=== PATIENT | female | born 1960 | race Caucasian/White ===

== ENCOUNTER 2016-11-14 18:58 | Inpatient (IN) | payer MEDICAID ==
[~2016-11-14] VITALS: Ht 172.7 cm; Wt 95.7 kg
[2016-11-14 20:00] VITALS: BP 110/59
[2016-11-14 20:41] VITALS: BP 110/59; BMI 32.1
--- NOTE | 2016-11-14 21:00 | NUR ---
Received patient resting in bed with eyes open, assessment completed per flowsheet. Patient AO x4, calm and cooperative. Eyes PERRLA @ 4mm with brisk response, sclera is white. S1/S2 noted rhytmic and regular. Breathing is slightly shallow with frequent non-productive cough, crackles and expiratory wheeze noted bilateral upper and mid with diminished lower. Patient ambulates self to bathroom w/o assistance. Full ROM all extremities with all pulses palpable, cap refill < sec with skin warm/dry to touch. 20g PIV L hand, salin locked. Patient c/o chronic pain back and ankle, repositioned and will provide PRN medication when available. [place] tray provided, no further needs at this time. All VSS and will continue to monitor.
--- NOTE | 2016-11-14 23:00 | NUR ---
Patient resting in bed with eyes open watching TV, reassessment completed per flowsheet. S1/S2 noted rhythmic and regular. Breathing is slightly shallow on 2L via NC, crackles and expiratory wheeze noted bilateral upper and mid with diminished lower. All pulses palpable with cap refill < 3 sec, skin is warm/dry to touch. No further needs at this time, all VSS and will continue to monitor.
[2016-11-15] VITALS: BP 95/54
--- NOTE | 2016-11-15 01:00 | NUR ---
Patient resting in bed with eyes closed, no further needs at this time. All VSS and will continue to monitor.
[2016-11-15 01:07] LABS: BASOPHILS 0.1 % (0-2); EOSINOPHILS 1.9 % (0-7); HEMATOCRIT 37.6 % (36.0-48.0); HEMOGLOBIN 12.8 g/dL (12-16); IMMATURE GRANULOCYTES 0.2 % (0-5); LYMPHOCYTES 15.1 % (15-50); MCV 96.9 fL (80.0-100.0); MEAN PLATELET VOLUME 9.1 fL (7.4-10.4); MONOCYTES 9.7 % (2-11); PLATELET COUNT 261 10x3/uL (130-400); RBC 3.88 10x6/uL (4.00-5.40); RDW 14.5 % (11.5-14.5); WBC 12.5 10x3/uL (4.8-10.8)
[2016-11-15 01:32] LABS: ALKALINE PHOSPHATASE 60 U/L (46-116); ALT (SGPT) 35 U/L (10-68); CALC OSMOLALITY 277 mosm/kg (275-300); CARBON DIOXIDE 28.4 mmol/L (21.0-32.0); CHLORIDE - SERUM 101 mmol/L (98-107); CREATININE - SERUM 0.8 mg/dL (0.6-1.3); GLUCOSE 104 mg/dL (74-106); POTASSIUM - SERUM 3.2 mmol/L (3.5-5.1); PRO BNP 185 pg/mL (0-125); PROTEIN - SERUM 6.6 g/dL (6.4-8.2); SODIUM 140 mmol/L (136-145); UREA NITROGEN 10 mg/dL (7-18); eGFR NON AFRICAN AMERICAN 78 mL/min (90-120)
--- NOTE | 2016-11-15 03:00 | NUR ---
Reassessment completed per flowsheet, patient resting in bed with eyes closed. S1/S2 noted rhythmic and regular. Breathing is slightly shallow with frequent non-productive cough, crackles and expiratory wheeze noted bilateral upper with diminished lower. Patient c/o "feeling hot", temp checked and 98.4 result. All pulses palpable with cap refill < 3 sec, skin warm/dry to touch. All VSS and will continue to monitor.
[2016-11-15 03:59] VITALS: BP 107/50
--- NOTE | 2016-11-15 05:00 | NUR ---
Patient resting in bed with eyes closed, breathing is slightly shallow on 2L via NC. Patient denies pain or other needs at this time, all VSS and will continue to monitor.
--- NOTE | 2016-11-15 07:30 | NUR ---
PT IS RECEIVED LYING IN BED. SHE IS COUGHING. I ASKED HER IF SHE SMOKES. SHE STATES YES THAT IS ANOTHER REASON IM HAVING PROBLEMS, I HAVEN'T HAD A CIGARETTE SINCE YESTERDAY. I ASKED IF SHE WOULD LIKED TO HAVE A NICOTINE PATCH AND SHE STATES YES. SHE IS ON O2 AT 2L VIA NC. IV NOTED LEFT HAND PATENT WITH NS AT 60 CC/HR INFUSING. SHE IS PRESENTLY RECEIVING BREATHING TREATMENT. SHE STATES THAT HER PAIN IS AN ASKED. WHEN ASKED WHERE HER PAIN IS SHE STATES SEVERAL AREAS OF HER BODY THAT HURT HER. GEN- AWAKE AND ALERT- LUNGS - WITH CRACKLES BILATERALLY. HEART- RRR. ABD- OBESE, SOFT, NT. EXT-NO EDEMA NOTED. BED IA LOW, SIDE RAILS UP X 2 AND CALL LIGHT IN REACH.
[2016-11-15 07:46] LABS: BASOPHILS 0.1 % (0-2); EOSINOPHILS 2.6 % (0-7); HEMATOCRIT 37.6 % (36.0-48.0); HEMOGLOBIN 12.6 g/dL (12-16); IMMATURE GRANULOCYTES 0.2 % (0-5); LYMPHOCYTES 20.3 % (15-50); MCH 32.7 pg (26.0-34.0); MCHC 33.5 g/dL (31.0-37.0); MCV 97.7 fL (80.0-100.0); MEAN PLATELET VOLUME 9.1 fL (7.4-10.4); MONOCYTES 11.1 % (2-11); NEUTROPHILS 65.7 % (40-80); PLATELET COUNT 259 10x3/uL (130-400); RBC 3.85 10x6/uL (4.00-5.40); RDW 14.6 % (11.5-14.5); WBC 11.1 10x3/uL (4.8-10.8)
[2016-11-15 08:11] LABS: ALKALINE PHOSPHATASE 63 U/L (46-116); ALT (SGPT) 34 U/L (10-68); CALC OSMOLALITY 280 mosm/kg (275-300); CALCIUM 9.2 mg/dL (8.5-10.1); CARBON DIOXIDE 29.7 mmol/L (21.0-32.0); CHLORIDE - SERUM 102 mmol/L (98-107); CREATININE - SERUM 0.8 mg/dL (0.6-1.3); GLUCOSE 86 mg/dL (74-106); POTASSIUM - SERUM 3.2 mmol/L (3.5-5.1); PROTEIN - SERUM 6.8 g/dL (6.4-8.2); SODIUM 142 mmol/L (136-145); UREA NITROGEN 9 mg/dL (7-18); eGFR NON AFRICAN AMERICAN 78 mL/min (90-120)
--- NOTE | 2016-11-15 09:00 | NUR ---
PT REQUEST NICOTINE PATCH. SHE SMOKES 2 PKS A DAY DISCUSSED WITH CHRISTIANO CHICAS. SHE WILL ORDER/
[2016-11-15 09:24] VITALS: BP 195/134
--- NOTE | 2016-11-15 10:53 | NUR ---
PT LYING IN BED. SHE REQUEST A FAN BECAUSE SHE IS HOT.
--- NOTE | 2016-11-15 11:48 | NUR ---
IV OUT. 22GA X 1 STICK TO LEFT FOREARM. IV POLE LEFT ON RIGHT SIDE OF BED TO ALLOW FOR EASE TO BATHROOM. ALL MEDS INCL ANTIBIOTICS AND PAIN PILLS REVIEWED WITH PATIENT ALONG WITH DIAGNOSIS. STATES UNDERSTANDING. CALL LIGHT IN REACH
[2016-11-15 13:39] VITALS: Ht 172.7 cm; Wt 95.7 kg
[2016-11-15 14:02] VITALS: BP 113/61
--- NOTE | 2016-11-15 15:40 | NUR ---
PT IS SITTING UP IN MED VISITING WITH HER DAUGHTER. PT OFFERS NO COMPLAINTS. BED IS LOW. SIDE RAILS UP X 2 AND CALL LIGHT IN REACH. DR LOPEZ TO SEE PT.
[2016-11-15 16:20] VITALS: BP 123/71
[2016-11-15 20:00] VITALS: BP 114/72
--- NOTE | 2016-11-15 23:45 | NUR ---
PATIENT IS RESTING QUIETLY WITH EYES CLOSED. LAYING ON HER RIGHT SIDE. RECIEVING OXYGEN VIA NASAL CANNULA. PATIENT AROUSED EASILY, DENIES NEEDS. BED IN LOWEST POSITION, CALL LIGHT IN REACH. BED RIALS UP X'S 2. HOB 40 DEGREES.
[2016-11-16] VITALS: BP 120/73
[2016-11-16 04:00] VITALS: BP 122/80
--- NOTE | 2016-11-16 07:40 | NUR ---
AMBULATED TO RESTROOM AT THIS TIME WITHOUT DIFFICULTY. DENIES NEEDS. IV PATENT. CALL LIGHT IN REACH, WILL CONTINUE WITH PLAN OF CARE.
[2016-11-16 08:21] VITALS: BP 107/66
--- NOTE | 2016-11-16 10:29 | NUR ---
PT COMPLAINS OF FREQUENT DIARRHEA WITH 4 STOOLS TODAY. ORDER OBTAINED FOR C-DIFF CHECK. EXPLAINED THIS TO PT. VERBALIZES UNDERSTANDING. WILL TEST NEXT SAMPLE OF FECES.
--- NOTE | 2016-11-16 10:36 | NUR ---
PT CURRENTLY AWAKE [id number]% BILATERAL CRACKLES AND EXPIRATORY WHEEZING NOTED TO APICAL AREAS OF THE LUNGS. STRONG LOOSE NON PRODUCTIVE COUGH. ALERT AND ORIENTATED X 3. PT APPEARS TO BE VENTILATING ADEQUATE NO SIGNS OF SEVERE RESPIRATORY DISTRESS
[2016-11-16] MEDS ORDERED: VICTOZA0.6 MG/0.1 SQ (11:14)
[2016-11-16] MEDS ORDERED: K-DUR20 MEQ PO (11:15)
[2016-11-16] MEDS ORDERED: VYVANSE40 MG PO (11:15)
[2016-11-16] MEDS ORDERED: CARDIZEM30 MG PO (11:15)
[2016-11-16] MEDS ORDERED: HYDROCODONE-APA1 TAB PO (11:15)
[2016-11-16] MEDS ORDERED: VITAMIN D250000 UNIT PO (11:17)
[2016-11-16] MEDS ORDERED: KLONOPIN0.5 MG PO (11:19)
[2016-11-16] MEDS ORDERED: VITAMIN B-1000 MCG/M IM (11:19)
[2016-11-16] MEDS ORDERED: ALBUTEROL2.5 MG/3 M INH (11:20)
[2016-11-16] MEDS ORDERED: ROBAXIN500 MG PO (11:20)
[2016-11-16] MEDS ORDERED: FLUTICASONE PRO16 GM NASAL (11:21)
[2016-11-16] MEDS ORDERED: HCTZ25 MG PO (11:21)
[2016-11-16] MEDS ORDERED: LOVASTATIN40 MG PO (11:21)
[2016-11-16] MEDS ORDERED: GABAPENTIN100 MG PO (11:22)
[2016-11-16] MEDS ORDERED: PROAIR HFA8.5 GM INH (11:22)
[2016-11-16] MEDS ORDERED: ARTHROTEC EC 71 EACH PO (11:23)
[2016-11-16] MEDS ORDERED: SPIRIVA18 MCG INH (11:24)
[2016-11-16] MEDS ORDERED: METFORMIN HCL500 M1 PO (11:24)
[2016-11-16] MEDS ORDERED: CYMBALTA60 MG PO (11:25)
[2016-11-16] MEDS ORDERED: ROTIGOTINE TRANSDERM (11:28)
[2016-11-16] MEDS ORDERED: PROMETRIUM100 MG PO (11:30)
[2016-11-16] MEDS ORDERED: BUTALB-APAP-CA1 EACH PO (11:31)
[2016-11-16] MEDS ORDERED: ABILIFY10 MG PO (11:31)
[2016-11-16] MEDS ORDERED: AMBIEN10 MG PO (11:32)
[2016-11-16] MEDS ORDERED: DOXEPIN HCL10 MG PO (11:32)
[2016-11-16] MEDS ORDERED: TEMAZEPAM30 MG PO (11:33)
[2016-11-16] MEDS ORDERED: OMEGA 3 FISH OI1 CAP PO (11:33)
--- NOTE | 2016-11-16 11:50 | NUR ---
PRN FIORCET ADMINISTERED FOR HEADACHE AT THIS TIME.
[2016-11-16 12:00] VITALS: BP 123/74
--- NOTE | 2016-11-16 13:05 | NUR ---
PLACED IN DROPLET ISOLATION DUE TO NEW ORDER FOR FLU SWAB. SWAB OBTAINED AND SENT TO LAB.
[2016-11-16 16:31] VITALS: BP 127/71
--- NOTE | 2016-11-16 19:15 | NUR ---
RECIEVED SHIFT REPORT. PT IS LYING IN BED. ALERT AND ORIENTED AND ABLE TO VERBALIZE NEEDS. IV IS PATENT AND FLUIDS ARE RUNNING PER ORDER. O2 @ 2 PER NASAL CANNULA. PT IS AMBULATORY BUT WAS INSTRUCTED TO CALL FOR ANY ASSISTANCE NEEDED. PT STATES PAIN IS 4/10. NO NEEDS ARE VERBALIZED AT THIS TIME. WILL CONTINUE TO MONITOR. SIDE RAILS ARE UP X 2. BED IS IN LOWEST POSITION. CALL LIGHT IS WITHIN REACH.
[2016-11-16 20:00] VITALS: BP 131/59
--- NOTE | 2016-11-16 21:22 | NUR ---
SHIFT ASSESSMENT COMPLETED. NIGHT MEDS GIVEN WITH NO PROBLEMS. PT RECIEVED 2 UNITS INSULIN PER SLIDING SCALE FOR QNCK=549. PT REQUESTING PRN AMBIEN FOR SLEEP. DENIES FURTHER NEEDS. WILL MONITOR. SIDE RAILS X 2. BED LOW. CALL LIGHT IN REACH.
[2016-11-17] VITALS: BP 117/68
[2016-11-17 04:00] VITALS: BP 126/70
[2016-11-17 04:55] LABS: BASOPHILS 0 % (0-2); EOSINOPHILS 0 % (0-7); HEMATOCRIT 33.3 % (36.0-48.0); HEMOGLOBIN 11.3 g/dL (12-16); IMMATURE GRANULOCYTES 0.2 % (0-5); LYMPHOCYTES 10.4 % (15-50); MCH 32.9 pg (26.0-34.0); MCHC 33.9 g/dL (31.0-37.0); MCV 97.1 fL (80.0-100.0); MONOCYTES 4.4 % (2-11); PLATELET COUNT 274 10x3/uL (130-400); RBC 3.43 10x6/uL (4.00-5.40); RDW 14.4 % (11.5-14.5); WBC 10.6 10x3/uL (4.8-10.8)
[2016-11-17 05:20] LABS: CALCIUM 8.6 mg/dL (8.5-10.1)
[2016-11-17 05:21] LABS: ANION GAP 18.6 mmol/L (8-16); CARBON DIOXIDE 22.2 mmol/L (21.0-32.0); POTASSIUM - SERUM 3.8 mmol/L (3.5-5.1)
--- NOTE | 2016-11-17 07:40 | NUR ---
SLEEPING AT THIS TIME WITH RESPIRATIONS EVEN AND NON LABORED. OXYGEN ON 2L VIA NC. CALL LIGHT IN REACH. WILL CONTINUE WITH PLAN OF CARE.
[2016-11-17 08:05] VITALS: BP 118/69
--- NOTE | 2016-11-17 09:51 | NUR ---
SCHEDULED MEDICATIONS ADMINISTERED AT THIS TIME. DENIES NEEDS. CALL LIGHT IN REACH. WILL CONTINUE WITH PLAN OF CARE.
--- NOTE | 2016-11-17 11:00 | NUR ---
AMBULATED PT TO [facility] WHERE SHE WITHDREW $260.00. ASKED PT IF SHE WOULD LIKE HER MONEY AND CARDS LOCKED UP IN THE SAFE AND SHE STATED YES. WILL NOTIFY PROPER DEPARTMENT FOR LOCK UP.
[2016-11-17 11:57] VITALS: BP 116/75
[2016-11-17 12:15] LABS: IMMUNOGLOBULIN E 143 IU/mL (0-100)
[2016-11-17 15:02] VITALS: BP 124/70
--- NOTE | 2016-11-17 19:00 | NUR ---
REPORT RECEIVED AND CARE OF PT ASSUMED. PT LYING IN HIGH SMALLS'S POSITION WATCHING TV. IV IN LEFT AC PATENT WITH NS INFUSING AT 60 ML / HR. O2 IN USE AT 2L VIA NC. WILL MONITOR CLOSELY FOR NEEDS. CALL LIGHT WITHIN REACH.
[2016-11-17 20:00] VITALS: BP 108/67
--- NOTE | 2016-11-17 21:15 | NUR ---
PT AMBULATED TO VENDING MACHINES WITH DAUGHTER.
--- NOTE | 2016-11-17 21:33 | NUR ---
HS MEDICATIONS GIVEN TO INCLUDE AMBIEN 10 MG PER PT REQUEST. FSBS 146 THIS CHECK REQUIRING NO COVERAGE PER SLIDING SCALE.
[2016-11-18] VITALS: BP 127/63
--- NOTE | 2016-11-18 01:02 | NUR ---
PT RESTING QUIETLY IN SEMI SMALLS'S POSITION WATCHING TV. O2 IN USE AT 2L VIA NC. IV IN LEFT AC PATENT WITH NS INFUSING AT 60 ML / HR. WILL MONITOR CLOS[place] FOR NEEDS. CALL LIGHT WITHIN REACH.
[2016-11-18 04:00] VITALS: BP 122/77
[2016-11-18 05:40] LABS: BASOPHILS 0.1 % (0-2); EOSINOPHILS 0 % (0-7); HEMATOCRIT 32.8 % (36.0-48.0); HEMOGLOBIN 11.1 g/dL (12-16); IMMATURE GRANULOCYTES 0.4 % (0-5); LYMPHOCYTES 9.5 % (15-50); MCH 32.9 pg (26.0-34.0); MCHC 33.8 g/dL (31.0-37.0); MCV 97.3 fL (80.0-100.0); MEAN PLATELET VOLUME 9.5 fL (7.4-10.4); PLATELET COUNT 316 10x3/uL (130-400); RBC 3.37 10x6/uL (4.00-5.40); RDW 14.8 % (11.5-14.5)
[2016-11-18 05:43] LABS: WBC 16.8 10x3/uL (4.8-10.8)
[2016-11-18 06:06] LABS: % SATURATION 15 % (15-55); IRON 47 ug/dl (35-150); TOTAL IRON BIND CAPACITY 295 ug/dl (260-445); UNSAT IRON BIND CAPACITY 248 ug/dl (150-375)
[2016-11-18 06:18] LABS: ANION GAP 15.5 mmol/L (8-16); CALCIUM 8.7 mg/dL (8.5-10.1); CARBON DIOXIDE 24.6 mmol/L (21.0-32.0); CREATININE - SERUM 0.9 mg/dL (0.6-1.3); POTASSIUM - SERUM 4.1 mmol/L (3.5-5.1)
--- NOTE | 2016-11-18 06:39 | NUR ---
BLOOD SUGAR 148 THIS AM REQUIRING NO COVERAGE PER SLIDING SCALE.
--- NOTE | 2016-11-18 07:15 | NUR ---
PATIENT RECEIVED ALERT IN MID SMALLS POSITION. NO SIGNS OF DISTRESS NOTED. DENIES NEEDS. SIDE RAILS UP X2. BED IN LOW POSITION. CALL LIGHT IN REACH.
[2016-11-18 08:05] VITALS: BP 118/82
--- NOTE | 2016-11-18 09:10 | NUR ---
PATIENT ALERT IN HIGH SMALLS POSITION. NO SIGNS OF DISTRESS NOTED. SCHEDULED MEDICATION ADMINISTERED. REFUSES SCDS. DENIES NEEDS. BED IN LOW POSITION. SIDE RAILS UP X2. CALL LIGHT IN REACH.
--- NOTE | 2016-11-18 12:02 | NUR ---
ACCU CHECK 178. INSULIN PER SLIDING SCALE. SCHEDULED MEDICATION ADMINISTERED. DENIES NEEDS. BED IN LOW POSITION. CALL LIGHT IN REACH.
[2016-11-18 12:28] VITALS: BP 112/52
--- NOTE | 2016-11-18 14:45 | NUR ---
JENNA FROM ADMISSIONS HERE TO RETURN PATIENT BELONGINGS FROM LOCK UP IN SAFE PER PATIENT REQUEST. INFORMED PATIENT SHE WOULD BE RESPONSIBLE FOR BELONGINGS AND HOSPITAL COULD NOT BE LIABLE IF ANYTHING BECAME MISSING. STATES UNDERSTANDING.
--- NOTE | 2016-11-18 14:58 | NUR ---
NUTRITION F/U CHART REVIEWED. PT TOLERATING REG LOW FAT/NCS DIET. ~50% INTAKE RECENT MEALS. WILL CONTINUE TO PROVIDE DIET, MONITOR PO INTAKE. RD FOLLOWING
[2016-11-18 16:00] VITALS: BP 117/69
--- NOTE | 2016-11-18 16:00 | NUR ---
ALERT IN BED. NO SIGNS OF DISTRESS NOTED. ACCU CHECK 134. DENIES NEEDS. SIDE RAILS UP X2. BED IN LOW POSITION. CALL LIGHT IN REACH.
--- NOTE | 2016-11-18 17:10 | NUR ---
PATIENT ALERT IN BED EATING DINNER AND WATCHING TV. NO SIGNS OF DISTRESS NOTED. DENIES NEEDS. SIDE RAILS UP X2. BED IN LOW POSITION. CALL LIGHT IN REACH.
[2016-11-18 20:00] VITALS: BP 123/70
--- NOTE | 2016-11-18 21:33 | NUR ---
HS MEDICATIONS GIVEN TO INCLUDE AMBIEN 10 MG PO PER PRN ORDER. WILL CONTINUE TO MONITOR FOR NEEDS.
--- NOTE | 2016-11-18 21:33 | NUR ---
REPORT RECEIVED AND CARE OF PT ASSUMED. PT LYING IN HIGH SMALLS'S POSITION WATCHING TV. IV IN LEFT FA PATENT WITH NS INFUSING AT 60 ML / HR. O2 IN USE AT 3L VIA NC. WILL MONITOR CLOSELY FOR NEEDS. CALL LIGHT WITHIN REACH.
--- NOTE | 2016-11-18 21:50 | NUR ---
CALLED TO PT ROOM...SHE ASKED IF SHE COULD "GO WALKING AROUND DOWNSTAIRS". EXPLAINED THAT SHE HAD JUST TAKEN AN ENTIRE CUP OF NIGHTTIME MEDS THAT WERE SEDATING, AND THAT SHE NEEDED TO STAY IN HER ROOM FOR SAFETY. PT STATES UNDERSTANDING.
[2016-11-19] VITALS: BP 126/71
--- NOTE | 2016-11-19 00:15 | NUR ---
IV LEAKING. ATTEMPTED TO RE-SITE SEVERAL TIMES BY 2 NURSES WITHOUT SUCCESS. REMOVED ALL TAPE AND OCCLUSIVE DRESSING ON IV IN LEFT FA AND RE-TAPED...NOT LEAKING AT THIS TIME. WILL CONTINUE TO MONITOR CLOSELY.
[2016-11-19 04:09] VITALS: BP 135/85
--- NOTE | 2016-11-19 06:30 | NUR ---
PT UP AND DOWN ALL NIGHT...IN BED RESTING NOW. FSBS 145 THIS AM REQUIRING NO COVERAGE PER SLIDING SCALE. CONTINUE PLAN OF CARE.
[2016-11-19 06:33] LABS: BASOPHILS 0.1 % (0-2); EOSINOPHILS 0 % (0-7); HEMATOCRIT 32.8 % (36.0-48.0); IMMATURE GRANULOCYTES 1.4 % (0-5); LYMPHOCYTES 10.6 % (15-50); MCH 32.5 pg (26.0-34.0); MCHC 33.5 g/dL (31.0-37.0); MEAN PLATELET VOLUME 9.7 fL (7.4-10.4); MONOCYTES 6.8 % (2-11); NEUTROPHILS 81.1 % (40-80); PLATELET COUNT 332 10x3/uL (130-400); RBC 3.38 10x6/uL (4.00-5.40); RDW 14.5 % (11.5-14.5); WBC 17.6 10x3/uL (4.8-10.8)
[2016-11-19 06:46] LABS: ANION GAP 12.6 mmol/L (8-16); CALCIUM 8.8 mg/dL (8.5-10.1); CARBON DIOXIDE 27.6 mmol/L (21.0-32.0); MAGNESIUM - SERUM 1.5 mg/dL (1.8-2.4); PHOSPHOROUS 3.1 mg/dL (2.5-4.9); POTASSIUM - SERUM 4.2 mmol/L (3.5-5.1)
--- NOTE | 2016-11-19 07:40 | NUR ---
PATIENT RECEIVED ALERT IN MID SMALLS POSITION. RESPIRATIONS EVEN AND UNLABORED. DENIES NEEDS. SIDE RAILS UP X2. BED IN LOW POSITION. CALL LIGHT IN REACH
[2016-11-19 08:10] VITALS: BP 154/88
--- NOTE | 2016-11-19 09:00 | NUR ---
PATIENT ALERT IN HIGH SMALLS POSITION. RESPIRATIONS EVEN AND UNLABORED. SCHEDULED MEDICATION ADMINISTERED. DENIES NEEDS. SIDE RAILS UP X2. BED IN LOW POSITION. CALL LIGHT IN REACH.
--- NOTE | 2016-11-19 10:05 | NUR ---
IV TO LEFT FOREARM INFILTRATED. IV D/C BY [facility] TRONCOSO
--- NOTE | 2016-11-19 11:15 | NUR ---
ACCU CHECK 192. INSULIN PER SLIDING SCALE. DENIES NEEDS. SIDE RAILS UP X2. BED IN LOW POSITION. CALL LIGHT IN REACH.
[2016-11-19 12:40] VITALS: BP 142/89
--- NOTE | 2016-11-19 14:02 | NUR ---
ALERT IN BED. NO SIGNS OF DISTRESS NOTED. SCHEDULED MEDICATION ADMINISTERED. DENIES NEEDS. SIDE RAILS UP X2. BED IN LOW POSITION. CALL LIGHT IN REACH.
[2016-11-19 15:57] VITALS: BP 142/70
--- NOTE | 2016-11-19 16:16 | NUR ---
ALERT IN BED VISITING WITH GUEST. NO SIGNS OF DISTRESS NOTED. ACCU CHECK 137. DENIES NEEDS. BED IN LOW POSITION. SIDE RAILS UP X2. CALL LIGHT IN REACH.
--- NOTE | 2016-11-19 19:05 | NUR ---
BEDSIDE REPORT RECEIVED AND CARE OF PT ASSUMED. PT LYING IN HIGH SMALLS'S POSITON WATCHING TV. IV IN RIGHT WRIST PATENT WITH NS INFUSING AT 60 ML / HR. LUNGS SOUNDS WITH RONCHI IN ALL LUNG ARREDONDO. O2 IN USE AT 2L VIA NC. WILL MONITOR CLOSELY FOR NEEDS.
--- NOTE | 2016-11-19 19:26 | NUR ---
GAVE ROBAXIN PO PER PT REQUEST, PER PRN ORDER. WILL MONITOR FOR EFFECTIVENESS.
[2016-11-19 20:00] VITALS: BP 147/98
--- NOTE | 2016-11-19 20:54 | NUR ---
HS MEDICATIONS GIVEN. WILL CONTINUE TO MONITOR FOR NEEDS.
[2016-11-20] VITALS: BP 141/80
[2016-11-20 04:00] VITALS: BP 121/76
[2016-11-20 06:44] LABS: BASOPHILS 0.1 % (0-2); EOSINOPHILS 0 % (0-7); HEMATOCRIT 32.5 % (36.0-48.0); HEMOGLOBIN 10.9 g/dL (12-16); IMMATURE GRANULOCYTES 2.5 % (0-5); MCH 32.4 pg (26.0-34.0); MCHC 33.5 g/dL (31.0-37.0); MCV 96.7 fL (80.0-100.0); MEAN PLATELET VOLUME 10.1 fL (7.4-10.4); MONOCYTES 8.5 % (2-11); NEUTROPHILS 74.9 % (40-80); PLATELET COUNT 356 10x3/uL (130-400); RBC 3.36 10x6/uL (4.00-5.40); RDW 14.4 % (11.5-14.5); WBC 13.6 10x3/uL (4.8-10.8)
[2016-11-20 07:00] LABS: ANION GAP 12.7 mmol/L (8-16); CALCIUM 8.4 mg/dL (8.5-10.1); CARBON DIOXIDE 29.3 mmol/L (21.0-32.0); CREATININE - SERUM 0.9 mg/dL (0.6-1.3)
--- NOTE | 2016-11-20 07:10 | NUR ---
PATEINT RECEIVED SITTING UP IN CHAIR ALERT. NO SIGNS OF DISTRESS NOTED. DENIES NEEDS. CALL LIGHT IN REACH.
[2016-11-20 08:20] VITALS: BP 144/81
--- NOTE | 2016-11-20 08:45 | NUR ---
PATIENT SITTING UP IN CHAIR AT BEDSIDE. NO SIGNS OF DISTRESS NOTED. SCHEDULED MEDICATION ADMINISTERED. CALL LIGHT IN REACH.
--- NOTE | 2016-11-20 09:15 | NUR ---
PATIENT UP AMBULATING IN HALLWAY WITHOUT ASSIST. NO SIGNS OF DITRESS NOTED.
--- NOTE | 2016-11-20 12:13 | NUR ---
PATIENT ALERT IN BED WATCHING TV. ACCU CHECK 107. DENIES NEEDS. SIDE RAILS UP X2. BED IN LOW POSITION. CALL LIGHT IN REACH.
[2016-11-20 12:43] VITALS: BP 162/95
[2016-11-20 15:44] VITALS: BP 149/95
--- NOTE | 2016-11-20 16:05 | NUR ---
ALERT IN BED WATCHING TV. ACCU CHECK 226. INSULIN PER SLIDING SCALE. NO FURTHER NEEDS VOICED. SIDE RAILS UP X2. BED IN LOW POSITION. CALL LIGHT IN REACH.
--- NOTE | 2016-11-20 19:00 | NUR ---
BEDSIDE REPORT RECEIVED AND CARE OF PT ASSUMED. PT INFORMED THAT DR DOBBINS CALLED AND HAS ORDERED THAT SHE NOT LEAVE THE FLOOR, TAMMIE NOT TO GO OUTSIDE AND SMOKE. PT VOICES UNDERSTANDING. WILL MONITOR CLOSELY FOR NEEDS.
--- NOTE | 2016-11-20 19:00 | NUR ---
NOTIFIED BY DR DOBBINS THAT HE HAS SEEN THE PATIENT OUTSIDE SMOKING BY THE ER AND THAT HE HAD SPOKE WITH HER. PATIENT WAS ENCOURAGED TO NOT LEAVE THE UNIT AND IF WANTING TO WALK TO REMAIN ON THE MED/SURG UNIT.
[2016-11-20 20:00] VITALS: BP 139/80
--- NOTE | 2016-11-20 21:22 | NUR ---
HS MEDICATIONS GIVEN. FSBS 176 THIS CHECK...COVERAGE WITH INSULIN DECLINED, PT TAKING 1500 MG OF METFORMIN AT THIS MED PASS. WILL CONTINUE TO MONITOR FOR NEEDS.
[2016-11-21] VITALS: BP 116/74
--- NOTE | 2016-11-21 03:24 | NUR ---
PT RESTING QUIESTLY IN SEMI SMALLS'S POSITION WITH UNLABORED BREATHING. WILL CONTINUE TO MONITOR FOR NEEDS.
[2016-11-21 04:00] VITALS: BP 149/98
[2016-11-21 05:37] LABS: BASOPHILS 0.1 % (0-2); EOSINOPHILS 0 % (0-7); HEMATOCRIT 34.3 % (36.0-48.0); HEMOGLOBIN 11.7 g/dL (12-16); IMMATURE GRANULOCYTES 7.5 % (0-5); LYMPHOCYTES 16.1 % (15-50); MCH 32.8 pg (26.0-34.0); MCHC 34.1 g/dL (31.0-37.0); MCV 96.1 fL (80.0-100.0); MEAN PLATELET VOLUME 9.9 fL (7.4-10.4); MONOCYTES 8.1 % (2-11); NEUTROPHILS 68.2 % (40-80); PLATELET COUNT 417 10x3/uL (130-400); RBC 3.57 10x6/uL (4.00-5.40); RDW 14.4 % (11.5-14.5); WBC 14.3 10x3/uL (4.8-10.8)
[2016-11-21 06:07] LABS: ANION GAP 15.2 mmol/L (8-16); CALCIUM 8.7 mg/dL (8.5-10.1); CARBON DIOXIDE 28.9 mmol/L (21.0-32.0); CREATININE - SERUM 0.9 mg/dL (0.6-1.3); POTASSIUM - SERUM 4.1 mmol/L (3.5-5.1)
--- NOTE | 2016-11-21 07:30 | NUR ---
IN BED AT THIS TIME WITH RESPIRATIONS EVEN AND NON LABORED. OXYGEN ON 2L VIA NC. CALL LIGHT IN REACH. DENIES NEEDS AT THIS TIME. WILL CONTINUE WITH PLAN OF CARE.
--- NOTE | 2016-11-21 08:28 | NUR ---
SCHEDULED MEDICATIONS ADMINISTERED AT THIS TIME. UP IN CHAIR INDEPENDENTLY. OXYGEN ON 2L VIA NC. CALL LIGHT IN REACH. WILL CONTINUE WITH PLAN OF CARE.
[2016-11-21 08:54] VITALS: BP 150/88
[2016-11-21] MEDS ORDERED: ZITHROMAX250 MG PO (10:04)
[2016-11-21] MEDS ORDERED: OMNICEF300 MG PO (10:04)
--- NOTE | 2016-11-21 11:23 | NUR ---
IV TO RIGHT HAND D/C WITH CATH TIP INTACT. D/C PAPERWORK REVIEWED WITH PT DENIES QUESTIONS OR CONCERNS.
== END 2016-11-21 11:24 | disposition home or self-care (01) | DRG 178 ==
LOC: D.MS 18:58
PROVIDERS: Internal Medicine Pulmonary Disease; ADMIT Family Medicine
DX: J69.0 Pneumonitis due to inhalation of food and vomit (principal); J44.0 Chronic obstructive pulmonary disease with (acute) lower respiratory infection; J45.901 Unspecified asthma with (acute) exacerbation; J44.1 Chronic obstructive pulmonary disease with (acute) exacerbation; J18.9 Pneumonia, unspecified organism; I10 Essential (primary) hypertension; E78.5 Hyperlipidemia, unspecified; E87.6 Hypokalemia; R19.7 Diarrhea, unspecified; J20.9 Acute bronchitis, unspecified; K21.9 Gastro-esophageal reflux disease without esophagitis; M79.7 Fibromyalgia; E74.39 Other disorders of intestinal carbohydrate absorption

== ENCOUNTER → 2017-03-22 11:07 | Outpatient (CLI) | payer MEDICAID ==
[2016-11-15 13:39] VITALS: BMI 32.0
[~2017-03-22 11:07] MED LIST: ABILIFY10 MG PO; ALBUTEROL2.5 MG/3 M INH; AMBIEN10 MG PO; ARTHROTEC EC 71 EACH PO; BUTALB-APAP-CA1 EACH PO; CARDIZEM30 MG PO; CYMBALTA60 MG PO; DOXEPIN HCL10 MG PO; FLUTICASONE PRO16 GM NASAL; GABAPENTIN100 MG PO; HCTZ25 MG PO; HYDROCODONE-APA1 TAB PO; K-DUR20 MEQ PO; KLONOPIN0.5 MG PO; LOVASTATIN40 MG PO; METFORMIN HCL500 M1 PO; OMEGA 3 FISH OI1 CAP PO; OMNICEF300 MG PO; PROAIR HFA8.5 GM INH; PROMETRIUM100 MG PO; ROBAXIN500 MG PO; ROTIGOTINE TRANSDERM; SPIRIVA18 MCG INH; TEMAZEPAM30 MG PO; VICTOZA0.6 MG/0.1 SQ; VITAMIN B-1000 MCG/M IM; VITAMIN D250000 UNIT PO; VYVANSE40 MG PO; ZITHROMAX250 MG PO
== END | disposition home or self-care (01) ==
LOC: D.RT 11:00
DX: J44.9 Chronic obstructive pulmonary disease, unspecified (principal); Z87.01 Personal history of pneumonia (recurrent)

== ENCOUNTER 2017-12-09 09:50 | Inpatient (IN) | payer MEDICAID ==
[~2017-12-09] VITALS: Ht 172.7 cm; Wt 100.7 kg
[2017-12-09] VITALS (8 sets, daily range): BP systolic 85–136; BP diastolic 46–98; BMI 33.8
[2017-12-09 10:41] LABS: BASOPHILS 0.1 % (0-2); EOSINOPHILS 2.7 % (0-7); HEMATOCRIT 37.7 % (36.0-48.0); HEMOGLOBIN 13.4 g/dL (12-16); IMMATURE GRANULOCYTES 0.3 % (0-5); MCH 32.9 pg (26.0-34.0); MCHC 35.5 g/dL (31.0-37.0); MCV 92.6 fL (80.0-100.0); MEAN PLATELET VOLUME 9.4 fL (7.4-10.4); MONOCYTES 11.4 % (2-11); NEUTROPHILS 54.5 % (40-80); RBC 4.07 10x6/uL (4.00-5.40); RDW 13.3 % (11.5-14.5); WBC 10.6 10x3/uL (4.8-10.8)
[2017-12-09 10:50] LABS: PLATELET COUNT 296 10x3/uL (130-400)
[2017-12-09 10:54] LABS: INR 0.96 (0.85-1.17); PROTIME 12.4 SECONDS (11.6-15.0)
[2017-12-09 10:55] LABS: D-DIMER-QUANTITATIVE 0.46 ug/mLFEU (0.20-0.54)
[2017-12-09 10:57] LABS: ALBUMIN 3.3 g/dL (3.4-5.0); ALKALINE PHOSPHATASE 83 U/L (46-116); ALT (SGPT) 28 U/L (10-68); BILIRUBIN - TOTAL 0.39 mg/dL (0.2-1.3); CALC OSMOLALITY 259 mosm/kg (275-300); CALCIUM 8.9 mg/dL (8.5-10.1); CARBON DIOXIDE 28.6 mmol/L (21.0-32.0); CHLORIDE - SERUM 91 mmol/L (98-107); CREATININE - SERUM 0.8 mg/dL (0.6-1.3); GLUCOSE 80 mg/dL (74-106); PROTEIN - SERUM 7.2 g/dL (6.4-8.2); SODIUM 131 mmol/L (136-145); UREA NITROGEN 8 mg/dL (7-18); eGFR NON AFRICAN AMERICAN 78 mL/min (90-120)
[2017-12-09 11:08] LABS: CKMB 6.3 U/L (0.0-3.6); CREATINE KINASE 344 UL (21-215); PRO BNP 108 pg/mL (0-125)
[2017-12-09 11:10] LABS: TROPONIN-I < 0.017 ng/mL (0.000-0.060)
[2017-12-10 05:26] VITALS: BP 145/91
[2017-12-10 07:11] LABS: HEMATOCRIT 38.7 % (36.0-48.0); HEMOGLOBIN 13.5 g/dL (12-16); MCH 32.6 pg (26.0-34.0); MCHC 34.9 g/dL (31.0-37.0); MCV 93.5 fL (80.0-100.0); MEAN PLATELET VOLUME 9.8 fL (7.4-10.4); PLATELET COUNT 298 10x3/uL (130-400); RBC 4.14 10x6/uL (4.00-5.40); RDW 13.4 % (11.5-14.5); WBC 22.5 10x3/uL (4.8-10.8)
[2017-12-10 07:27] LABS: ALBUMIN 3.3 g/dL (3.4-5.0); ANION GAP 17.2 mmol/L (8-16); BILIRUBIN - TOTAL 0.21 mg/dL (0.2-1.3); CALCIUM 9.1 mg/dL (8.5-10.1); CARBON DIOXIDE 25.8 mmol/L (21.0-32.0); CREATININE - SERUM 0.9 mg/dL (0.6-1.3); MAGNESIUM - SERUM 1.5 mg/dL (1.8-2.4); PROTEIN - SERUM 7.2 g/dL (6.4-8.2)
[2017-12-10 07:57] VITALS: BP 131/86
[2017-12-10 08:23] LABS: LYMPHOCYTES 4 % (15-50); NEUTROPHILS 96 % (40-80); PLATELET ESTIMATE NORMAL; ROULEAUX 1+
[2017-12-10 11:30] VITALS: BP 132/58
[2017-12-10 15:55] VITALS: BP 140/68
[2017-12-10 21:06] VITALS: BP 118/81
[2017-12-11 05:34] LABS: BASOPHILS 0.1 % (0-2); EOSINOPHILS 0 % (0-7); HEMATOCRIT 33.6 % (36.0-48.0); HEMOGLOBIN 11.9 g/dL (12-16); IMMATURE GRANULOCYTES 0.7 % (0-5); LYMPHOCYTES 10.1 % (15-50); MCH 32.8 pg (26.0-34.0); MCHC 35.4 g/dL (31.0-37.0); MCV 92.6 fL (80.0-100.0); MEAN PLATELET VOLUME 9.4 fL (7.4-10.4); MONOCYTES 8.5 % (2-11); NEUTROPHILS 80.6 % (40-80); PLATELET COUNT 350 10x3/uL (130-400); RBC 3.63 10x6/uL (4.00-5.40); RDW 13.6 % (11.5-14.5); WBC 31.4 10x3/uL (4.8-10.8)
[2017-12-11 05:39] VITALS: BP 127/73
[2017-12-11 05:47] LABS: ALBUMIN 2.9 g/dL (3.4-5.0); ANION GAP 13.3 mmol/L (8-16); BILIRUBIN - TOTAL 0.22 mg/dL (0.2-1.3); CALCIUM 8.7 mg/dL (8.5-10.1); CARBON DIOXIDE 27.7 mmol/L (21.0-32.0); CREATININE - SERUM 0.9 mg/dL (0.6-1.3); MAGNESIUM - SERUM 1.6 mg/dL (1.8-2.4); PROTEIN - SERUM 6.7 g/dL (6.4-8.2)
[2017-12-11 07:22] VITALS: BP 123/80
[2017-12-11 11:10] VITALS: BP 121/60
[2017-12-11 15:04] VITALS: Ht 172.7 cm; Wt 100.7 kg
[2017-12-11 15:25] VITALS: BP 115/68
[2017-12-11 20:40] VITALS: BP 137/80
[2017-12-12 05:58] LABS: BASOPHILS 0.4 % (0-2); HEMATOCRIT 37.3 % (36.0-48.0); HEMOGLOBIN 12.7 g/dL (12-16); IMMATURE GRANULOCYTES 0.4 % (0-5); LYMPHOCYTES 24.4 % (15-50); MCH 31.3 pg (26.0-34.0); MCV 91.9 fL (80.0-100.0); MEAN PLATELET VOLUME 9.6 fL (7.4-10.4); MONOCYTES 7.9 % (2-11); NEUTROPHILS 61.9 % (40-80); RBC 4.06 10x6/uL (4.00-5.40); RDW 13.7 % (11.5-14.5)
[2017-12-12 06:21] LABS: PLATELET COUNT 245 10x3/uL (130-400); WBC 8.6 10x3/uL (4.8-10.8)
[2017-12-12 06:37] LABS: ALBUMIN 2.9 g/dL (3.4-5.0); ALKALINE PHOSPHATASE 67 U/L (46-116); ALT (SGPT) 42 U/L (10-68); BILIRUBIN - TOTAL 0.28 mg/dL (0.2-1.3); CALCIUM 8.9 mg/dL (8.5-10.1); CHLORIDE - SERUM 105 mmol/L (98-107); CREATININE - SERUM 0.8 mg/dL (0.6-1.3); GLUCOSE 103 mg/dL (74-106); MAGNESIUM - SERUM 1.7 mg/dL (1.8-2.4); POTASSIUM - SERUM 3.5 mmol/L (3.5-5.1); PROTEIN - SERUM 6.4 g/dL (6.4-8.2); SODIUM 140 mmol/L (136-145); eGFR NON AFRICAN AMERICAN 78 mL/min (90-120)
[2017-12-12 06:39] LABS: CALC OSMOLALITY 276 mosm/kg (275-300); UREA NITROGEN 8 mg/dL (7-18)
[2017-12-12 07:25] VITALS: BP 143/86
[2017-12-12 11:24] VITALS: BP 130/59
[2017-12-12] MEDS ORDERED: ZITHROMAX500 MG PO (14:00)
[2017-12-12 14:56] VITALS: BP 151/81
== END 2017-12-12 19:00 | disposition home or self-care (01) | DRG 193 ==
LOC: D.ER 09:50 → D.EDHOLD 16:04 → D.M3 16:04
PROVIDERS: Family Medicine
DX: J18.9 Pneumonia, unspecified organism (principal); J96.21 Acute and chronic respiratory failure with hypoxia; J44.0 Chronic obstructive pulmonary disease with (acute) lower respiratory infection; J44.1 Chronic obstructive pulmonary disease with (acute) exacerbation; E87.1 Hypo-osmolality and hyponatremia; F17.213 Nicotine dependence, cigarettes, with withdrawal; K21.9 Gastro-esophageal reflux disease without esophagitis; Z86.11 Personal history of tuberculosis; I10 Essential (primary) hypertension; E78.5 Hyperlipidemia, unspecified; E11.65 Type 2 diabetes mellitus with hyperglycemia; M19.90 Unspecified osteoarthritis, unspecified site; M79.7 Fibromyalgia; E83.42 Hypomagnesemia

== ENCOUNTER → 2018-06-29 12:42 | Outpatient (CLI) | payer MEDICAID ==
[2017-12-11 15:04] VITALS: BMI 33.7
[~2018-06-29 12:42] MED LIST changes: +ZITHROMAX500 MG PO
== END | disposition home or self-care (01) ==
LOC: D.HCCARDIO 12:42
PROVIDERS: ATTEND Internal Medicine Cardiovascular Disease
DX: I10 Essential (primary) hypertension (principal)

== ENCOUNTER 2018-07-24 17:51 | Observation (INO) | payer MEDICAID ==
[~2018-07-24] VITALS: Ht 172.7 cm; Wt 104.5 kg
--- NOTE | 2018-07-24 18:27 | NUR ---
PATIENT SENT FROM WALK IN CLINIC WITH LOW POTASSIUM, A/O X 3, PERRL, SKIN W/D, LUNG SOUNDS CLEAR AND EQUAL BI LAT, ABD SOFT NON TENDER OR DISTENDED, BOWEL SOUNDS POSITIVE X 4, SMCs INTACT X 4.
[2018-07-24 18:53] LABS: BASOPHILS 0.2 % (0-2); EOSINOPHILS 2.5 % (0-7); HEMATOCRIT 43.4 % (36.0-48.0); HEMOGLOBIN 15.1 g/dL (12-16); IMMATURE GRANULOCYTES 0.2 % (0-5); LYMPHOCYTES 31.5 % (15-50); MCHC 34.8 g/dL (31.0-37.0); MCV 94.8 fL (80.0-100.0); MEAN PLATELET VOLUME 10.1 fL (7.4-10.4); MONOCYTES 8.9 % (2-11); NEUTROPHILS 56.7 % (40-80); RBC 4.58 10x6/uL (4.00-5.40); RDW 13.4 % (11.5-14.5); WBC 13.2 10x3/uL (4.8-10.8)
[2018-07-24 19:04] LABS: PLATELET COUNT 298 10x3/uL (130-400)
[2018-07-24 19:08] LABS: ALBUMIN 3.9 g/dL (3.4-5.0); ANION GAP 11.2 mmol/L (8-16); BILIRUBIN - TOTAL 0.56 mg/dL (0.2-1.3); CARBON DIOXIDE 31.5 mmol/L (21.0-32.0); PROTEIN - SERUM 7.5 g/dL (6.4-8.2)
[2018-07-24 19:14] LABS: POTASSIUM - SERUM 2.7 mmol/L (3.5-5.1)
[2018-07-24 19:52] LABS: MAGNESIUM - SERUM 1.5 mg/dL (1.8-2.4)
[2018-07-24 20:44] LABS: CKMB 1.9 U/L (0.0-3.6); PRO BNP 30 pg/mL (0-125)
[2018-07-24 20:45] LABS: TROPONIN-I < 0.017 ng/mL (0.000-0.060)
[2018-07-25 01:04] VITALS: BP 140/78; BMI 33.9
[2018-07-25 01:20] LABS: APPEARANCE CLEAR (CLEAR); BILIRUBIN NEGATIVE (NEGATIVE); COLOR YELLOW (YELLOW); GLUCOSE NEGATIVE (NEGATIVE); KETONE NEGATIVE (NEGATIVE); NITRITE NEGATIVE (NEGATIVE); PH 5.5 (5.0-6.0); PROTEIN NEGATIVE (NEGATIVE); UROBILINOGEN NORMAL (NORMAL)
[2018-07-25 05:40] LABS: ANION GAP 6.8 mmol/L (8-16); CALCIUM 8.9 mg/dL (8.5-10.1); CREATININE - SERUM 0.9 mg/dL (0.6-1.3)
[2018-07-25 05:54] LABS: MAGNESIUM - SERUM 2.6 mg/dL (1.8-2.4)
[2018-07-25 05:55] LABS: POTASSIUM - SERUM 2.8 mmol/L (3.5-5.1)
--- NOTE | 2018-07-25 07:20 | NUR ---
INITIAL ROUNDING ON THE PATIENT, SHE IS AWAKE AND RESTING IN BED, DRESSED IN HER CLOTHES. PATIENT SHOWS NO S/S OF SOB/DISTRESS. CALL LIGHT IN REACH.
[2018-07-25 08:00] VITALS: BP 125/79
[2018-07-25 08:23] LABS: BASOPHILS 0.1 % (0-2); EOSINOPHILS 3.8 % (0-7); HEMATOCRIT 43.3 % (36.0-48.0); HEMOGLOBIN 14.5 g/dL (12-16); IMMATURE GRANULOCYTES 0.1 % (0-5); LYMPHOCYTES 33.7 % (15-50); MCH 32.2 pg (26.0-34.0); MCHC 33.5 g/dL (31.0-37.0); MCV 96.2 fL (80.0-100.0); NEUTROPHILS 52.3 % (40-80); PLATELET COUNT 299 10x3/uL (130-400); RDW 13.8 % (11.5-14.5)
[2018-07-25 08:24] LABS: WBC 8.1 10x3/uL (4.8-10.8)
--- NOTE | 2018-07-25 08:35 | NUR ---
PATIENT CALLED FROM THE BATHROOM TO ASK FOR HELP. IT WAS DISCOVERED THE PATIENT HAD BEEN INCONT OF VERY LOOSE, WATER LIKE, STOOL. LARGE AMOUNT OF STOOL NOTED ON THE FLOOR, IN THE BED, ON THE COMMODE AND PASTOR OF THE BATHROOM. PATIENT WAS ASSISTED TO CLEAN UP, AND CHANGE CLOTHES, LINENS CHANGED AND HOUSE KEEPING CALLED TO FRESHEN UP THE BATHROOM. PATIENT NOW RESTING IN BED WITH THE LIGHTS OFF.
[2018-07-25 10:54] VITALS: Ht 172.7 cm; Wt 104.5 kg
[2018-07-25 12:00] VITALS: BP 120/72
[2018-07-25 13:08] LABS: ALBUMIN 3.8 g/dL (3.4-5.0); ALKALINE PHOSPHATASE 96 U/L (46-116); ALT (SGPT) 22 U/L (10-68); CALC OSMOLALITY 277 mosm/kg (275-300); CALCIUM 8.6 mg/dL (8.5-10.1); CARBON DIOXIDE 31.9 mmol/L (21.0-32.0); CHLORIDE - SERUM 102 mmol/L (98-107); CREATININE - SERUM 0.8 mg/dL (0.6-1.3); GLUCOSE 120 mg/dL (74-106); POTASSIUM - SERUM 3.4 mmol/L (3.5-5.1); PROTEIN - SERUM 7.1 g/dL (6.4-8.2); SODIUM 140 mmol/L (136-145); UREA NITROGEN 7 mg/dL (7-18); eGFR NON AFRICAN AMERICAN 78 mL/min (90-120)
[2018-07-25 13:26] LABS: UDS - AMPHET NEGATIVE QUAL (NEGATIVE); UDS - BARB POSITIVE QUAL (NEGATIVE); UDS - BENZO NEGATIVE QUAL (NEGATIVE); UDS - COCAINE NEGATIVE QUAL (NEGATIVE); UDS - OPIATE POSITIVE QUAL (NEGATIVE); UDS - PCP NEGATIVE QUAL (NEGATIVE); UDS - THC NEGATIVE QUAL (NEGATIVE)
--- NOTE | 2018-07-26 07:00 | NUR ---
INITIAL ROUNDING, PATIENT IS AWAKE AND RESTING IN BED WITH THE LIGHTS ON. SHE REPORTS PAIN OF 5/10 GENERALIZED, NO SOB NOTED. CALL LIGHT IN REACH
[2018-07-26 08:49] VITALS: BP 134/75
[2018-07-26 09:40] LABS: BASOPHILS 0.1 % (0-2); EOSINOPHILS 0.7 % (0-7); HEMATOCRIT 40.1 % (36.0-48.0); HEMOGLOBIN 13.4 g/dL (12-16); IMMATURE GRANULOCYTES 0.2 % (0-5); LYMPHOCYTES 23.5 % (15-50); MCH 32.6 pg (26.0-34.0); MCHC 33.4 g/dL (31.0-37.0); MCV 97.6 fL (80.0-100.0); MEAN PLATELET VOLUME 10.2 fL (7.4-10.4); MONOCYTES 5.4 % (2-11); NEUTROPHILS 70.1 % (40-80); PLATELET COUNT 272 10x3/uL (130-400); RBC 4.11 10x6/uL (4.00-5.40); RDW 13.9 % (11.5-14.5); WBC 13.6 10x3/uL (4.8-10.8)
[2018-07-26 09:52] LABS: ANION GAP 8.4 mmol/L (8-16); CARBON DIOXIDE 31.9 mmol/L (21.0-32.0); CREATININE - SERUM 0.9 mg/dL (0.6-1.3); MAGNESIUM - SERUM 2.1 mg/dL (1.8-2.4); POTASSIUM - SERUM 3.3 mmol/L (3.5-5.1)
--- NOTE | 2018-07-26 12:09 | MORECARE ---
CASE MANAGEMENT DISCHARGE SUMMARY PATIENT: MELANIE RAI UNIT: [id number] ADM DATE: 07/24/18 AGE: 57 : 56 SEX: F ROOM/BED: D.1209 AUTHOR: IVETH COBB PHYSICIAN: REFERRING PHYSICIAN: JASON KINNEY MD DATE OF SERVICE: 07/26/18 Discharge Plan Patient Name: MELANIE RAI Facility: [facility]:[place] : 1960 Planned Disposition: Home Anticipated Discharge Date: Discharge Date: Expected LOS: Initial Reviewer: [email or web address] Initial Review Date: 07/24/2018 Generated: 07/26/18 1:09 pm DCPIA - Discharge Planning Initial Assessment Updated by [email or web address]: Macie Omer on 07/26/18 12:07 pm * Is the patient Alert and Oriented? Yes * How many steps to enter\exit or inside your home? none * PCP DR Ortiz * Preadmission Environment Home Alone * ADLs Independent * Equipment Nebulizer Oxygen * Other Equipment denies any other DME * List name and contact numbers for known caregivers / representatives who currently or will assist patient after discharge: June [facility]- [phone] * Verbal permission to speak to the caregivers and representatives has been obtained from the patient. No * Community resources currently utilized None * Please name any agencies selected above. N/A * Additional services required to return to the preadmission environment? No * Can the patient safely return to the preadmission environment? Yes * Has this patient been hospitalized within the prior 30 days at any hospital? No Patient Name: MELANIE RAI Page [phone] at 1209 All edits/amendments must be made on the electronic document DICTATION DATE: 07/26/181208 HOGSHEAD HAND: KIRSTEN 07/26/18 1209 RPT#: [id number] DC DATE: STATUS: ADM IN [facility] [address] [place] [address] END OF REPORT
--- NOTE | 2018-07-26 12:24 | MORECARE ---
CASE MANAGEMENT DISCHARGE SUMMARY PATIENT: MELANIE RAI UNIT: [id number] ADM DATE: 07/24/18 AGE: 57 : 56 SEX: F ROOM/BED: D.1209 AUTHOR: REZA,DOC PHYSICIAN: REFERRING PHYSICIAN: JASON KINNEY MD DATE OF SERVICE: 07/26/18 Discharge Plan Patient Name: MELANIE RAI Facility: [facility]:[place] : 1960 Planned Disposition: Home Anticipated Discharge Date: Discharge Date: Expected LOS: Initial Reviewer: [email or web address] Initial Review Date: 07/24/2018 Generated: 07/26/18 1:24 pm Comments DCP- Discharge Planning Updated by [email or web address]: Macie Omer on 07/26/18 11:[address] CM MET WITH THE PATIENT. EXPLAINED MY ROLE AND RECEIVED PERMISSION TO CONTINURE W/ ASSESSMENT. PATIENT FEELS SHE WILL BE DISCHARGED TO HOME TODAY. WILL D/C TO HOME. HAS NO STAIRS OR STEPS TO ENTER. PLANS TO DRIVE HERSELF HOME. STATES SHE HAS A CAR IN THE PARKING LOT. SHE CHANGED HER PERSON TO NOTIFY TO [facility]- [phone]. PATIENT HAS A CANE, STATIONARY OXYGEN AND NEBULIZER AT HOME. SHE WOULD LIKE PORTABILITY OXYGEN. HER PULMONALOGIST IS DR DOBBINS. SHE HAS A BROKEN PIECE ON HER NEBULZIER. I ADVISED I WOULD CALL HER DME PROVIDER, JULIO CESAR. SHE STATES DR DOBBINS IS TAKING CARE OF IT. PCP- DR [facility]- THE ONE NEXT TO DR LOPEZ'S OFFICE. CM EXPLAINED CM WILL FOLLOW TO ASSIST NEEDED. SHE DENIES ANY NEEDS AT THIS TIME. DCPIA - Discharge Planning Initial Assessment Updated by [email or web address]: Macie Omer on 07/26/18 12:07 pm * Is the patient Alert and Oriented? Yes * How many steps to enter\exit or inside your home? none * PCP DR Ortiz * Preadmission Environment Home Alone * ADLs Independent * Equipment Nebulizer Oxygen * Other Equipment denies any other DME * List name and contact numbers for known caregivers / representatives who currently or will assist patient after discharge: June [facility] [phone] * Verbal permission to speak to the caregivers and representatives has been obtained from the patient. No * Community resources currently utilized None * Please name any agencies selected above. N/A * Additional services required to return to the preadmission environment? No * Can the patient safely return to the preadmission environment? Yes * Has this patient been hospitalized within the prior 30 days at any hospital? No Last DP export: 07/26/18 11:09 am Patient Name: MELANIE RAI Page [phone] at 1224 All edits/amendments must be made on the electronic document DICTATION DATE: 07/26/18 1224 GEODETIC SURVEYOR TECHNOLOGIST: KIRSTEN 07/26/18 1224 RPT#: [id number] DC DATE: STATUS: ADM IN [facility] [address] [place] [address] END OF REPORT
[2018-07-26 16:15] VITALS: BP 129/83
--- NOTE | 2018-07-26 20:38 | NUR ---
IV REMOVED IN LEFT HAND CATHETER INTACT. NO BLEEDING. BANDAID APPLIED. WALKING PT TO FRONT ENTRANCE. BELONGINGS TAKEN WITH PT. EDUCATION PAPERS WITH PT. DENIES QUESTIONS.
--- NOTE | 2018-07-27 08:27 | MORECARE ---
CASE MANAGEMENT DISCHARGE SUMMARY PATIENT: MELANIE RAI UNIT: [id number] ADM DATE: 07/24/18 AGE: 57 : 56 SEX: F ROOM/BED: D.1209 AUTHOR: REZA,DOC PHYSICIAN: REFERRING PHYSICIAN: JASON KINNEY MD DATE OF SERVICE: 07/27/18 Discharge Plan Patient Name: MELANIE RAI Facility: [facility]:[place] : 1960 Planned Disposition: Home Anticipated Discharge Date: Discharge Date: 07/26/2018 Expected LOS: Initial Reviewer: [email or web address] Initial Review Date: 07/24/2018 Generated: 07/27/18 9:27 am Comments DCP- Discharge Planning Updated by [email or web address]: Macie Omer on 07/26/18 11:[address] CM MET WITH THE PATIENT. EXPLAINED MY ROLE AND RECEIVED PERMISSION TO CONTINURE W/ ASSESSMENT. PATIENT FEELS SHE WILL BE DISCHARGED TO HOME TODAY. WILL D/C TO HOME. HAS NO STAIRS OR STEPS TO ENTER. PLANS TO DRIVE HERSELF HOME. STATES SHE HAS A CAR IN THE PARKING LOT. SHE CHANGED HER PERSON TO NOTIFY TO [facility]- [phone]. PATIENT HAS A CANE, STATIONARY OXYGEN AND NEBULIZER AT HOME. SHE WOULD LIKE PORTABILITY OXYGEN. HER PULMONALOGIST IS DR DOBBINS. SHE HAS A BROKEN PIECE ON HER NEBULZIER. I ADVISED I WOULD CALL HER DME PROVIDER, JULIO CESAR. SHE STATES DR DOBBINS IS TAKING CARE OF IT. PCP- DR [facility]- THE ONE NEXT TO DR LOPEZ'S OFFICE. CM EXPLAINED CM WILL FOLLOW TO ASSIST NEEDED. SHE DENIES ANY NEEDS AT THIS TIME. DCPIA - Discharge Planning Initial Assessment Updated by [id number]: Macie Omer on 07/26/18 12:07 pm * Is the patient Alert and Oriented? Yes * How many steps to enter\exit or inside your home? none * PCP DR Ortiz * Preadmission Environment Home Alone * ADLs Independent * Equipment Nebulizer Oxygen * Other Equipment denies any other DME * List name and contact numbers for known caregivers / representatives who currently or will assist patient after discharge: June [facility] [phone] * Verbal permission to speak to the caregivers and representatives has been obtained from the patient. No * Community resources currently utilized None * Please name any agencies selected above. N/A * Additional services required to return to the preadmission environment? No * Can the patient safely return to the preadmission environment? Yes * Has this patient been hospitalized within the prior 30 days at any hospital? No Last DP export: 07/26/18 11:24 am Patient Name: MELANIE RAI Page [phone] at 0827 All edits/amendments must be made on the electronic document DICTATION DATE: 07/27/18826 SHELL MACHINE OPERATOR: KIRSTEN 07/27/18826 RPT#: [id number] DC DATE:07/26/18 STATUS: DIS IN [facility] [address] [place] [address] END OF REPORT
== END 2018-07-26 20:38 | disposition home or self-care (01) ==
LOC: D.ER 17:51 → D.M3 20:31 → OBSVTIME 20:31 → D.M3 07-26 20:38
PROVIDERS: Family Medicine; ADMIT Internal Medicine Nephrology; ATTEND Internal Medicine Nephrology
DX: E87.6 Hypokalemia (principal); E83.42 Hypomagnesemia; I10 Essential (primary) hypertension; E78.5 Hyperlipidemia, unspecified; K21.9 Gastro-esophageal reflux disease without esophagitis; J44.9 Chronic obstructive pulmonary disease, unspecified; J96.21 Acute and chronic respiratory failure with hypoxia; E11.9 Type 2 diabetes mellitus without complications; M19.90 Unspecified osteoarthritis, unspecified site; M79.7 Fibromyalgia; F17.213 Nicotine dependence, cigarettes, with withdrawal; Z86.11 Personal history of tuberculosis; Z86.73 Personal history of transient ischemic attack (TIA), and cerebral infarction without residual deficits

== ENCOUNTER → 2018-09-11 18:06 | Outpatient (CLI) | payer MEDICAID ==
[2018-07-25 10:54] VITALS: BMI 33.9
== END | disposition home or self-care (01) ==
LOC: D.LABREF 18:06
PROVIDERS: ATTEND Orthopaedic Surgery
DX: M17.11 Unilateral primary osteoarthritis, right knee (principal)

== ENCOUNTER → 2018-10-25 13:05 | Outpatient (CLI) | payer MEDICAID ==
[2018-07-25 10:54] VITALS: BMI 33.9
== END | disposition home or self-care (01) ==
LOC: D.RT 06-21 11:00 → D.CT 06-21 11:00 → D.RT 06-21 11:45 → D.CT 06-21 12:00 → D.RT 13:00
PROVIDERS: ATTEND Internal Medicine Pulmonary Disease
DX: J84.9 Interstitial pulmonary disease, unspecified (principal)

== ENCOUNTER → 2018-12-17 17:24 | Outpatient (CLI) | payer MEDICAID ==
[2018-07-25 10:54] VITALS: BMI 33.9
[~2018-12-17 17:24] MED LIST changes: +ASPIRIN325 MG PO; +LEVAQUIN750 MG PO
== END | disposition home or self-care (01) ==
LOC: D.LABREF 17:24
PROVIDERS: ATTEND Orthopaedic Surgery
DX: M16.11 Unilateral primary osteoarthritis, right hip (principal)

== ENCOUNTER 2018-12-20 12:35 | Inpatient (IN) | payer MEDICAID ==
[~2018-12-20] VITALS: Ht 170.2 cm; Wt 107.0 kg
[~2018-12-20 12:35] MED LIST changes: -ASPIRIN325 MG PO; -LEVAQUIN750 MG PO
[2018-12-26 12:02] LABS: BASOPHILS 0.1 % (0-2); EOSINOPHILS 1.9 % (0-7); HEMATOCRIT 42.1 % (36.0-48.0); HEMOGLOBIN 14.1 g/dL (12-16); IMMATURE GRANULOCYTES 0.2 % (0-5); LYMPHOCYTES 43.9 % (15-50); MCH 32.7 pg (26.0-34.0); MCHC 33.5 g/dL (31.0-37.0); MCV 97.7 fL (80.0-100.0); MEAN PLATELET VOLUME 9.7 fL (7.4-10.4); MONOCYTES 10.4 % (2-11); NEUTROPHILS 43.5 % (40-80); RBC 4.31 10x6/uL (4.00-5.40); RDW 14.1 % (11.5-14.5); WBC 8.8 10x3/uL (4.8-10.8)
[2018-12-26 12:10] LABS: PLATELET COUNT 341 10x3/uL (130-400)
[2018-12-26 12:15] LABS: ANION GAP 7.9 mmol/L (8-16); CALCIUM 8.8 mg/dL (8.5-10.1); CARBON DIOXIDE 35.1 mmol/L (21.0-32.0)
[2018-12-26 12:39] LABS: APTT 33.6 SECONDS (22.8-39.4)
[2018-12-26 12:40] LABS: INR 0.94 (0.85-1.17); PROTIME 12.1 SECONDS (11.6-15.0)
[2019-01-02] VITALS (12 sets, daily range): BP systolic 107–148; BP diastolic 49–97; BMI 36.9; BMI 37.0
[2019-01-02 07:10] LABS: APPEARANCE CLEAR (CLEAR); BILIRUBIN NEGATIVE (NEGATIVE); COLOR YELLOW (YELLOW); GLUCOSE NEGATIVE (NEGATIVE); KETONE NEGATIVE (NEGATIVE); NITRITE NEGATIVE (NEGATIVE); PROTEIN NEGATIVE (NEGATIVE); UROBILINOGEN NORMAL (NORMAL)
--- NOTE | 2019-01-02 08:17 | NUR ---
PREPPED FROM TOURNIQUET TO TOES CIRCUMFERENTIALLY WITH HIBICLENS AND ALCOHOL. DRIED WITH TOWEL THEN PREPPED WITH CHLORAPREP. LAMINAR FLOW NOT IN USE TRAFFIC MONITORED IN AND OUT OF ROOM AND KEPT TO A MINIMUM
--- NOTE | 2019-01-02 10:34 | NUR ---
MEETS ANESTHESIA DISCHARGE CRITERIA
--- NOTE | 2019-01-02 11:29 | NUR ---
DAUGHTER JUNE IN ROOM. ISS SPIROMETER GIVEN AND PATIENT DEMONSTRATED IT. SCD AND PLEXI ON PATIENT. CL IN REACH. WATER PROVIDED. WCTM
--- NOTE | 2019-01-02 13:43 | NUR ---
JUNE (DAUGHTER) LEFT TO GO TO WORK. PATIENT STATES, "PAIN IS TOLERABLE RIGHT NOW." CL IN REACH. ANSWERED ROOM PHONE I WAS EXITING. WCTM
--- NOTE | 2019-01-02 15:12 | NUR ---
PATIENT RESTING. CL IN REACH. NO FURTHER NEEDS AT THIS TIME.
--- NOTE | 2019-01-02 19:30 | NUR ---
A&O X 4. CPM TO RIGHT LEFT IN USE, DRESSING C/D/I. REPORTS PAIN OF 6/10. WET COUGH HEARD, DENIES PRODUCTIVITY. 3L O2 IN USE. DENIES NEEDS AT THIS TIME, WILL CONTINUE TO MONITOR.
[2019-01-03 04:00] VITALS: BP 140/85
--- NOTE | 2019-01-03 04:23 | NUR ---
I have reviewed this patient and I concur with the Shift Assessment completed by the Licensed Practical Nurse today this shift.
[2019-01-03 05:12] LABS: BASOPHILS 0 % (0-2); EOSINOPHILS 0 % (0-7); HEMATOCRIT 38.5 % (36.0-48.0); HEMOGLOBIN 12.3 g/dL (12-16); IMMATURE GRANULOCYTES 0.2 % (0-5); LYMPHOCYTES 18.7 % (15-50); MCH 31.7 pg (26.0-34.0); MCHC 31.9 g/dL (31.0-37.0); MCV 99.2 fL (80.0-100.0); MEAN PLATELET VOLUME 10.7 fL (7.4-10.4); MONOCYTES 12.6 % (2-11); NEUTROPHILS 68.5 % (40-80); RBC 3.88 10x6/uL (4.00-5.40); RDW 14.6 % (11.5-14.5); WBC 16.1 10x3/uL (4.8-10.8)
[2019-01-03 05:45] LABS: PLATELET COUNT 243 10x3/uL (130-400)
[2019-01-03 05:51] LABS: CALC OSMOLALITY 281 mosm/kg (275-300); CALCIUM 8.3 mg/dL (8.5-10.1); CARBON DIOXIDE 30.2 mmol/L (21.0-32.0); CHLORIDE - SERUM 102 mmol/L (98-107); CREATININE - SERUM 1.1 mg/dL (0.6-1.3); GLUCOSE 107 mg/dL (74-106); SODIUM 142 mmol/L (136-145); UREA NITROGEN 10 mg/dL (7-18); eGFR NON AFRICAN AMERICAN 54 mL/min (90-120)
[2019-01-03 09:48] VITALS: BP 160/87
--- NOTE | 2019-01-03 09:54 | NUR ---
PATIENT RESTING ON LEFT SIDE. NO NEEDS AT THIS TIME. CL IN REACH. WCTM
--- NOTE | 2019-01-03 10:32 | NUR ---
SHANE REMOVED. 1100 ML REMOVED FROM SHANE. 9 ML OF FLUID REMOVED FROM THE BALLOON. TOLERATED WELL. CL IN REACH. PT TO WORK WITH HER.
[2019-01-03 12:29] VITALS: BP 134/89
[2019-01-03 12:52] VITALS: Ht 170.2 cm; Wt 107.0 kg
--- NOTE | 2019-01-03 14:32 | NUR ---
PATIENT HAS BEDSIDE COMMODE IN ROOM. TOLD HER NOT TO GET UP WITHOUT ASSISTANCE. SHE VOICED UNDERSTANDING. PAIN PILL REQUESTED AND PROVIDED. NEW TIME SHE WILL HAVE A PAIN PILL AVAILABLE ON COMMUNICATION BOARD. CL IN REACH. PHONE IN REACH. PURSE IN REACH. WCTM LAYING ON LEFT SIDE.
[2019-01-03 16:23] VITALS: BP 143/83
[2019-01-03 20:00] VITALS: BP 138/81
--- NOTE | 2019-01-03 22:11 | NUR ---
PT OBSERVED TRYING TO GET OUT OF BED TO, "GO TO THE KITCHEN." REORIENTATION TO PLACE TIME AND SITUATION. PT ASKED, "SO ISN'T HERE?" INFORMED PT THAT HE WASN'T, BUT SHE COULD CALL HIM. PT STATED IS . PT IS REORIENTED AT THIS MOMENT. WILL MONITOR CLOSELY.
--- NOTE | 2019-01-04 02:43 | NUR ---
I have reviewed this patient and I concur with the Shift Assessment completed by the Licensed Practical Nurse today this shift.
[2019-01-04 05:55] LABS: BASOPHILS 0.1 % (0-2); EOSINOPHILS 0.1 % (0-7); HEMATOCRIT 37.6 % (36.0-48.0); HEMOGLOBIN 12.4 g/dL (12-16); IMMATURE GRANULOCYTES 0.2 % (0-5); LYMPHOCYTES 18.2 % (15-50); MCH 32.2 pg (26.0-34.0); MCV 97.7 fL (80.0-100.0); MEAN PLATELET VOLUME 11.3 fL (7.4-10.4); MONOCYTES 15.9 % (2-11); NEUTROPHILS 65.5 % (40-80); PLATELET COUNT 223 10x3/uL (130-400); RBC 3.85 10x6/uL (4.00-5.40); RDW 14.5 % (11.5-14.5); WBC 15.2 10x3/uL (4.8-10.8)
[2019-01-04 08:35] VITALS: BP 157/99
[2019-01-04 10:18] LABS: ALBUMIN 3.3 g/dL (3.4-5.0); ANION GAP 7.5 mmol/L (8-16); BILIRUBIN - TOTAL 0.72 mg/dL (0.2-1.3); CALCIUM 8.8 mg/dL (8.5-10.1); CARBON DIOXIDE 32.6 mmol/L (21.0-32.0); CREATININE - SERUM 1.1 mg/dL (0.6-1.3); POTASSIUM - SERUM 3.1 mmol/L (3.5-5.1); PROTEIN - SERUM 6.9 g/dL (6.4-8.2)
[2019-01-04 13:14] VITALS: BP 153/83
--- NOTE | 2019-01-04 14:22 | NUR ---
TARIQ ZOILA FOUND PATIENT IN ROOM WITH A BOTTLE OF QUETIAPINE FUMARATE THAT IS NOT EVEN IN THE PATIENTS NAME. NOTIFIED KRISTIN THE DAUGHTER. PINO PUENTE RN AND I WENT TO SEE WHAT OTHER MEDICATIONS COULD BE IN THAT ROOM. WE FOUND PHENAZOPYRIDINE HCL 97.5 MG WITH 6 PILLS IN IT. MONTELUKASTS 10 MG WITH NOTHING IN THE BOTTLE. LORAZEPAM 1 MG WITH 12 IN THE BOTTLE. CLONAZEPAM 1MG WITH 3 IN THE BOTTLE. HYDROCO/APAP 10/325 MG WITH 39 IN THE BOTTLE. QUETIAPINE FUMARATE 25 MG WITH 57 IN THE BOTTLE. BUT/APA (UNREADABLE) WITH 6 IN THE BOTTLE. NEOMYCIN AND POLYMYXIN B EYE DROPS 1 BOTTLE. ALL MEDS COUNTED WITH PINO PUENTE RN AND MYSELF. SEALED AND DELIVERED TO PHARMACY VIA SELF.
[2019-01-04 16:31] VITALS: BP 106/85
[2019-01-04 19:44] VITALS: BP 140/77
--- NOTE | 2019-01-04 21:00 | NUR ---
PT AWAKENS UPON VERBAL STIMULATION. ORIENTED TO SLEF, REORIENTED TO PLACE, TIME, AND SITUATION. REPORTS PAIN IN RLE. INCONTINENT OF BLADDER, TRANSFERRED TO CHAIR, PT DISPLAYS MODERATE WEAKNESS AND DIFFICULTY AMBULATING. LINENS CHANGED, PT CLEANED UP, MINIMAL ASSIST.TRANSFERRED TO BED, ARMANDO ALARM IN USE, DENIES FURTHER NEEDS, WILL CONTINUE TO MONITORE.
--- NOTE | 2019-01-05 01:15 | NUR ---
I have reviewed this patient and I concur with the Shift Assessment completed by the Licensed Practical Nurse today this shift.
[2019-01-05 05:25] VITALS: BP 123/59
[2019-01-05 06:53] LABS: BASOPHILS 0.1 % (0-2); EOSINOPHILS 0.5 % (0-7); HEMATOCRIT 37.3 % (36.0-48.0); HEMOGLOBIN 12.4 g/dL (12-16); IMMATURE GRANULOCYTES 0.3 % (0-5); MCH 32.5 pg (26.0-34.0); MCHC 33.2 g/dL (31.0-37.0); MCV 97.6 fL (80.0-100.0); MEAN PLATELET VOLUME 11.7 fL (7.4-10.4); NEUTROPHILS 60.1 % (40-80); PLATELET COUNT 214 10x3/uL (130-400); RBC 3.82 10x6/uL (4.00-5.40); RDW 14.4 % (11.5-14.5); WBC 12.3 10x3/uL (4.8-10.8)
[2019-01-05 07:12] LABS: ALBUMIN 2.9 g/dL (3.4-5.0); ANION GAP 10.7 mmol/L (8-16); BILIRUBIN - TOTAL 1.18 mg/dL (0.2-1.3); CALCIUM 8.8 mg/dL (8.5-10.1); CARBON DIOXIDE 28.6 mmol/L (21.0-32.0); CREATININE - SERUM 0.9 mg/dL (0.6-1.3); POTASSIUM - SERUM 3.3 mmol/L (3.5-5.1); PROTEIN - SERUM 6.3 g/dL (6.4-8.2)
--- NOTE | 2019-01-05 07:33 | NUR ---
PT IS RESTING IN BED WITH EYES OPEN. RESPIRATIONS ARE EVEN AND UNLABORED. PT IS AAO X 4. PT REPORTS PAIN TO RIGHT KNEE 08/27. WILL ADDRESS. DRESSING TO RIGHT KNEE IS CDI. WOUND VAC NOTED TO RIGHT KNEE. PT REPORTS FEELING TO RLE DESCRIBED PAIN WITH TOUCH PT REPORTS THAT SHE HAS NEUROPATHY. PEDAL PULSE PALP. O2 VIA NC @ 2L HUMIDIFIED. ARMANDO ALARM IS ON AND WORKING. CPM MACHINE NOT ON. PT IS REFUSING CPM AT THIS TIME. WILL ATTEMPT TO PLACE CPM AT LATER TIME. BED IS IN THE LOWEST POSITION. CALL LIGHT AND BEDSIDE TABLE ARE WITHIN REACH. SIDE RAILS X 2. PT DENIES FURTHER NEEDS. WILL CONT TO MONITOR.
[2019-01-05 08:40] VITALS: BP 121/78
[2019-01-05 10:43] LABS: APPEARANCE CLEAR (CLEAR); BILIRUBIN NEGATIVE (NEGATIVE); COLOR YELLOW (YELLOW); GLUCOSE NEGATIVE (NEGATIVE); KETONE NEGATIVE (NEGATIVE); NITRITE NEGATIVE (NEGATIVE); PROTEIN NEGATIVE (NEGATIVE); UROBILINOGEN NORMAL (NORMAL)
[2019-01-05 15:04] VITALS: BP 122/69
[2019-01-05 19:00] VITALS: BP 101/70
--- NOTE | 2019-01-05 19:35 | NUR ---
LYING IN BED. ALERT AND ORIENTED X4. CPM ON RLE. DRSG TO RLE IS C/D/I WITH PUJA WRAP AND PROVENA WOUND VAC NOTED WITH NO DRAINAGE. O3 @ 3L/NC. RESP NONLABORED. NONPROD COUGH. ENCOURAGED USE OF I.S AND OBSERVED PT USING THIS. RATES PAIN IN RT KNEE 9. MEDICATED WITH NORCO ORDERED. TELEMETRY SHOWS SR WITH RATE OF 90. SALINE LOCK NOTED TO LT HAND. PEDAL PULSES WEAK BILAT. ARMANDO ALARM ON. SR ELEVATED X2. CL IN REACH.
--- NOTE | 2019-01-05 20:25 | NUR ---
IV IN LT HAND FLUSHED AND LEAKED. IV CATH REMOVED AT THIS TIME.
--- NOTE | 2019-01-05 21:07 | NUR ---
IV RESTARTED WITH 22G IN LT FOREARM. PT CEDRICK WELL.
[2019-01-06] VITALS (7 sets, daily range): BP systolic 117–141; BP diastolic 69–88
--- NOTE | 2019-01-06 01:55 | NUR ---
MEDICATED FOR C/O PAIN IN RT KNEE WITH NORCO. CL IN REACH.
[2019-01-06 05:38] LABS: BASOPHILS 0.1 % (0-2); EOSINOPHILS 2.2 % (0-7); HEMATOCRIT 34.2 % (36.0-48.0); HEMOGLOBIN 11.2 g/dL (12-16); IMMATURE GRANULOCYTES 0.4 % (0-5); LYMPHOCYTES 24.8 % (15-50); MCH 31.8 pg (26.0-34.0); MCHC 32.7 g/dL (31.0-37.0); MCV 97.2 fL (80.0-100.0); MEAN PLATELET VOLUME 10.8 fL (7.4-10.4); MONOCYTES 14.7 % (2-11); NEUTROPHILS 57.8 % (40-80); PLATELET COUNT 248 10x3/uL (130-400); RBC 3.52 10x6/uL (4.00-5.40); WBC 11.1 10x3/uL (4.8-10.8)
[2019-01-06 05:59] LABS: ALBUMIN 2.5 g/dL (3.4-5.0); ANION GAP 11.9 mmol/L (8-16); BILIRUBIN - TOTAL 0.93 mg/dL (0.2-1.3); CALCIUM 8.8 mg/dL (8.5-10.1); CARBON DIOXIDE 25.8 mmol/L (21.0-32.0); CREATININE - SERUM 0.9 mg/dL (0.6-1.3); POTASSIUM - SERUM 3.7 mmol/L (3.5-5.1); PROTEIN - SERUM 6.8 g/dL (6.4-8.2)
--- NOTE | 2019-01-06 07:35 | NUR ---
PT RESTING IN BED WITH WITH EYES OPEN, CURRENTLY ON CPM MACHINE, ALERT AND ORIENTED. IV LOCATED TO LEFT FOREARM CURRENTLY SL. CURRENTLY RCVING 3L VIA NC. NO S/S OF DISTRESS AT THIS TIME, DENIES NEEDS, WILL CONT TO MONITOR.
--- NOTE | 2019-01-06 11:49 | NUR ---
AFTER COMING OFF OF THE CPM MACHINE THIS MORNING PT HAD PT UP ON SIDE OF BED AND REPORTED REDNESS AND SWELLING TO RIGHT FOOT. USED DOPPLER TO CHECK FOR PULSE, IT WAS PRESENT. UPON PROPPING FOOT UP ON PILLOW REDNESS WENT AWAY. REPORTED MY FINDINGS TO [facility] WHO INSTRUCTED ME TO LET SURGERY KNOW WHEN THEY MADE THERE ROUNDS. [facility] IS CURRENTLY ON THE FLOOR AND HAS BEEN NOTIFIED. WILL CONT TO MONITOR.
--- NOTE | 2019-01-06 21:27 | NUR ---
patient daughter augusta called and ask if we could call the hospitalist to give her something to help her sleep that she called her and she has not been able to sleep for several days, a week. Educated that she was just given her klonopin 0.5mg and a tylenol 325 for pain untill she could have her norco at just after 1999. Augusta then stated well i work at the other hospital and we just call the hospitalist and get a order. Educated her that patient was found few days ago on the with multable botles of narcotics and was over stated and very confused. Augusta stated I remember very well, the educated her that alisha had a norco at about 2200 for her pain if needed. and if that did not help we would see what could be done.
--- NOTE | 2019-01-06 21:58 | NUR ---
patient in bed resting O2 at 3l via N/C. IV to left FA. she is post op day 4 of right total knee. leg is swolen with redness noted , has bed noted by MD. see notes. alessandro in place and on. c/o leg pain gave tylenol and educated her when next dose of norco was due, she stated good i can slep then. call light and water in reach, bed low.stated no other needs.
--- NOTE | 2019-01-06 23:11 | NUR ---
SLEEPING EYES CLOSED RESPRATIONS EVEN AND UNLABORED, CALL LIGHT IN REACH.
[2019-01-07] VITALS: BP 120/61
[2019-01-07 04:00] VITALS: BP 136/90
[2019-01-07 05:28] LABS: ALBUMIN 2.7 g/dL (3.4-5.0); ANION GAP 11.3 mmol/L (8-16); BILIRUBIN - TOTAL 0.9 mg/dL (0.2-1.3); CALCIUM 9.2 mg/dL (8.5-10.1); CARBON DIOXIDE 28.6 mmol/L (21.0-32.0); CREATININE - SERUM 0.9 mg/dL (0.6-1.3); POTASSIUM - SERUM 3.9 mmol/L (3.5-5.1)
[2019-01-07 06:07] LABS: BASOPHILS 0.1 % (0-2); EOSINOPHILS 4.4 % (0-7); HEMATOCRIT 34.9 % (36.0-48.0); HEMOGLOBIN 11.9 g/dL (12-16); IMMATURE GRANULOCYTES 0.2 % (0-5); LYMPHOCYTES 26.9 % (15-50); MCHC 34.1 g/dL (31.0-37.0); MCV 96.7 fL (80.0-100.0); MEAN PLATELET VOLUME 11.1 fL (7.4-10.4); MONOCYTES 16.6 % (2-11); NEUTROPHILS 51.8 % (40-80); PLATELET COUNT 286 10x3/uL (130-400); RBC 3.61 10x6/uL (4.00-5.40); RDW 13.8 % (11.5-14.5); WBC 9.8 10x3/uL (4.8-10.8)
--- NOTE | 2019-01-07 08:16 | NUR ---
AWAKE AND ALERT. ORIENTED X3. C/O PAIN TO RIGHT KNEE THIS AM. WILL MONITOR. LUNGS ARE CLEAR BILATERALLY. NO COUGH NOTED.SKIN IS INTACT WTIHOUT REDNESS EXCEPT INCISION TO RIGHT KNEE WHICH IS CLEAN AND DRY IWTH PROVENA IN PLACE WITH NO DRAINAGE. SL TO LEFT FOREARM IS PATENT WITHOUT REDNESS AT INSERTION SITE. DENIES NEEDS.
--- NOTE | 2019-01-07 08:33 | NUR ---
REQUESTED AND GIVEN ONE HYDROCODONE PO FOR C/O RIGHT KNEE PAIN LEVEL 8. WILL MONITOR.
[2019-01-07 08:36] VITALS: BP 140/77
--- NOTE | 2019-01-07 11:00 | NUR ---
AMBULATED 250 FEET WITH PT USING RW. NO C/O AT THIS TIME.
--- NOTE | 2019-01-07 12:12 | NUR ---
REHAB PRESCREENING Rehab referral received and chart reviewed. On 01/05 patient ambulated 200 feet with PT. 01/06 PT put patient on hold. OT evaluation is pending. This patient has a managed care insurance provider which will require a prior authorization. It is unlikely she will be approved. Spoke with Helen in case management. Thank you for this referral! Kisha Salazar, SR RISK MANAGEMENT CONSULTANT Rehab [facility]
[2019-01-07 12:48] VITALS: BP 120/78
[2019-01-07 16:30] VITALS: BP 111/78
--- NOTE | 2019-01-07 18:41 | NUR ---
ATE MOST OF SUPPER TRAY. DENIES NEEDS. NO CHANGES NOTED.
--- NOTE | 2019-01-07 19:20 | NUR ---
PATIENT LYING IN BED ON CPM. PATIENT STATES HER PAIN IS A 7 OUT OF 10 AND SAYS SHE WOULD LIKE PAIN MEDICINE SOON POSSIBLE. LET PATIENT KNOW THAT I WOULD CHECK ON HER PAIN MEDICINE. ENCOURAGED PATIENT TO CALL WITH ANY OTHER NEEDS. BED IN LOW POSITION. CALL LIGHT AND BEDSIDE TABLE WITHIN REACH.
[2019-01-07 20:00] VITALS: BP 129/76
[2019-01-08] VITALS: BP 120/77
[2019-01-08 04:00] VITALS: BP 123/72
[2019-01-08 06:05] LABS: BASOPHILS 0.2 % (0-2); EOSINOPHILS 5.5 % (0-7); HEMATOCRIT 35.8 % (36.0-48.0); HEMOGLOBIN 11.6 g/dL (12-16); IMMATURE GRANULOCYTES 0.2 % (0-5); LYMPHOCYTES 24.4 % (15-50); MCH 31.8 pg (26.0-34.0); MCHC 32.4 g/dL (31.0-37.0); MCV 98.1 fL (80.0-100.0); MEAN PLATELET VOLUME 10.4 fL (7.4-10.4); MONOCYTES 16.3 % (2-11); NEUTROPHILS 53.4 % (40-80); PLATELET COUNT 301 10x3/uL (130-400); RBC 3.65 10x6/uL (4.00-5.40); WBC 9.5 10x3/uL (4.8-10.8)
[2019-01-08 06:34] LABS: ALBUMIN 2.6 g/dL (3.4-5.0); ANION GAP 9.7 mmol/L (8-16); BILIRUBIN - TOTAL 0.64 mg/dL (0.2-1.3); CALCIUM 9.3 mg/dL (8.5-10.1); CARBON DIOXIDE 29.9 mmol/L (21.0-32.0); CREATININE - SERUM 0.9 mg/dL (0.6-1.3); POTASSIUM - SERUM 3.6 mmol/L (3.5-5.1); PROTEIN - SERUM 6.9 g/dL (6.4-8.2)
[2019-01-08 09:04] VITALS: BP 124/76
--- NOTE | 2019-01-08 10:21 | NUR ---
PT ALERT X 4. BREATH SOUNDS DIMINISHED TO LOWER LOBES, 3L O2 PER NC. IV TO LEFT FOREARM, SALINE LOCKED. PT REPORTING PAIN OF 9/10, WILL MONITOR. PT SITTING UP IN CHAIR. BED LOW, CALL LIGHT IN REACH. NO OTHER NEEDS AT THIS TIME.
--- NOTE | 2019-01-08 11:19 | MORECARE ---
CASE MANAGEMENT DISCHARGE SUMMARY PATIENT: MELANIE RAI UNIT: [id number] ADM DATE: 01/02/19 AGE: 58 : 56 SEX: F ROOM/BED: D.2206 AUTHOR: IVETH COBB PHYSICIAN: REFERRING PHYSICIAN: GREGORY DICKSON MD DATE OF SERVICE: 01/08/19 Discharge Plan Patient Name: MELANIE RAI Facility: [facility]:[place] : 1960 Planned Disposition: Home with Home Health Anticipated Discharge Date: Discharge Date: Expected LOS: Initial Reviewer: [email or web address] Initial Review Date: 01/02/2019 Generated: 01/08/19 12:19 pm Comments DCP- Discharge Planning Updated by [id number]: Kelsey Capellan on 01/08/19 10:[address] MET WITH PATIENT THIS AM TO ASSESS DC PLANNING. SHE IS WALKING 250 FT AND FEELS SAFE TO DC HOME. SHE WOULD LIKE [facility], [facility]. SHE STATED THAT SHE HAS HOME O2 THAT SHE WEARS AT NIGHT AND A NEBULIZER FROM [facility] [place]. SHE HAS HAS A 3 IN 1 BEDSIDE COMMODE AND WALKER AT BEDSIDE. [facility] WILL DELIVER HER CPM TO HER HOME [place]. SHE STATED THAT HER DAUGHTER WILL BE HER ASSOCIATE TEACHER HOME AND WILL BE ABLE TO STAY WITH HER A LITTLE BIT FOR THE FIRST WEEK OR SO WHILE SHE RECOVERS. SHE ALSO STATES THAT SHE HAS A NEIGHBOR WHO CHECKS ON HER OFTEN. I WILL TRY TO GET HER THE SHOWER CHAIR THAT SHE IS REQUESTING. CM TILL CONTINUE TO FOLLOW AND ASSIST NEEDED DCP- Discharge Planning Updated by [id number]: Mulu Maia on 01/06/19 6:[address] CM met with patient and daughter, June regarding dc plans. CM explained the purpose of interview and patient gives permission to continue with her daughter present. The patient lives alone with her poodle. Per the patient's report, her mother 2 weeks ago. PCP: Dr. Ortiz. Pharmacy: [facility] on [address]. DME: Walker, cane. States she has a w/c for use if needed. Denies stairs into or in the home. Patient does not have an emergency call button. Patient denies having falls in the home. Emergency contact: June Saran #[phone]. CM discussed benefits of HHS, Inpatient Rehab, Out-patient rehab. Patient states she would not go into a Nursing/Rehab, but [facility]. Patient reports that she is still having a high level of pain s/p TKA. Patient's daughter voices that her mother may use too much pain medication at home. Patient request a SHOWER BENCH with an extended seat be ordered for home use. Patient is in agreement to inpatient Rehab prior to going home. CM will follow for DC needs PRN. DCP- Discharge Planning Updated by [email or web address]: Kelsey Capellan on 01/04/19 4:[address] Wilfred with [facility] (ortho DME) stated that he is only delivering a CPM and asked if I could get a BSC and walker from another DME. I sent an order to [facility] and spoke with Germania. She was going to have a walker and BSC be delivered to the hospital today if the patient discharged over the weekend. [facility] [phone] [facility] [phone] DCPIA - Discharge Planning Initial Assessment Updated by [id number]: Kelsey Capellan on 01/08/19 11:14 am * Is the patient Alert and Oriented? Yes * How many steps to enter\exit or inside your home? * PCP ORTIZ * Pharmacy [facility] * Preadmission Environment Home Alone * ADLs Independent * Equipment Bedside Commode Nebulizer Oxygen Rolling Walker * List name and contact numbers for known caregivers / representatives who currently or will assist patient after discharge: JUNE (DAUGHTER) [phone] * Verbal permission to speak to the caregivers and representatives has been obtained from the patient. N/A * Community resources currently utilized None * Additional services required to return to the preadmission environment? Yes * Can the patient safely return to the preadmission environment? Yes * Has this patient been hospitalized within the prior 30 days at any hospital? No External Providers External Provider: [facility] Next Contact Date: Service Request Date: Service Type: Resolution: Reviewer: Comments: Coverage Notice Reviewer: [id number] - Kelsey Capellan Notice Issued Date-Time: 01/08/2019 9:30 Notice Type: Patient Choice Letter Notice Delivered To: Patient Relationship to Patient: Warp Clamper Name: Delivery Method: HAND - Hand Delivered Noreen Days: Prior Verbal Notification: Recipient Understood Notice: Yes Recipient Signature: Yes Med Rec Note Co-signed by Attending: Coverage Notice Comment: [facility] Patient Name: MELANIE RAI Page [phone] at 1119 All edits/amendments must be made on the electronic document DICTATION DATE: 01/08/191118 FRONT OFFICE COORDINATOR: KIRSTEN 01/08/19 111 RPT#: [id number] DC DATE: STATUS: ADM IN [facility] [address] [place] [address] END OF REPORT
--- NOTE | 2019-01-08 12:22 | NUR ---
Nutrition follow-UP: Diet: REgular PO intake ~60% average of meals Labs reviewed Wt: 236# Possible d/c soon RDN following.
[2019-01-08 12:24] VITALS: BP 132/75
[2019-01-08] MEDS ORDERED: LEVAQUIN750 MG PO (13:30)
--- NOTE | 2019-01-08 14:28 | MORECARE ---
CASE MANAGEMENT DISCHARGE SUMMARY PATIENT: MELANIE RAI UNIT: [id number] ADM DATE: 01/02/19 AGE: 58 : 56 SEX: F ROOM/BED: D.2201 AUTHOR: IVETH COBB PHYSICIAN: REFERRING PHYSICIAN: GREGORY DICKSON MD DATE OF SERVICE: 01/08/19 Discharge Plan Patient Name: MELANIE RAI Facility: [facility]:[place] : 1960 Planned Disposition: Home with Home Health Anticipated Discharge Date: Discharge Date: Expected LOS: Initial Reviewer: [email or web address] Initial Review Date: 01/02/2019 Generated: 01/08/19 3:28 pm Comments DCP- Discharge Planning Updated by [id number]: Kelsey Capellan on 01/08/19 1:[address] [facility]FERRAL SENT TO [facility] DCP- Discharge Planning Updated by [id number]: Kelsey Capellan on 01/08/19 10:[address] MET WITH PATIENT THIS AM TO ASSESS DC PLANNING. SHE IS WALKING 250 FT AND FEELS SAFE TO DC HOME. SHE WOULD LIKE [facility], [facility] WITH ALICE. SHE STATED THAT SHE HAS HOME O2 THAT SHE WEARS AT NIGHT AND A NEBULIZER FROM [facility]. SHE HAS HAS A 3 IN 1 BEDSIDE COMMODE AND WALKER AT BEDSIDE. [facility] WILL DELIVER HER CPM TO HER HOME [place]. SHE STATED THAT HER DAUGHTER WILL BE HER RADIATION SAFETY OFFICER HOME AND WILL BE ABLE TO STAY WITH HER A LITTLE BIT FOR THE FIRST WEEK OR SO WHILE SHE RECOVERS. SHE ALSO STATES THAT SHE HAS A NEIGHBOR WHO CHECKS ON HER OFTEN. I WILL TRY TO GET HER THE SHOWER CHAIR THAT SHE IS REQUESTING. CM TILL CONTINUE TO FOLLOW AND ASSIST NEEDED DCP- Discharge Planning Updated by [id number]: Mulu Tysonlroy on 01/06/19 6:[address] CM met with patient and daughter, June regarding dc plans. CM explained the purpose of interview and patient gives permission to continue with her daughter present. The patient lives alone with her poodle. Per the patient's report, her mother 2 weeks ago. PCP: Dr. Ortiz. Pharmacy: [facility] on [address] [address]. DME: Walker, cane. States she has a w/c for use if needed. Denies stairs into or in the home. Patient does not have an emergency call button. Patient denies having falls in the home. Emergency contact: June Saran #[phone]. CM discussed benefits of HHS, Inpatient Rehab, Out-patient rehab. Patient states she would not go into a Nursing/Rehab, but In-patient rehab here at or [facility] would be ok. Patient reports that she is still having a high level of pain s/p TKA. Patient's daughter voices that her mother may use too much pain medication at home. Patient request a SHOWER BENCH with an extended seat be ordered for home use. Patient is in agreement to inpatient Rehab prior to going home. CM will follow for DC needs PRN. DCP- Discharge Planning Updated by [email or web address]: Kelsey Capellan on 01/04/19 4:[address] Wilfred with [facility] ([facility]) stated that he is only delivering a CPM and asked if I could get a BSC and walker from another DME. I sent an order to [facility] and spoke with Germania. She was going to have a walker and BSC be delivered to the hospital today if the patient discharged over the weekend. [facility] [phone] [facility] [phone] DCPIA - Discharge Planning Initial Assessment Updated by [email or web address]: Kelsey Capellan on 01/08/19 11:14 am * Is the patient Alert and Oriented? Yes * How many steps to enter\exit or inside your home? * PCP ORTIZ * Pharmacy [facility] * Preadmission Environment Home Alone * ADLs Independent * Equipment Bedside Commode Nebulizer Oxygen Rolling Walker * List name and contact numbers for known caregivers / representatives who currently or will assist patient after discharge: JUNE (DAUGHTER) [phone] * Verbal permission to speak to the caregivers and representatives has been obtained from the patient. N/A * Community resources currently utilized None * Additional services required to return to the preadmission environment? Yes * Can the patient safely return to the preadmission environment? Yes * Has this patient been hospitalized within the prior 30 days at any hospital? No External Providers External Provider: [facility] Next Contact Date: Service Request Date: Service Type: Resolution: Reviewer: Comments: Coverage Notice Reviewer: [id number] - Kelsey Capellan Notice Issued Date-Time: 01/08/2019 9:30 Notice Type: Patient Choice Letter Notice Delivered To: Patient Relationship to Patient: Division Chief Name: Delivery Method: HAND - Hand Delivered Noreen Days: Prior Verbal Notification: Recipient Understood Notice: Yes Recipient Signature: Yes Med Rec Note Co-signed by Attending: Coverage Notice Comment: [facility] Last DP export: 01/08/19 10:19 Patient Name: MELANIE RAI Page [id number] at 1428 All edits/amendments must be made on the electronic document DICTATION DATE: 01/08/191427 CELL STRIPPER FINAL: KIRSTEN 01/08/191427 RPT#: [id number] DC DATE: STATUS: ADM IN [facility] [address] [place] [address] END OF REPORT
[2019-01-08] MEDS ORDERED: ASPIRIN325 MG PO (15:57)
--- NOTE | 2019-01-08 16:04 | MORECARE ---
CASE MANAGEMENT DISCHARGE SUMMARY PATIENT: MELANIE RAI UNIT: [id number] ADM DATE: 01/02/19 AGE: 58 : 56 SEX: F ROOM/BED: D.2201 AUTHOR: IVETH COBB PHYSICIAN: REFERRING PHYSICIAN: GREGORY DICKSON MD DATE OF SERVICE: 01/08/19 Discharge Plan Patient Name: MELANIE RAI Facility: [facility]:[place] : 1960 Planned Disposition: Home with Home Health Anticipated Discharge Date: Discharge Date: Expected LOS: Initial Reviewer: [email or web address] Initial Review Date: 01/02/2019 Generated: 01/08/19 5:03 pm Comments DCP- Discharge Planning Updated by [email or web address]: Kelsey Capellan on 01/08/19 3:[address] PATIENT DISCHARGING HOME TODAY WITH [facility]. PATIENT'S DAUGHTER STATED THAT SHE WILL STAY WITH HER AT NIGHT AND THE PATIENT HAS A FRIEND/FAMILY WHO CAN STAY WITH HER DURING THE DAY. [facility] FOR HOME [facility] WITH PTMigel RUTHERFORD WITH [facility] WILL DELIVER HER CPM MACHINE I ATEMPTED TO GET HER A SHOWER CHAIR, BUT HER INSURANCE WILL NOT PAY FOR THE CHAIR SHE IS WANTING. I DID GET HER A 3 IN 1 BSC THAT CAN BE A SHOWER CHAIR, BUT SHE WANTED SOMETHING DIFFERENT. SHE WILL HAVE TO PURCHASE THE SPECIAL SHOWER CHAIR THAT SHE WANTS ON HER KNOW. SHE IS AWARE OF THIS AND UNDERSTANDS CM TO FOLLOW AND ASSIST NEEDED DCP- Discharge Planning Updated by [id number]: Kelsey Capellan on 01/08/19 1:[address] REFERRAL SENT TO [facility] DCP- Discharge Planning Updated by [id number]: Kelsey Capellan on 01/08/19 10:[address] MET WITH PATIENT THIS AM TO ASSESS DC PLANNING. SHE IS WALKING 250 FT AND FEELS SAFE TO DC HOME. SHE WOULD LIKE [facility], [facility] [place]. SHE STATED THAT SHE HAS HOME O2 THAT SHE WEARS AT NIGHT AND A NEBULIZER FROM [facility]. SHE HAS HAS A 3 IN 1 BEDSIDE COMMODE AND WALKER AT BEDSIDE. [facility] WILL DELIVER HER CPM TO HER [place] AT [place]. SHE STATED THAT HER DAUGHTER WILL BE HER PROJECT BUYER HOME AND WILL BE ABLE TO STAY WITH HER A LITTLE BIT FOR THE FIRST WEEK OR SO WHILE SHE RECOVERS. SHE ALSO STATES THAT SHE HAS A NEIGHBOR WHO CHECKS ON HER OFTEN. I WILL TRY TO GET HER THE SHOWER CHAIR THAT SHE IS REQUESTING. CM TILL CONTINUE TO FOLLOW AND ASSIST NEEDED DCP- Discharge Planning Updated by [id number]: Mulu Carvalho on 01/06/19 6:[address] CM met with patient and daughter, June regarding dc plans. CM explained the purpose of interview and patient gives permission to continue with her daughter present. The patient lives alone with her poodle. Per the patient's report, her mother 2 weeks ago. PCP: Dr. Ortiz. Pharmacy: [facility] on [address]. DME: elizabeth Mancini. States she has a w/c for use if needed. Denies stairs into or in the home. Patient does not have an emergency call button. Patient denies having falls in the home. Emergency contact: June Replaced By [facility] #[phone]. CM discussed benefits of HHS, Inpatient Rehab, Out-patient rehab. Patient states she would not go into a Nursing/Rehab, but In-patient rehab here at or [facility] would be ok. Patient reports that she is still having a high level of pain s/p TKA. Patient's daughter voices that her mother may use too much pain medication at home. Patient request a SHOWER BENCH with an extended seat be ordered for home use. Patient is in agreement to inpatient Rehab prior to going home. CM will follow for DC needs PRN. DCP- Discharge Planning Updated by [id number]: Kelsey Capellan on 01/04/19 4:[address] Wilfred with [facility] ([facility]) stated that he is only delivering a CPM and asked if I could get a BSC and walker from another DME. I sent an order to [facility] and spoke with Germania. She was going to have a walker and BSC be delivered to the hospital today if the patient discharged over the weekend. [facility] [phone] [facility] [phone] DCPIA - Discharge Planning Initial Assessment Updated by [email or web address]: Kelsey Capellan on 01/08/19 11:14 am * Is the patient Alert and Oriented? Yes * How many steps to enter\exit or inside your home? * PCP ORTIZ * Pharmacy [facility] * Preadmission Environment Home Alone * ADLs Independent * Equipment Bedside Commode Nebulizer Oxygen Rolling Walker * List name and contact numbers for known caregivers / representatives who currently or will assist patient after discharge: JUNE (DAUGHTER) [phone] * Verbal permission to speak to the caregivers and representatives has been obtained from the patient. N/A * Community resources currently utilized None * Additional services required to return to the preadmission environment? Yes * Can the patient safely return to the preadmission environment? Yes * Has this patient been hospitalized within the prior 30 days at any hospital? No Coverage Notice Reviewer: [id number] Karey Capellan Notice Issued Date-Time: 01/08/2019 9:30 Notice Type: Patient Choice Letter Notice Delivered To: Patient Relationship to Patient: Anodic Treater Name: Delivery Method: HAND - Hand Delivered Noreen Days: Prior Verbal Notification: Recipient Understood Notice: Yes Recipient Signature: Yes Med Rec Note Co-signed by Attending: Coverage Notice Comment: [facility] Lopez DP export: 01/08/19 1:29 Patient Name: MELANIE RAI Page 12801 at 1604 All edits/amendments must be made on the electronic document DICTATION DATE: 01/08/191602 OPERATIONS LABEL CLERK: KIRSTEN 01/08/191602 RPT#: [id number] DC DATE: STATUS: ADM IN [facility] [address] [place] [address] END OF REPORT
--- NOTE | 2019-01-08 16:52 | NUR ---
DISCHARGE PAPERWORK SIGNED, ALL QUESTIONS ANSWERED. IV TO LEFT FOREARM DC'D, TIP INTACT. ENVELOPE OF HOME MEDICATIONS RETURNED, PT SIGNED RECEIPT. ESCORTED OUT BY WHEELCHAIR.
--- NOTE | 2019-01-09 09:45 | MORECARE ---
CASE MANAGEMENT DISCHARGE SUMMARY PATIENT: MELANIE RAI UNIT: [id number] ADM DATE: 01/02/19 AGE: 58 : 56 SEX: F ROOM/BED: D.220 AUTHOR: IVETH COBB PHYSICIAN: REFERRING PHYSICIAN: GREGORY DICKSON MD DATE OF SERVICE: 01/09/19 Discharge Plan Patient Name: MELANIE RAI Facility: [facility]:[place] : 1960 Planned Disposition: Home with Home Health Anticipated Discharge Date: Discharge Date: 01/08/2019 Expected LOS: Initial Reviewer: [email or web address] Initial Review Date: 01/02/2019 Generated: 01/09/19 10:45 am Comments DCP- Discharge Planning Updated by [email or web address]: Kelsey Capellan on 01/08/19 3:[address] PATIENT DISCHARGING HOME TODAY WITH [facility]. PATIENT'S DAUGHTER STATED THAT SHE WILL STAY WITH HER AT NIGHT AND THE PATIENT HAS A FRIEND/FAMILY WHO CAN STAY WITH HER DURING THE DAY. [facility] FOR HOME HEALTH WITH PTMigel RUTHERFORD WITH [employer] WILL DELIVER HER CPM MACHINE I ATEMPTED TO GET HER A SHOWER CHAIR, BUT HER INSURANCE WILL NOT PAY FOR THE CHAIR SHE IS WANTING. I DID GET HER A 3 IN 1 BSC THAT CAN BE A SHOWER CHAIR, BUT SHE WANTED SOMETHING DIFFERENT. SHE WILL HAVE TO PURCHASE THE SPECIAL SHOWER CHAIR THAT SHE WANTS ON HER KNOW. SHE IS AWARE OF THIS AND UNDERSTANDS CM TO FOLLOW AND ASSIST NEEDED DCP- Discharge Planning Updated by [email or web address]: Kelsey Capellan on 01/08/19 1:[address] REFERRAL SENT TO [facility] DCP- Discharge Planning Updated by [email or web address]: Kelsey Capellan on 01/08/19 10:[address] MET WITH PATIENT THIS AM TO ASSESS DC PLANNING. SHE IS WALKING 250 FT AND FEELS SAFE TO DC HOME. SHE WOULD LIKE [facility], [facility]. SHE STATED THAT SHE HAS HOME O2 THAT SHE WEARS AT NIGHT AND A NEBULIZER FROM [facility] [place]. SHE HAS HAS A 3 IN 1 BEDSIDE COMMODE AND WALKER AT BEDSIDE. [facility] WILL DELIVER HER CPM TO [place] HOME [place]. SHE STATED THAT HER DAUGHTER WILL BE HER IP NETWORK ARCHITECT HOME AND WILL BE ABLE TO STAY WITH HER A LITTLE BIT FOR THE FIRST WEEK OR SO WHILE SHE RECOVERS. SHE ALSO STATES THAT SHE HAS A NEIGHBOR WHO CHECKS ON HER OFTEN. I WILL TRY TO GET HER THE SHOWER CHAIR THAT SHE IS REQUESTING. CM TILL CONTINUE TO FOLLOW AND ASSIST NEEDED DCP- Discharge Planning Updated by [email or web address]: Mulu Carvalho on 01/06/19 6:[address] CM met with patient and daughter, June regarding dc plans. CM explained the purpose of interview and patient gives permission to continue with her daughter present. The patient lives alone with her poodle. Per the patient's report, her mother 2 weeks ago. PCP: Dr. Ortiz. Pharmacy: [facility]. DME: elizabeth Mancini. States she has a w/c for use if needed. Denies stairs into or in the home. Patient does not have an emergency call button. Patient denies having falls in the home. Emergency contact: June [facility] #[phone]. CM discussed benefits of HHS, Inpatient Rehab, Out-patient rehab. Patient states she would not go into a Nursing/Rehab, but In-patient rehab here at or [facility] would be ok. Patient reports that she is still having a high level of pain s/p TKA. Patient's daughter voices that her mother may use too much pain medication at home. Patient request a SHOWER BENCH with an extended seat be ordered for home use. Patient is in agreement to inpatient Rehab prior to going home. CM will follow for DC needs PRN. DCP- Discharge Planning Updated by [email or web address]: Kelsey Capellan on 01/04/19 4:[address] Wilfred with [employer] (ortho [facility]) stated that he is only delivering a CPM and asked if I could get a BSC and walker from another DME. I sent an order to [facility] and spoke with Germania. She was going to have a walker and BSC be delivered to the hospital today if the patient discharged over the weekend. [phone] [phone] DCPIA - Discharge Planning Initial Assessment Updated by [email or web address]: Kelsey Capellan on 01/08/19 11:14 am * Is the patient Alert and Oriented? Yes * How many steps to enter\exit or inside your home? * PCP ORTIZ * Pharmacy [facility] * Preadmission Environment Home Alone * ADLs Independent * Equipment Bedside Commode Nebulizer Oxygen Rolling Walker * List name and contact numbers for known caregivers / representatives who currently or will assist patient after discharge: JUNE (DAUGHTER) [phone] * Verbal permission to speak to the caregivers and representatives has been obtained from the patient. N/A * Community resources currently utilized None * Additional services required to return to the preadmission environment? Yes * Can the patient safely return to the preadmission environment? Yes * Has this patient been hospitalized within the prior 30 days at any hospital? No Coverage Notice Reviewer: [id number] Karey Capellan Notice Issued Date-Time: 01/08/2019 9:30 Notice Type: Patient Choice Letter Notice Delivered To: Patient Relationship to Patient: School Occupational Therapist Name: Delivery Method: HAND - Hand Delivered Noreen Days: Prior Verbal Notification: Recipient Understood Notice: Yes Recipient Signature: Yes Med Rec Note Co-signed by Attending: Coverage Notice Comment: [facility] VINCENT Lopez DP export: 01/08/19 3:04 Patient Name: MELANIE RAI Page [id number] at 0945 All edits/amendments must be made on the electronic document DICTATION DATE: 01/09/19944 [employer] CONSULTANT: KIRSTEN 01/09/19944 RPT#: [id number] DC DATE:01/08/19 STATUS: DIS IN [facility] [address] [place] [address] END OF REPORT
== END 2019-01-08 16:54 | disposition home health service (06) | DRG 469 ==
LOC: D.M2 12-26 10:00 → D.MS 01-02 05:00 → D.SDCHOLD 01-02 05:00 → D.M2 01-02 07:30 → D.SDCHOLD 01-02 07:30 → D.M2 01-02 10:00 → D.SDCHOLD 01-02 10:00 → D.MS 01-02 10:25
PROVIDERS: Family Medicine; ADMIT Orthopaedic Surgery; ATTEND Orthopaedic Surgery
PROC: 0SRC0J9 Replacement of Right Knee Joint with Synthetic Substitute, Cemented, Open Approach (ICD-10-PCS; principal; 2019-01-02 07:30)
DX: M17.11 Unilateral primary osteoarthritis, right knee (principal); G93.41 Metabolic encephalopathy; J96.21 Acute and chronic respiratory failure with hypoxia; J18.9 Pneumonia, unspecified organism; B19.10 Unspecified viral hepatitis B without hepatic coma; J98.11 Atelectasis; J44.0 Chronic obstructive pulmonary disease with (acute) lower respiratory infection; F17.213 Nicotine dependence, cigarettes, with withdrawal; I10 Essential (primary) hypertension; J44.9 Chronic obstructive pulmonary disease, unspecified; Z86.73 Personal history of transient ischemic attack (TIA), and cerebral infarction without residual deficits; Y95 Nosocomial condition; E87.6 Hypokalemia; E11.9 Type 2 diabetes mellitus without complications; K21.9 Gastro-esophageal reflux disease without esophagitis; E78.5 Hyperlipidemia, unspecified

== ENCOUNTER → 2019-05-21 09:11 | Outpatient (CLI) | payer BC ==
[2019-04-17 11:13] VITALS: BMI 36.0
[~2019-05-21 09:11] MED LIST changes: +ASPIRIN325 MG PO; +AZITHROMYCIN500 MG PO; +LEVAQUIN750 MG PO; +PREDNISONE10 MG PO; +REXULTI1 MG PO; +VITAMIN D10000 UNI1 PO
== END | disposition home or self-care (01) ==
LOC: D.NM 09:11
PROVIDERS: ATTEND Clinical Nurse Specialist Family Health
DX: Z96.651 Presence of right artificial knee joint (principal)

== ENCOUNTER → 2019-05-28 18:07 | Outpatient (CLI) | payer BC ==
[2019-04-17 11:13] VITALS: BMI 36.0
== END | disposition home or self-care (01) ==
LOC: D.LABREF 18:07
PROVIDERS: ATTEND Orthopaedic Surgery
DX: M25.561 Pain in right knee (principal)

== ENCOUNTER → 2019-07-31 18:48 | Outpatient (CLI) | payer MEDICAID ==
[2019-04-17 11:13] VITALS: BMI 36.0
== END | disposition home or self-care (01) ==
LOC: D.LABREF 18:48
PROVIDERS: ATTEND Orthopaedic Surgery
DX: M25.561 Pain in right knee (principal)

== ENCOUNTER 2019-08-01 12:15 | Inpatient (IN) | payer MEDICAID ==
[~2019-08-01] VITALS: Ht 170.2 cm; Wt 122.7 kg
[2019-08-27] MEDS ORDERED: LASIX40 MG PO (15:08)
[2019-08-27] MEDS ORDERED: K-TAB10 MEQ PO (15:08)
[2019-08-27] MEDS ORDERED: SINGULAIR10 MG PO (15:08)
[2019-08-28] MEDS ORDERED: BAYER CHEWABLE81 MG PO (09:07)
[2019-08-28 09:52] LABS: BASOPHILS 0.2 % (0-2); EOSINOPHILS 1.9 % (0-7); HEMATOCRIT 46.7 % (36.0-48.0); HEMOGLOBIN 15.6 g/dL (12-16); IMMATURE GRANULOCYTES 0.2 % (0-5); LYMPHOCYTES 32.6 % (15-50); MCH 32.2 pg (26.0-34.0); MCHC 33.4 g/dL (31.0-37.0); MCV 96.3 fL (80.0-100.0); MEAN PLATELET VOLUME 10.3 fL (7.4-10.4); MONOCYTES 10.9 % (2-11); NEUTROPHILS 54.2 % (40-80); PLATELET COUNT 301 10x3/uL (130-400); RBC 4.85 10x6/uL (4.00-5.40); RDW 14.6 % (11.5-14.5); WBC 10.7 10x3/uL (4.8-10.8)
[2019-08-28 09:53] LABS: ANION GAP 10.9 mmol/L (8-16); CALCIUM 8.9 mg/dL (8.5-10.1); CARBON DIOXIDE 33.7 mmol/L (21.0-32.0); CREATININE - SERUM 1.3 mg/dL (0.6-1.3)
[2019-08-28 09:56] LABS: APTT 32.6 SECONDS (22.8-39.4); INR 0.95 (0.85-1.17); PROTIME 12.7 SECONDS (11.6-15.0)
[2019-08-28 10:05] LABS: POTASSIUM - SERUM 2.6 mmol/L (3.5-5.1)
[2019-08-28 13:31] LABS: BILIRUBIN NEGATIVE (NEGATIVE); GLUCOSE NEGATIVE (NEGATIVE); KETONE NEGATIVE (NEGATIVE); NITRITE NEGATIVE (NEGATIVE)
[2019-08-28 13:54] LABS: BACTERIA MODERATE /hpf (NEGATIVE); EPITHELIAL CELLS 0-5 /hpf (0-5); HYALINE CAST RARE /lpf (NONE SEEN); RED CELLS - URINE NONE SEEN /hpf (0-5); WHITE CELLS - URINE OCC /hpf (NEGATIVE)
[2019-09-02] MEDS ORDERED: MACRODANTIN100 MG (09:39)
[2019-09-02 10:33] VITALS: BP 118/83; BMI 36.9
[2019-09-02 10:38] LABS: BILIRUBIN NEGATIVE (NEGATIVE); GLUCOSE NEGATIVE (NEGATIVE); KETONE NEGATIVE (NEGATIVE); NITRITE NEGATIVE (NEGATIVE); SPECIFIC GRAVITY 1.005 (1.005-1.020); UROBILINOGEN NORMAL (NORMAL)
--- NOTE | 2019-09-02 11:20 | NUR ---
1025 RECEIVED CRITICAL SERUM POTASSIUM RESULTS (2.8) FROM LAB. OBTAINING URINE BY IN AND OUT CATH FOR A FOLLOW UP URINALYSIS. 1030 K+ RESULTS CALLED TO DR IGLESIAS. PHONE ORDERS RECEIVED FOR [facility] 10MEQ TO INFUSE OVER AN HOUR. URINE SENT TO LAB FOR ANALYSIS.
--- NOTE | 2019-09-02 11:39 | NUR ---
DR RAHMAN NOTIFIED AND REVIEWED PT'S BEHAVIOR AND ASSESSMENT. PT IS A LOW RISK. RESOURCES GIVEN AND SHE VERBALIZES UNDERSTANDING.
[2019-09-02 14:54] VITALS: BP 125/72
[2019-09-02 15:13] VITALS: Ht 170.2 cm; Wt 122.7 kg
--- NOTE | 2019-09-02 19:29 | NUR ---
PATIENT RESTING IN BED WITH EYES CLOSED AND DAUGHTER AT BEDSIDE. NO S/S OF DISTRESS. BED IN LOWEST POSITION AND CALL LIGHT WITHIN REACH. ENCOURAGED THE PATIENT TO CALL IF SHE HAS NEEDS. WILL CONTINUE TO MONITOR.
[2019-09-02 21:22] VITALS: BP 89/50
[2019-09-03 00:08] VITALS: BP 112/70
[2019-09-03 03:50] VITALS: BP 102/64
[2019-09-03 06:43] LABS: BASOPHILS 0.1 % (0-2); EOSINOPHILS 0 % (0-7); HEMATOCRIT 38.1 % (36.0-48.0); HEMOGLOBIN 12.4 g/dL (12-16); IMMATURE GRANULOCYTES 0.3 % (0-5); LYMPHOCYTES 15.1 % (15-50); MCH 31.8 pg (26.0-34.0); MCHC 32.5 g/dL (31.0-37.0); MCV 97.7 fL (80.0-100.0); MEAN PLATELET VOLUME 10.7 fL (7.4-10.4); MONOCYTES 10.1 % (2-11); NEUTROPHILS 74.4 % (40-80); PLATELET COUNT 267 10x3/uL (130-400); WBC 17.7 10x3/uL (4.8-10.8)
[2019-09-03 06:55] LABS: ANION GAP 8.3 mmol/L (8-16); CREATININE - SERUM 1.2 mg/dL (0.6-1.3); MAGNESIUM - SERUM 1.5 mg/dL (1.8-2.4); PHOSPHOROUS 3.9 mg/dL (2.5-4.9); POTASSIUM - SERUM 3.3 mmol/L (3.5-5.1)
--- NOTE | 2019-09-03 12:56 | OP ---
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 POSTOPERATIVE DIAGNOSIS: Painful total knee arthroplasty of the right knee. PROCEDURE: Revision total knee arthroplasty of the right knee. SURGEON: Farhat Spears MD MEDIA RELATIONS COORDINATOR: ERIC Claire SECOND PSYCH COORDINATOR: LUIGI Gil INTRAOPERATIVE COMPLICATIONS: None. SUMMARY OF PATHOLOGIC FINDINGS: The patient did appear to have a loose tibial baseplate as it came out very easily. The femur; however, was very well fixed. The patient had a previous DePuy rotating platform knee. IMPLANTS USED: A Triathlon total stabilized revision system. OPERATIVE SUMMARY IN DETAIL: After obtaining the appropriate preoperative orthopedic surgery consent as well as anesthetic consultation, evaluation and clearance, the patient was brought to the operating room and placed on the operating table in supine position. After general laryngeal mask airway was administered, tourniquet was placed on the proximal aspect of the right lower extremity. The right lower extremity was then prepped and draped in routine sterile fashion. The leg was elevated and exsanguinated, tourniquet inflated to 350 mmHg. At this point, the appropriate timeout was taken and agreed upon by all given the patient's unique identifiers. Midline incision was taken over the previously utilized midline incision down for paramedian arthrotomy. Paramedian arthrotomy was performed. The patella was subluxed laterally and the distal femoral components were exposed. Polyethylene was taken out relatively easy as the patient did have a moderate degree of laxity. The polyethylene having been removed, serial and sequential flexible osteotomes were utilized to remove the distal femur without a substantial amount of bone loss. Having completed this, attention was turned to removal of the proximal tibia. A very little effort was required to remove the top of the proximal tibia as it did not appear to have good marcus to the tibial baseplate. At this point, all excess cement was removed. Attention was first turned to the femur. Serial and sequential reaming and broaching were done for a size 16 x 150 Press-fit stem. Distal femoral cuts were made along with a preparation for the notch. Having completed this, attention was turned to some of the trial corresponding to the final component, it was put into place on the distal femur. Then, attention was turned to the tibia. Again, the residual of all cement was removed. Serial sequential reaming was done for a size 16 stem on the tibia as well. The proximal tibia required a cleanup cut. After the cleanup cut was done, the appropriate measurements were taken. No offsets were needed on the femur or the tibia and the final preparations for the tibia were completed. The trials corresponding to the ultimate implants were put into OPERATIVE REPORT [id number] MELANIE RAI and several trials were undertaken with different polyethylene inserts. It was thought that a size 16 was the most appropriate and stable. Having completed the trials, all the trial components were taken out and the knee cavity was irrigated in pulsatile lavage fashion while the components were being assembled on the back table. Having completed this, final components were cemented into place. All excess cement was removed. After the knee cement was allowed to harden, the knee was taken through range of motion and found to be stable in all planes without any overt laxity and the patella tracked nicely. At this point, a gram of vancomycin and a gram of tobramycin were placed in to the knee cavity and the wound was closed by Ronnell Mancini and Ha Casanova, instructional support assistant and mri assistant student, a #2 Ethibond followed by #1 Vicryl, 2-0 Vicryl and skin wilma. Sterile dressings were applied. The patient was awakened and taken to recovery in stable condition. All final needle and sponge counts were correct. TRANSINT:[id number] Voice Confirmation ID: [id number] DOCUMENT ID: [id number] TORY LUX, FARHAT CORRALES at 1256 CC: [id number] DICTATION DATE: 09/02/19 1404 CLINICAL TRAINER: 09/02/19 2307 [facility] [address] [place] [address]
--- NOTE | 2019-09-03 14:50 | NUR ---
PATIENT DRESSING TO RIGHT KNEE CHANGED DUE LEAKING AND SOAKING THROUGH DRESSING. INCISION INTACT WITH NAM. CLEANED WITH NS AND REPLACED AQUACEL AG DRESSING. ABD PADS OVER BOTTOM PART OF INCISION WHERE STILL BLEEDING. WRAPPED IN PUJA WRAP. PATIENT TOLERATED WITH NO PAIN. IV INTACT. CALL LIGHT WITHIN REACH.
[2019-09-03 15:12] VITALS: BP 110/64
[2019-09-03 17:05] VITALS: BP 128/59
--- NOTE | 2019-09-03 17:23 | MORECARE ---
CASE MANAGEMENT DISCHARGE SUMMARY PATIENT: MELANIE RAI UNIT: [id number] ADM DATE: 09/02/19 AGE: 58 : 56 SEX: F ROOM/BED: D.1213 AUTHOR: IVETH COBB PHYSICIAN: REFERRING PHYSICIAN: FARHAT SPEARS MD DATE OF SERVICE: 09/03/19 Discharge Plan Patient Name: MELANIE RAI Facility: [facility]:[place] : 1960 Planned Disposition: Home with Home Health Anticipated Discharge Date: Discharge Date: Expected LOS: Initial Reviewer: [email or web address] Initial Review Date: 09/02/2019 Generated: 09/03/19 6:22 pm Patient Name: MELANIE RAI Page [phone] at 1723 All edits/amendments must be made on the electronic document DICTATION DATE: 09/03/191721 TANK PUMPER PANELBOARD: KIRSTEN 09/03/191721 RPT#: [id number] DC DATE: STATUS: ADM IN [facility] [address] [place] [address] END OF REPORT
--- NOTE | 2019-09-03 17:33 | MORECARE ---
CASE MANAGEMENT DISCHARGE SUMMARY PATIENT: MELANIE RAI UNIT: [id number] ADM DATE: 09/02/19 AGE: 58 : 56 SEX: F ROOM/BED: D.1213 AUTHOR: REZA,DOC PHYSICIAN: REFERRING PHYSICIAN: FARHAT SPEARS MD DATE OF SERVICE: 09/03/19 Discharge Plan Patient Name: MELANIE RAI Facility: [facility]:[place] : 1960 Planned Disposition: Home with Home Health Anticipated Discharge Date: Discharge Date: Expected LOS: Initial Reviewer: [email or web address] Initial Review Date: 09/02/2019 Generated: 09/03/19 6:33 pm Comments DCP- Discharge Planning Updated by [email or web address]: Sena Romero on 09/03/19 4:[address] Patient Name: MELANIE RAI Admission Status: Elective Accout number: [id number] Admission Date: 09-02-2019 : 1960 Admission Diagnosis:PAIN DUE TO INTERNAL ORTHOPEDIC PROSTH DEV/GRFT, INIT Attending: FARHAT SPEARS Current LOS: 1 Anticipated DC Date: Planned Disposition: Home with Home Health Primary Insurance: [facility] Discharge Planning Comments: CM met with patient to complete initial dc planning assessment. CM educated patient on the CM role and verbal consent given by patient to complete assessment. Patient lives at home with friends Patient is independent. At discharge patient plans to return home and feels this is a safe discharge. CM discussed availability of home health, rehab services, and medical equipment. Patient would like [facility] for therapy upon discharge INDIRA signed. CM will fax referral to [facility]. Patient will have family to transport home. Patient denied known discharge needs at this time. CM will continue to follow and will assist as needed with dc plans/needs. Supervisor Farm Equipment Maintenance: Sena Romero DCPIA - Discharge Planning Initial Assessment Updated by [email or web address]: Sena Romero on 09/03/19 5:25 pm * Is the patient Alert and Oriented? Yes * How many steps to enter\exit or inside your home? RAMP * PCP [facility] * Pharmacy [facility] * Preadmission Environment Home with Family * ADLs Independent * Other Equipment HOME 02/ PORTABLE, NEBULIZER, BSC, WALKER, CPM * List name and contact numbers for known caregivers / representatives who currently or will assist patient after discharge: JUNE NEDRA - N[place]- [phone] * Verbal permission to speak to the caregivers and representatives has been obtained from the patient. Yes * Community resources currently utilized None * Additional services required to return to the preadmission environment? No * Can the patient safely return to the preadmission environment? Yes * Has this patient been hospitalized within the prior 30 days at any hospital? No External Providers External Provider: [facility] Next Contact Date: Service Request Date: Service Type: Resolution: Reviewer: Comments: Last DP export: 09/03/19 4:23 p Patient Name: MELANIE RAI Page [phone] at 1733 All edits/amendments must be made on the electronic document DICTATION DATE: 09/03/191732 FREELANCE MAKEUP ARTIST: KIRSTEN 09/03/191732 RPT#: [id number] DC DATE: STATUS: ADM IN [facility] [address] [place] [address] END OF REPORT
[2019-09-03 20:00] VITALS: BP 118/60
--- NOTE | 2019-09-03 20:00 | NUR ---
ALERT RESTING IN BED, PUJA WRAP DRESSING C/D/I TO RIGHT KNEE, C/O PAIN UNRELIEVED BY PEROCET GIVEN EARLIER, STATES HYDROCODONE WORKS BETTER FOR ME, INSTRUCTED WOULD GIVE SOON CAN UNABLE TO GIVE BOTH, SEE SHIFT ASSESSMENT, CALL LIGHT IN REACH
--- NOTE | 2019-09-03 21:45 | NUR ---
HYDROCODONE GIVEN FOR C/O PAIN 11 OUT OF 10
[2019-09-04] VITALS: BP 123/69
--- NOTE | 2019-09-04 00:30 | NUR ---
TORDOL GIVEN FOR CONTINUED C/O PAIN TO LEGS AND HEAD
--- NOTE | 2019-09-04 02:10 | NUR ---
REMAING AWAKE AND C/O PAIN TO LEGS, HYDROCODONE GIVEN
[2019-09-04 05:00] VITALS: BP 136/79
[2019-09-04 07:03] LABS: BASOPHILS 0.1 % (0-2); EOSINOPHILS 0.1 % (0-7); HEMATOCRIT 35.2 % (36.0-48.0); HEMOGLOBIN 11.4 g/dL (12-16); IMMATURE GRANULOCYTES 0.4 % (0-5); LYMPHOCYTES 28.5 % (15-50); MCH 31.6 pg (26.0-34.0); MCHC 32.4 g/dL (31.0-37.0); MCV 97.5 fL (80.0-100.0); MEAN PLATELET VOLUME 10.6 fL (7.4-10.4); MONOCYTES 9.4 % (2-11); NEUTROPHILS 61.5 % (40-80); PLATELET COUNT 242 10x3/uL (130-400); RBC 3.61 10x6/uL (4.00-5.40); RDW 15.3 % (11.5-14.5); WBC 13.5 10x3/uL (4.8-10.8)
[2019-09-04 07:07] LABS: CALC OSMOLALITY 281 mosm/kg (275-300); CALCIUM 8.5 mg/dL (8.5-10.1); CARBON DIOXIDE 32.4 mmol/L (21.0-32.0); CHLORIDE - SERUM 104 mmol/L (98-107); CREATININE - SERUM 0.8 mg/dL (0.6-1.3); GLUCOSE 128 mg/dL (74-106); MAGNESIUM - SERUM 1.8 mg/dL (1.8-2.4); PHOSPHOROUS 2.9 mg/dL (2.5-4.9); POTASSIUM - SERUM 3.1 mmol/L (3.5-5.1); SODIUM 141 mmol/L (136-145); UREA NITROGEN 9 mg/dL (7-18); eGFR NON AFRICAN AMERICAN 77 mL/min (90-120)
--- NOTE | 2019-09-04 08:00 | NUR ---
PATIENT USING BP FREQUENTLY. TOOK LASIX THIS AM. POTASSIUM 3.1. WILL GIVE 40 MEQ ON ELECTROLYTE PROTOCAL. PATIENT IV INTACT. NO COMPLAINTS. CALL LIGHT WITHIN REACH.
[2019-09-04 08:45] VITALS: BP 142/73
[2019-09-04 13:35] VITALS: BP 138/72
[2019-09-04 17:17] VITALS: BP 137/72
--- NOTE | 2019-09-04 18:45 | NUR ---
PATIENT IN BED WITH IV INTACT. HAS BEEN USING BSC VERY FREQUENTLY DUE TO [facility]. HAS BEEN UP IN CHAIR AND AMBULATING TODAY WITH NO PROBLEM. O2 WEANED DOWN TO 2LNC. PATIENT STATES SHE WEARS THAT AT HOME. NO COMPLAINTS OR SIGNS OF DISTRESS AT THIS TIME. CALL LIGHT WITHIN REACH.
--- NOTE | 2019-09-04 20:00 | NUR ---
ALERT SITTING UP IN BED, DAUGHTER AT BEDSIDE, REPORTS PT WANTING PAIN MEDS SOON SHE CAN HAVE IT, AGREED WILL BRING IT SOON POSSIABLE, SEE SHIFT ASSESSMENT, CALL LIGHT IN REACH
[2019-09-04 21:11] VITALS: BP 119/61
[2019-09-05 05:30] VITALS: BP 141/71
[2019-09-05 06:41] LABS: ANION GAP 9.8 mmol/L (8-16); CALCIUM 8.7 mg/dL (8.5-10.1); CARBON DIOXIDE 33.4 mmol/L (21.0-32.0); CREATININE - SERUM 0.9 mg/dL (0.6-1.3); MAGNESIUM - SERUM 1.6 mg/dL (1.8-2.4); POTASSIUM - SERUM 3.2 mmol/L (3.5-5.1)
[2019-09-05 06:44] LABS: PHOSPHOROUS 3.8 mg/dL (2.5-4.9)
[2019-09-05 07:29] LABS: BASOPHILS 0.1 % (0-2); HEMATOCRIT 37.8 % (36.0-48.0); HEMOGLOBIN 12.5 g/dL (12-16); IMMATURE GRANULOCYTES 0.2 % (0-5); LYMPHOCYTES 27.9 % (15-50); MCH 31.8 pg (26.0-34.0); MCHC 33.1 g/dL (31.0-37.0); MCV 96.2 fL (80.0-100.0); MEAN PLATELET VOLUME 10.5 fL (7.4-10.4); MONOCYTES 10.5 % (2-11); NEUTROPHILS 60.3 % (40-80); PLATELET COUNT 302 10x3/uL (130-400); RBC 3.93 10x6/uL (4.00-5.40); WBC 12.6 10x3/uL (4.8-10.8)
--- NOTE | 2019-09-05 07:30 | NUR ---
AWAKE AND ALERT. ORIENTED X3. NO C/O AT THIS TIME. LUNGS ARE CLEAR BILATERALLY, NO COUGH NOTED. REPORTED USING IS INSTRUCTED. SKIN IS INTACT WITHOUT REDNESS EXCEPT INCISION TO RIGHT KNEE, WHICH HAS A DRY INTACT DRESSING IN PLACE.IV TO LEFT HAND IS PATENT WITHOUT REDNESS AT INSERTION SITE. DENIES NEEDS.
[2019-09-05 08:20] VITALS: BP 102/68
--- NOTE | 2019-09-05 09:30 | NUR ---
ATE MOST OF BREAKFAST. TOOK AM MEDS WITHOUT DIFFICULTY. DENIES NEEDS.
--- NOTE | 2019-09-05 11:00 | NUR ---
UP TO BR WITH ONE PERSON MIN ASSIST. VOIDED WITHOUT DIFFICULTY. DENIES NEEDS.
[2019-09-05 11:50] VITALS: BP 127/70
[2019-09-05] MEDS ORDERED: PERCOCET 10-321 EAC1 PO (12:48)
[2019-09-05] MEDS ORDERED: ELIQUIS2.5 MG PO (12:48)
--- NOTE | 2019-09-05 12:50 | NUR ---
WANTS TO GET BACK IN BED. REQUESTED AND GIVEN ONE HYDROCODONE PO FOR C/O RIGHT KNEE PAIN LEVEL 9. WILL MONITOR. PT HERE TO WORK WITH PATIENT. POSITIONED IN BED FOR COMFORT AFTER THERAPY.
--- NOTE | 2019-09-05 14:25 | MORECARE ---
CASE MANAGEMENT DISCHARGE SUMMARY PATIENT: MELANIE RAI UNIT: [id number] ADM DATE: 09/02/19 AGE: 58 : 56 SEX: F ROOM/BED: D.1213 AUTHOR: IVETH COBB PHYSICIAN: REFERRING PHYSICIAN: FARHAT SPEARS MD DATE OF SERVICE: 09/05/19 Discharge Plan Patient Name: MELANIE RAI Facility: [facility]:[place] : 1960 Planned Disposition: Home with Home Health Anticipated Discharge Date: Discharge Date: Expected LOS: Initial Reviewer: [email or web address] Initial Review Date: 09/02/2019 Generated: 09/05/19 3:25 pm Comments DCP- Discharge Planning Updated by [email or web address]: Olimpia Monsivais on 09/05/19 1:[address] Patient Name: MELANIE RAI Encounter No: [id number] : 1960 Primary Insurance: [employer] Anticipated DC Date: Planned Disposition: Home with Home Health External Planned Provider: : DCP follow-up note: Patient plans to return home and feels this is a safe discharge. CM spoke with Apryl zhou [facility] at [phone] and faxed discharge orders. Patient will have family to transport home. Patient denies other discharge needs at this time. CM will continue to follow and will assist as needed with dc plans/needs. Patient and family in agreement with discharge plan. No changes to plan. Case management will follow and assist as needed. Olimpia Monsivais MSN,RN,CM DCP- Discharge Planning Updated by [email or web address]: Sena Romero on 09/03/19 4:[address] Patient Name: MELANIE RAI Admission Status: Elective Accout number: [id number] Admission Date: 09-02-2019 : 1960 Admission Diagnosis:PAIN DUE TO INTERNAL ORTHOPEDIC PROSTH DEV/GRFT, INIT Attending: FARHAT SPEARS Current LOS: 1 Anticipated DC Date: Planned Disposition: Home with Home Health Primary Insurance: [employer] Discharge Planning Comments: CM met with patient to complete initial dc planning assessment. CM educated patient on the CM role and verbal consent given by patient to complete assessment. Patient lives at home with friends Patient is independent. At discharge patient plans to return home and feels this is a safe discharge. CM discussed availability of home health, rehab services, and medical equipment. Patient would like [facility] for therapy upon discharge INDIRA signed. CM will fax referral to [facility]. Patient will have family to transport home. Patient denied known discharge needs at this time. CM will continue to follow and will assist as needed with dc plans/needs. Emissions Inspector: Sena Romero DCPIA - Discharge Planning Initial Assessment Updated by [email or web address]: Sena Romero on 09/03/19 5:25 pm * Is the patient Alert and Oriented? Yes * How many steps to enter\exit or inside your home? RAMP * PCP [facility] * Pharmacy [facility] * Preadmission Environment Home with Family * ADLs Independent * Other Equipment HOME 02/ PORTABLE, NEBULIZER, BSC, WALKER, CPM * List name and contact numbers for known caregivers / representatives who currently or will assist patient after discharge: JUNE NEDRA [facility]- [phone] * Verbal permission to speak to the caregivers and representatives has been obtained from the patient. Yes * Community resources currently utilized None * Additional services required to return to the preadmission environment? No * Can the patient safely return to the preadmission environment? Yes * Has this patient been hospitalized within the prior 30 days at any hospital? No Last DP export: 09/03/19 4:33 p Patient Name: MELANIE RAI Page [phone] at 1425 All edits/amendments must be made on the electronic document DICTATION DATE: 09/05/19 1425 HEEL STAINER: KIRSTEN 09/05/19 1425 RPT#: [id number] DC DATE: STATUS: ADM IN [facility] [address] [place] [address] END OF REPORT
--- NOTE | 2019-09-05 15:25 | NUR ---
DISCHARGED TO HOME AMBULATORY WITH FRIEND. DISCHARGE INSTRUCTIONS GIVEN BOTH VERBALLY AND WRITTEN. ALL QUESTIONS ANSWERED. PATIENT VERBALZIED UNDERSTANDING OF SAME. SL TO LEFT HAND D/C WITH CATHETER INTACT. WAITING ON RIDE TO D/C.
--- NOTE | 2019-09-05 16:06 | NUR ---
DISCHARGED TO HOME WITH FRIEND. ALL BELONGINGS WITH PATIENT.
--- NOTE | 2019-09-06 09:14 | MORECARE ---
CASE MANAGEMENT DISCHARGE SUMMARY PATIENT: MELANIE RAI UNIT: [id number] ADM DATE: 09/02/19 AGE: 58 : 56 SEX: F ROOM/BED: D.1213 AUTHOR: REZA,DOC PHYSICIAN: REFERRING PHYSICIAN: FARHAT SPEARS MD DATE OF SERVICE: 09/06/19 Discharge Plan Patient Name: MELANIE RAI Facility: [facility]:[place] : 1960 Planned Disposition: Home with Home Health Anticipated Discharge Date: Discharge Date: 09/05/2019 Expected LOS: Initial Reviewer: [email or web address] Initial Review Date: 09/02/2019 Generated: 09/06/19 10:13 am Comments DCP- Discharge Planning Updated by [email or web address]: Olimpia Monsivais on 09/05/19 1:[address] Patient Name: MELANIE RAI Encounter No: [id number] : 1960 Primary Insurance: [employer] JOSEPH Anticipated DC Date: Planned Disposition: Home with Home Health External Planned Provider: : DCP follow-up note: Patient plans to return home and feels this is a safe discharge. CM spoke with Apryl zhou [facility] at [phone] and faxed discharge orders. Patient will have family to transport home. Patient denies other discharge needs at this time. CM will continue to follow and will assist as needed with dc plans/needs. Patient and family in agreement with discharge plan. No changes to plan. Case management will follow and assist as needed. Olimpia Monsivais MSN,RN,CM DCP- Discharge Planning Updated by [email or web address]: Sena Romero on 09/03/19 4:[address] Patient Name: MELANIE RAI Admission Status: Elective Accout number: [id number] Admission Date: 09-02-2019 : 1960 Admission Diagnosis:PAIN DUE TO INTERNAL ORTHOPEDIC PROSTH DEV/GRFT, INIT Attending: FARHAT SPEARS Current LOS: 1 Anticipated DC Date: Planned Disposition: Home with Home Health Primary Insurance: [employer] JO[employer]PH Discharge Planning Comments: CM met with patient to complete initial dc planning assessment. CM educated patient on the CM role and verbal consent given by patient to complete assessment. Patient lives at home with friends Patient is independent. At discharge patient plans to return home and feels this is a safe discharge. CM discussed availability of home health, rehab services, and medical equipment. Patient would like [facility] for therapy upon discharge INDIRA signed. CM will fax referral to [facility]. Patient will have family to transport home. Patient denied known discharge needs at this time. CM will continue to follow and will assist as needed with dc plans/needs. Outsole Leveler: Sena Romero DCPIA - Discharge Planning Initial Assessment Updated by [email or web address]: Sena Romero on 09/03/19 5:25 pm * Is the patient Alert and Oriented? Yes * How many steps to enter\exit or inside your home? RAMP * PCP [facility] * Pharmacy [facility] * Preadmission Environment Home with Family * ADLs Independent * Other Equipment HOME 02/ PORTABLE, NEBULIZER, BSC, WALKER, CPM * List name and contact numbers for known caregivers / representatives who currently or will assist patient after discharge: [facility]- [phone] * Verbal permission to speak to the caregivers and representatives has been obtained from the patient. Yes * Community resources currently utilized None * Additional services required to return to the preadmission environment? No * Can the patient safely return to the preadmission environment? Yes * Has this patient been hospitalized within the prior 30 days at any hospital? No Last DP export: 09/05/19 1:25 p Patient Name: MELANIE RAI Page [phone] at 0914 All edits/amendments must be made on the electronic document DICTATION DATE: 09/06/19912 CAMP COORDINATOR: KIRSTEN 09/06/19912 RPT#: [id number] DC DATE:09/05/19 STATUS: DIS IN [facility] [address] [place] [address] END OF REPORT
== END 2019-09-05 16:06 | disposition home health service (06) | DRG 467 ==
LOC: D.M3 09-02 08:35 → D.SDCHOLD 09-02 08:35 → D.M3 09-02 14:28
PROVIDERS: Family Medicine; ADMIT Orthopaedic Surgery; ATTEND Orthopaedic Surgery
PROC: 0SRC0J9 Replacement of Right Knee Joint with Synthetic Substitute, Cemented, Open Approach (ICD-10-PCS; 2019-09-02)
PROC: 0SPC0JZ Removal of Synthetic Substitute from Right Knee Joint, Open Approach (ICD-10-PCS; principal; 2019-09-02 10:45)
DX: T84.84XA Pain due to internal orthopedic prosthetic devices, implants and grafts, initial encounter (principal); Z68.41 Body mass index [BMI] 40.0-44.9, adult; F17.203 Nicotine dependence unspecified, with withdrawal; Y83.9 Surgical procedure, unspecified as the cause of abnormal reaction of the patient, or of later complication, without mention of misadventure at the time of the procedure; I10 Essential (primary) hypertension; E78.5 Hyperlipidemia, unspecified; J44.9 Chronic obstructive pulmonary disease, unspecified; E66.01 Morbid (severe) obesity due to excess calories; E87.6 Hypokalemia; F41.8 Other specified anxiety disorders; G25.81 Restless legs syndrome; K21.9 Gastro-esophageal reflux disease without esophagitis

== ENCOUNTER 2019-09-12 01:59 | Inpatient (IN) | payer MEDICAID ==
[~2019-09-12] VITALS: Ht 170.2 cm; Wt 106.4 kg
[2019-09-12] VITALS (11 sets, daily range): BP systolic 110–145; BP diastolic 52–785; Ht 170.2 cm; Wt 106.4 kg
[~2019-09-12 01:59] MED LIST changes: +BAYER CHEWABLE81 MG PO; +ELIQUIS2.5 MG PO; +K-TAB10 MEQ PO; +LASIX40 MG PO; +MACRODANTIN100 MG; +PERCOCET 10-321 EAC1 PO; +SINGULAIR10 MG PO
[2019-09-12 02:41] LABS: BASOPHILS 0.1 % (0-2); EOSINOPHILS 3.2 % (0-7); HEMATOCRIT 36.2 % (36.0-48.0); HEMOGLOBIN 12.2 g/dL (12-16); IMMATURE GRANULOCYTES 0.5 % (0-5); MCH 32.4 pg (26.0-34.0); MCHC 33.7 g/dL (31.0-37.0); MCV 96.3 fL (80.0-100.0); MEAN PLATELET VOLUME 9.6 fL (7.4-10.4); MONOCYTES 9.3 % (2-11); NEUTROPHILS 59.9 % (40-80); RBC 3.76 10x6/uL (4.00-5.40); RDW 14.1 % (11.5-14.5); WBC 16.7 10x3/uL (4.8-10.8)
[2019-09-12 02:46] LABS: PLATELET COUNT 454 10x3/uL (130-400)
[2019-09-12 02:49] LABS: APTT 34.9 SECONDS (22.8-39.4); INR 1.07 (0.85-1.17); PROTIME 13.9 SECONDS (11.6-15.0)
[2019-09-12 03:00] LABS: ALBUMIN 3.3 g/dL (3.4-5.0); ANION GAP 7.2 mmol/L (8-16); BILIRUBIN - TOTAL 0.58 mg/dL (0.2-1.3); CALCIUM 8.4 mg/dL (8.5-10.1); CARBON DIOXIDE 33.4 mmol/L (21.0-32.0); CREATININE - SERUM 1.2 mg/dL (0.6-1.3)
[2019-09-12 03:03] LABS: POTASSIUM - SERUM 2.6 mmol/L (3.5-5.1)
--- NOTE | 2019-09-12 03:40 | NUR ---
TXA INFUSION FINISHED AT THIS TIME.
--- NOTE | 2019-09-12 04:15 | NUR ---
RECIEVED FROM ER ALERT AND ORIENTIATED STATES WAS WALKING DOWN HALWAY AT HOME WHEN RIGHT KNEE JUST GAVE OUT AND FELL, ADMITS NOT USING WALKER, AND THEN WHEN GOT TO ER FELL AGAIN OUTSIDE ER, HAS PUJA WRAP PRESSURE DRESSING IN PLACE TO RIGHT KNEE, VSS, O2 IN USE AT 3L, SEE ASSESMENT, DAUGHTER AT BEDSIDE, MORPHINE FLOOR SCRAPER STARTED ORDERED FOR PAIN CONTROL
--- NOTE | 2019-09-12 07:15 | NUR ---
PT RESTING IN BED WITH EYES CLOSED. RESPIRATIONS ARE EVEN AND UNLABORED. PT IS EASILY AROUSED WITH VERBAL STIMULATION. PT IS AAO X 4 UPON AROUSAL. FALL PRECAUTIONS IN PLACE. DRESSING TO RIGHT KNEE NOTED AND IS CDI. PT DENIES PRESENCE OF NUBNESS/TINGLING TO BLE. CAP REFILL TO BLE IS < 3 SECONDS. PT DENIES PRESENCE OF N/V. ASSET PROTECTION AGENT MORPHINE AVAILABLE PER ORDER. PIV TO RIGHT AC INFUSING PER ORDER WITHOUT DIFFICULTY. INCENTIVE SPIROMETER AT BEDSIDE AND ENCOURAGED. PT VERBALIZES UNDERSTANDING. BED IS IN THE LOWEST POSITION. CALL LIGHT AND BEDSIDE TABLE ARE WITHIN REACH. SIDE RAILS X 2. PT DENIES FURTHER NEEDS. WILL CONT TO MONITOR.
--- NOTE | 2019-09-12 07:17 | NUR ---
CONSENTS SIGNED BY PT. PT DENIES FURTHER QUESTIONS/CONCERNS/NEEDS AT THIS TIME. ALL SIGNED CONSENTS PLACED IN PT CHART. PRE OP MEDS GIVEN PER ORDER REQUESTED BY SURGERY STAFF.
--- NOTE | 2019-09-12 07:23 | NUR ---
HIBICLENS COMPLETED. ALL FALL PRECAUTIONS IN PLACE. BED IS IN THE LOWEST POSITION. CALL LIGHT AND BEDSIDE TABLE ARE WITHIN REACH. SIDE RAILS X 2. PT DENIES FURTHER NEEDS. WILL CONT TO MONITOR.
--- NOTE | 2019-09-12 07:39 | NUR ---
PT TRANSPORTED OFF FLOOR VIA BED FOR PROCEDURE.
--- NOTE | 2019-09-12 09:30 | NUR ---
PT ARRIVES TO ROOM VIA BED ESCORTED BY RECOVERY ROOM STAFF. PT IS DROWSEY BUT EASILY AROUSED WITH VERBAL STIMULATION. PT ANSWERS ALL QUESTIONS APPROPRIATELY AND IS AAO X 4 UPON AROUSAL. O2 VIA NC @ 4L. FREQUENT VITALS ESTABLISHED. SEE FLOWSHEET. NO APPRENT S/S OF DISTRESS NOTED. DRESSING TO RLE IS IN PLACE AND CDI. PEDAL PULSE IS PALP AND CAP REFILL IS < 3 SECONDS. ALL FALL PRECAUTIONS ARE IN PLACE. INCENTIVE SPIROMETER AT BEDSIDE. CALL LIGHT AND BEDSIDE TABLE ARE WITHIN REACH. SIDE RAILS X 2. PT DENIES FURTHER NEEDS. WILL CONT TO MONITOR.
--- NOTE | 2019-09-12 11:26 | NUR ---
PT RESTING COMFORTABLY AND WITH EYES CLOSED. RESPIRATIONS ARE EVEN AND UNLABORED. PIV INFUSING TO RIGHT AC PER ORDER WITHOUT DIFFICULTY. PUNCH MACHINE OPERATOR AVAILABLE AT PUNCH MACHINE OPERATOR [employer]TON IS WITHIN PT REACH. O2 VIA NC @4L. DRESSING TO RLE IS CDI. FALL PRECAUTIONS IN PLACE. INCENTIVE SPIROMETER AT BEDSIDE AND ENCOURAGED. PT VERBALIZES UNDERSTANDING AND DENIES FURTHER NEEDS. BED IS IN THE LOWEST POSITION. CALL LIGHT AND BEDSIDE TABLE ARE WITHIN REACH. SIDE RAILS X 2. WILL CONT TO MONITOR.
--- NOTE | 2019-09-12 13:23 | NUR ---
PT WITH EPISODE OF INCONTINENCE OF BLADDER. FULL LINEN AND GOWN CHANGE. ALL FALL PRECAUTIONS IN PLACE. BED IS IN THE LOWEST POSITION. CALL LIGHT AND BEDSIDE TABLE ARE WITHIN REACH. SIDE RAILS X 2. PT DENIES FURTHER NEEDS. WILL CONT TO MONITOR.
--- NOTE | 2019-09-12 14:28 | OP ---
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 PROCEDURE: Irrigation and debridement of open knee wound with closure. SURGEON: Farhat Spears MD PRINTED CIRCUIT BOARDS LAMINATOR: ERIC Claire INTRAOPERATIVE COMPLICATIONS: None. SUMMARY OF PATHOLOGIC FINDINGS: Unfortunately, the patient's capsule was watertight without any perforation. When the patient fell, she quite simply caused dehiscence of the central one-third of her superficial closure. OPERATIVE SUMMARY IN DETAIL: After obtaining the appropriate preoperative orthopedic surgery consent as well as anesthetic consultation, evaluation and clearance, the patient was brought to the operating room and placed on the operating table in supine position. After general laryngeal mask airway was administered, tourniquet was placed about the proximal aspect of the right lower extremity. Right lower extremity was prepped and draped in routine sterile fashion. Tourniquet was not deployed. The wound was inspected and found to have excellent capsular closure without evidence of perforation. Pulsatile lavage irrigation was carried out to take care of any and all blood clots, residual blood, nonviable appearing tissue. At this point, a gram of vancomycin and a gram of tobramycin were placed in the wound and the wound was then closed with #1 Vicryl, 2-0 Vicryl and zip ties, done by ERIC Claire. Sterile dressings were applied. The patient was awakened and taken to the recovery room in stable condition. All final needle and sponge counts were correct. TRANSINT:[id number] Voice Confirmation ID: [id number] DOCUMENT ID: [id number] FARHAT SPEARS MD at 1428 CC: [id number] DICTATION DATE: 09/12/19 0843 PAINT ROLLER COVERMAKER: 09/12/19 1413 ADM IN [facility] [address] [place] [address]
--- NOTE | 2019-09-12 17:07 | NUR ---
PT EVELINE FOSTER AT BEDSIDE AND ASKS TO SPEAK WITH THIS NURSE OUTSIDE OF ROOM. PT DAUGHTER WITH CONCERNS OF PT ABILITY OF RECOVERING AT HOME AND STATES "SHE WILL TAKE PILLS. THE PERSON THAT LIVES WITH HER DOESN'T HELP HER A LOT. SHE DROVE HERSELF TO THE ER LAST NIGHT". PT DAUGHTER WOULD LIKE TO SPEAK WITH CASE MANAGEMENT ABOUT REHAB PLACEMENT AND CAN BE REACHED AT [phone] BETWEEN 0800 AND 1600. WILL INFORM NIGHT NURSE TO PASS IN REPORT IN AM TO ENSURE THAT CASE MANAGEMENT CONTACTS PT DAUGHTER.
--- NOTE | 2019-09-12 19:15 | NUR ---
ALERT RESTING IN BED, DENIES PAIN OR NEEDS AT THIS TIME, CALL LIGHT IN REACH, SEE SHIFT ASSESSMENT, MORPHINE PRODUCT MARKETING ENGINEER IN USE FOR PAIN CONTROL
[2019-09-13] VITALS: BP 125/70
[2019-09-13 04:00] VITALS: BP 111/68
--- NOTE | 2019-09-13 04:19 | NUR ---
MORPHINE BAGGAGE PORTER DC'D AT THIS TIME, INSTRUCTED TO CALL IF FEELING PAIN TO KNEE AND WILL GIVE PAIN PILL, DENIES PAIN AT THIS TIME, CALL LIGHT IN REACH
[2019-09-13 07:26] LABS: BASOPHILS 0.1 % (0-2); EOSINOPHILS 2.3 % (0-7); HEMOGLOBIN 10.5 g/dL (12-16); IMMATURE GRANULOCYTES 0.4 % (0-5); LYMPHOCYTES 23.7 % (15-50); MCH 31.3 pg (26.0-34.0); MCHC 31.8 g/dL (31.0-37.0); MEAN PLATELET VOLUME 9.8 fL (7.4-10.4); MONOCYTES 11.2 % (2-11); NEUTROPHILS 62.3 % (40-80); PLATELET COUNT 380 10x3/uL (130-400); RBC 3.35 10x6/uL (4.00-5.40); RDW 14.5 % (11.5-14.5); WBC 13.5 10x3/uL (4.8-10.8)
--- NOTE | 2019-09-13 07:30 | NUR ---
AWAKE AND ALERT. ORIENTED X3. NO C/O AT THIS TIME. INCONTINENT OF LARGE VOLUMN OF URINE AT THIS TIME. SKIN CARE AND LINENS CHANGED PER STAFF. LUNGS ARE CLEAR BILATERALLY, NO COUGH NOTED. REPORTS USING IS INSTRUCTED. SKIN IS INTACT WITHOUT REDNESS EXCEPT INCISION TO RIGHT KNEE WHICH HAS A DRY INTACT DRESSING IN PLACE. NO IV ACCESS AT THIS TIME. DENIES NEEDS.
[2019-09-13 07:33] LABS: MCV 98.5 fL (80.0-100.0)
[2019-09-13 07:50] VITALS: BP 122/68
[2019-09-13 07:51] LABS: ALBUMIN 2.8 g/dL (3.4-5.0); BILIRUBIN - TOTAL 0.48 mg/dL (0.2-1.3); CALCIUM 8.2 mg/dL (8.5-10.1); CARBON DIOXIDE 32.2 mmol/L (21.0-32.0); CREATININE - SERUM 0.9 mg/dL (0.6-1.3); PROTEIN - SERUM 6.1 g/dL (6.4-8.2)
[2019-09-13 08:00] LABS: ANION GAP 8.5 mmol/L (8-16); POTASSIUM - SERUM 2.7 mmol/L (3.5-5.1)
--- NOTE | 2019-09-13 09:00 | NUR ---
REFUSED BREAKFAST TRAY AND OFFER OF ALTERNATIVE MEAL. DENIES NEEDS.
--- NOTE | 2019-09-13 10:00 | NUR ---
AMBULATED IN HALLWAY WITH PT OVER 150.
--- NOTE | 2019-09-13 11:57 | NUR ---
DISCHARGE INSTRUCTIONS GIVEN BOTH VERBALLY AND WRITTEN. ALL QUESTIONS ANSWERED. PATIENT VERBALIZED UNDERSTANDING IF SAME. WAITING ON RIDE TO D/C HOME.
--- NOTE | 2019-09-13 12:26 | NUR ---
DISCHARGED TO HOME AMBULATORY WITH ROOM MATE. ALL BELONGINGS WITH PATIENT. ALL QUESTIONS ANSWERED.
--- NOTE | 2019-09-13 18:56 | MORECARE ---
CASE MANAGEMENT DISCHARGE SUMMARY PATIENT: MELANIE RAI UNIT: [id number] ADM DATE: 09/12/19 AGE: 58 : 56 SEX: F ROOM/BED: D.1205 AUTHOR: IVETH COBB PHYSICIAN: REFERRING PHYSICIAN: FARHAT SPEARS MD DATE OF SERVICE: 09/13/19 Discharge Plan Patient Name: MELANIE RAI Facility: [facility]:[place] : 1960 Planned Disposition: Home with Home Health Anticipated Discharge Date: Discharge Date: 09/13/2019 Expected LOS: Initial Reviewer: [email or web address] Initial Review Date: 09/12/2019 Generated: 09/13/19 7:55 pm DCPIA - Discharge Planning Initial Assessment Updated by [email or web address]: Sena Romero on 09/13/19 6:53 pm * Is the patient Alert and Oriented? Yes * How many steps to enter\exit or inside your home? ramp * PCP [facility] * Pharmacy [facility] * Preadmission Environment Home with Family * ADLs Partial Dependent * Partial ADLs (Assistance needed) Ambulation Bathing Dressing Eating Medication Management Toileting Transfers * Other Equipment walker, BSC, CPM, NEBULIZER, HOME/PORTABLE 02 * List name and contact numbers for known caregivers / representatives who currently or will assist patient after discharge: JUNE NEDRA TYLOR - [phone] * Verbal permission to speak to the caregivers and representatives has been obtained from the patient. No * Community resources currently utilized Home Health * Please name any agencies selected above. [facility] * Additional services required to return to the preadmission environment? No * Can the patient safely return to the preadmission environment? Yes * Has this patient been hospitalized within the prior 30 days at any hospital? Yes Patient Name: MELANIE RAI Page 69869 at 1856 All edits/amendments must be made on the electronic document DICTATION DATE: 09/13/191854 LABORATORY TECHNOLOGIST: KIRSTEN 09/13/191854 RPT#: [id number] DC DATE:09/13/19 STATUS: DIS IN [facility] [address] [place] [address] END OF REPORT
--- NOTE | 2019-09-13 19:09 | MORECARE ---
CASE MANAGEMENT DISCHARGE SUMMARY PATIENT: MELANIE RAI UNIT: [id number] ADM DATE: 09/12/19 AGE: 58 : 56 SEX: F ROOM/BED: D.1205 AUTHOR: REZA,DOC PHYSICIAN: REFERRING PHYSICIAN: FARHAT SPEARS MD DATE OF SERVICE: 09/13/19 Discharge Plan Patient Name: MELANIE RAI Facility: [facility]:[place] : 1960 Planned Disposition: Home with Home Health Anticipated Discharge Date: Discharge Date: 09/13/2019 Expected LOS: Initial Reviewer: [email or web address] Initial Review Date: 09/12/2019 Generated: 09/13/19 8:08 pm Comments DCP- Discharge Planning Updated by [email or web address]: Sena Romero on 09/13/19 6:[address] Patient Name: MELANIE RAI Admission Status: ER Accout number: [id number] Admission Date: 09-12-2019 : 1960 Admission Diagnosis:OTH COMP OF INTERNAL ORTHOPEDIC PROSTH DEV/GRDONNELL, INIT Attending: FARHAT SPEARS Current LOS: 1 Anticipated DC Date: Planned Disposition: Home with Home Health Primary Insurance: [facility] [employer] [facility] Discharge Planning Comments: CM met with patient to complete initial dc planning assessment. CM educated patient on the CM role and verbal consent given by patient to complete assessment. Patient lives at home with two roommates. Patient is partially independent. At discharge patient plans to return home and feels this is a safe discharge. CM discussed availability of home health, rehab services, and medical equipment. Patient will resume with [facility] when discharged. Patient refuses Inpatient rehab services INDIRA signed. Patient will have family to transport home. Patient states that she thinks that the reason she was falling was because she wasn't wearing her oxygen while she up. She stated that she would get dizzy and fall. Patient denied known discharge needs at this time. CM will continue to follow and will assist as needed with dc plans/needs. Fruit Worker: Sena Romero DCPIA - Discharge Planning Initial Assessment Updated by [email or web address]: Sena Romero on 09/13/19 6:53 pm * Is the patient Alert and Oriented? Yes * How many steps to enter\exit or inside your home? ramp * PCP [facility] * Pharmacy [facility] * Preadmission Environment Home with Family * ADLs Partial Dependent * Partial ADLs (Assistance needed) Ambulation Bathing Dressing Eating Medication Management Toileting Transfers * Other Equipment walker, BSC, CPM, NEBULIZER, HOME/PORTABLE 02 * List name and contact numbers for known caregivers / representatives who currently or will assist patient after discharge: JUNE NEDRA SNIDER [phone] * Verbal permission to speak to the caregivers and representatives has been obtained from the patient. No * Community resources currently utilized Home Health * Please name any agencies selected above. [facility] * Additional services required to return to the preadmission environment? No * Can the patient safely return to the preadmission environment? Yes * Has this patient been hospitalized within the prior 30 days at any hospital? Yes Coverage Notice Reviewer: [id number] - Sena Romero Notice Issued Date-Time: 09/13/2019 11:30 Notice Type: Patient Choice Letter Notice Delivered To: Patient Relationship to Patient: Self Medical Clinic Manager Name: Delivery Method: HAND - Hand Delivered Noreen Days: Prior Verbal Notification: Recipient Understood Notice: Yes Recipient Signature: Yes Med Rec Note Co-signed by Attending: Coverage Notice Comment: Last DP export: 09/13/19 5:56 p Patient Name: MELANIE RAI Page [id number] at 1909 All edits/amendments must be made on the electronic document DICTATION DATE: 09/13/191907 TUTOR: KIRSTEN 09/13/191907 RPT#: [id number] DC DATE:09/13/19 STATUS: DIS IN [facility] [address] [place] [address] END OF REPORT
== END 2019-09-13 12:28 | disposition home health service (06) | DRG 501 ==
LOC: D.ER 01:59 → D.M3 02:23
PROVIDERS: Family Medicine; ADMIT Orthopaedic Surgery; ATTEND Orthopaedic Surgery
PROC: 0JDN0ZZ Extraction of Right Lower Leg Subcutaneous Tissue and Fascia, Open Approach (ICD-10-PCS; principal; 2019-09-12 16:00)
DX: T84.89XA Other specified complication of internal orthopedic prosthetic devices, implants and grafts, initial encounter (principal); T81.30XA Disruption of wound, unspecified, initial encounter; F17.200 Nicotine dependence, unspecified, uncomplicated; J44.9 Chronic obstructive pulmonary disease, unspecified; I10 Essential (primary) hypertension; E78.5 Hyperlipidemia, unspecified; K21.9 Gastro-esophageal reflux disease without esophagitis

== ENCOUNTER 2019-09-17 13:45 | Inpatient (IN) | payer MEDICAID ==
[~2019-09-17] VITALS: Ht 170.2 cm; Wt 106.4 kg
[2019-09-17 16:31] LABS: BASOPHILS 0.2 % (0-2); HEMATOCRIT 37.6 % (36.0-48.0); HEMOGLOBIN 12.8 g/dL (12-16); IMMATURE GRANULOCYTES 0.3 % (0-5); LYMPHOCYTES 25.6 % (15-50); MCH 32.4 pg (26.0-34.0); MCV 95.2 fL (80.0-100.0); MEAN PLATELET VOLUME 9.7 fL (7.4-10.4); MONOCYTES 10.8 % (2-11); NEUTROPHILS 60.1 % (40-80); PLATELET COUNT 452 10x3/uL (130-400); RBC 3.95 10x6/uL (4.00-5.40); RDW 13.8 % (11.5-14.5); WBC 11.7 10x3/uL (4.8-10.8)
[2019-09-17 16:48] LABS: APTT 31.6 SECONDS (22.8-39.4); INR 1.09 (0.85-1.17); PROTIME 14.1 SECONDS (11.6-15.0)
[2019-09-17 17:12] LABS: ALBUMIN 3.4 g/dL (3.4-5.0); ALKALINE PHOSPHATASE 138 U/L (30-120); ALT (SGPT) 25 U/L (10-68); BILIRUBIN - TOTAL 0.64 mg/dL (0.2-1.3); CALC OSMOLALITY 267 mosm/kg (275-300); CALCIUM 8.5 mg/dL (8.5-10.1); CARBON DIOXIDE 33.8 mmol/L (21.0-32.0); CHLORIDE - SERUM 97 mmol/L (98-107); CKMB 5.1 U/L (0.0-3.6); CREATINE KINASE 272 UL (21-215); CREATININE - SERUM 1.1 mg/dL (0.6-1.3); GLUCOSE 91 mg/dL (74-106); PROTEIN - SERUM 7.3 g/dL (6.4-8.2); SODIUM 135 mmol/L (136-145); TROPONIN-I < 0.017 ng/mL (0.000-0.060); UREA NITROGEN 7 mg/dL (7-18); eGFR NON AFRICAN AMERICAN 53 mL/min (90-120)
[2019-09-17 17:14] LABS: POTASSIUM - SERUM 2.8 mmol/L (3.5-5.1)
[2019-09-17 18:46] LABS: ERYTHROCYTE SEDIMENTATION RATE 34 mm/hr (0-30)
[2019-09-17 19:08] VITALS: BP 127/74
--- NOTE | 2019-09-17 19:08 | NUR ---
PT RESTING IN SEMI FOWLERS POSITION, NO COMPLAINTS AT THIS TIME. URINE SENT TO LAB. WILL CONTINUE TO MONITOR.
[2019-09-17 19:15] LABS: BILIRUBIN NEGATIVE (NEGATIVE); GLUCOSE NEGATIVE (NEGATIVE); KETONE NEGATIVE (NEGATIVE); NITRITE NEGATIVE (NEGATIVE); UROBILINOGEN NORMAL (NORMAL)
--- NOTE | 2019-09-17 23:45 | NUR ---
PT ARRIVED VIA BED WITH VALERI IN ER. PT WALKED WITH ASSISTANCE FROM ER BED TO UNIT BED. CL IN REACH. PT EATING SANDWICH AT THIS TIME. BED IN LOW SIDE RAILS X1. DENIES NEEDS AT THIS TIME. TM
[2019-09-18 01:21] VITALS: BP 122/71; Ht 170.2 cm; Wt 106.4 kg
[2019-09-18 05:25] VITALS: BP 109/54
--- NOTE | 2019-09-18 07:32 | NUR ---
BED ALARM REFUSAL SIGNED PER REQUEST.
--- NOTE | 2019-09-18 07:53 | NUR ---
ALERT AND ORIENTED. LUNGS CLEAR BILATERALLY. HEART SOUNDS S1 AND S2 HEARD IN ALL ARREDONDO. BOWEL SOUNDS ACTIVE X 4. DRSG C/D/I TO RIGHT KNEE. IV TO LFA PATENT WITHOUT REDNESS. REFUSES BED ALARM. FORM ON CHART. DENIES FURTHER NEEDS. BED LOW. CALL COTTO AND PERSONAL ITEMS IN REACH. WILL CONTINEU TO MONITOR.
[2019-09-18 08:00] VITALS: BP 129/74
--- NOTE | 2019-09-18 09:29 | NUR ---
As per Dr. Barlow's orders a Prevena dressing was applied over incision on right knee. Small amount of serosanguinous drainagage noted. There was no odor. Pt tolerated well.
--- NOTE | 2019-09-18 09:33 | NUR ---
PATIENT REQUESTING NICOTINE PATCH. SKY RUTHERFORD PAGED. WAITING CALL BACK.
[2019-09-18 12:42] VITALS: BP 124/72
[2019-09-18 16:00] VITALS: BP 123/71
--- NOTE | 2019-09-18 18:04 | NUR ---
SITTING IN BED EATING DINNER. DENIES NEEDS. WILL CONTINUE TO MONITOR.
--- NOTE | 2019-09-18 19:20 | NUR ---
SITTING UP IN BED. ALERT AND ORIENTED X4. ANXIOUS AND IRRITABLE. RESP IRREG. O2 @ 2L/NC. SIGNED ARMANDO WAIVER AND REFUSES YELLOW GOWN, SOCKS AND ALARM DESPITE HX OF MULTIPLE FALLS. WOUND VAC NOTED TO RT KNEE WITH NO DRAINAGE IN CANISTER. EDEMA NOTED TO BLE. NONPROD COUGH NOTED. SALINE LOCK NOTED TO LT FOREARM IS PINK AND SWOLLEN. IV CATH REMOVED. SR ELEVATED X2. CL IN REACH.
[2019-09-18 20:00] VITALS: BP 112/71
--- NOTE | 2019-09-18 21:30 | NUR ---
22G INSERTED IN LT FOREARM X1 ATTEMPT.
--- NOTE | 2019-09-18 21:51 | NUR ---
MEDICATED WITH VISTARIL FOR C/O INSOMNIA.
--- NOTE | 2019-09-19 03:51 | NUR ---
HAS BEEN UP TO BR TO VOID SEVERAL TIMES TONIGHT AND WAS INCONT ONCE AND COMPLETE LINEN CHANGE WAS PERFORMED.
[2019-09-19 04:00] VITALS: BP 127/67
[2019-09-19 06:19] LABS: BASOPHILS 0.2 % (0-2); EOSINOPHILS 1.7 % (0-7); HEMATOCRIT 36.6 % (36.0-48.0); HEMOGLOBIN 11.6 g/dL (12-16); IMMATURE GRANULOCYTES 0.2 % (0-5); LYMPHOCYTES 29.2 % (15-50); MCHC 31.7 g/dL (31.0-37.0); MEAN PLATELET VOLUME 9.7 fL (7.4-10.4); MONOCYTES 11.7 % (2-11); PLATELET COUNT 432 10x3/uL (130-400); RBC 3.74 10x6/uL (4.00-5.40); RDW 14.3 % (11.5-14.5); WBC 9.4 10x3/uL (4.8-10.8)
[2019-09-19 06:39] LABS: MCV 97.9 fL (80.0-100.0)
[2019-09-19 07:01] LABS: ANION GAP 9.1 mmol/L (8-16); CARBON DIOXIDE 35.8 mmol/L (21.0-32.0); MAGNESIUM - SERUM 1.7 mg/dL (1.8-2.4); PHOSPHOROUS 3.3 mg/dL (2.5-4.9); THYROID STIMULATING HORMONE 0.81 uIU/mL (0.36-3.74)
[2019-09-19 07:10] LABS: POTASSIUM - SERUM 2.9 mmol/L (3.5-5.1)
--- NOTE | 2019-09-19 07:14 | NUR ---
NOTIFIED BY LAB THAT PATIENT'S POTASSIUM IS 2.9. SKY LOZA PAGED. WAITING CALL BACK. WILL TREAT PER PROTOCOL.
--- NOTE | 2019-09-19 07:15 | NUR ---
NOTIFIED BY LAB THAT PATIENTS POTASSIUM 2.9. SKY LOZA PAGED. WAITING CALL BACK. WILL TREAT PER PROTOCOL.
--- NOTE | 2019-09-19 07:16 | NUR ---
REGARDING LAST NOTE. NO ELECTROLYTE PROTOCOL IN PLACE. WAITING CALL BACK FROM SANGEETA LOZA FOR ORDERS.
--- NOTE | 2019-09-19 07:56 | NUR ---
ALERT AND ORIENTED. LUNGS CLEAR BILATERALLY. HEART SOUNDS S1 AND S2 HEARD IN ALL ARREDONDO. BOWEL SOUNDS ACTIVE X 4. WOUND VAC TO RIGHT KNEE C/D/I. DENIES NEEDS. REFUSES FALL PRECAUTIONS. BED LOW. CALL COTTO AND PERSONAL ITEMS IN REACH. WILL CONTINUE TO MONITOR.
[2019-09-19 09:15] VITALS: BP 117/70
--- NOTE | 2019-09-19 11:42 | NUR ---
PATIENT SLEEPING. WILL CONTINUE TO MONITOR.
[2019-09-19 12:36] VITALS: BP 112/63
[2019-09-19 17:01] VITALS: BP 124/74
--- NOTE | 2019-09-19 19:55 | NUR ---
LYING IN BED. ALERT AND ORIENTED X4. ASSISTED UP TO BR TO VOID. GAIT UNSTEADY. ARMANDO WAIVER WAS SIGNED. WOUND VAC NOTED TO RT KNEE WITH NO DRAINGE NOTED. RESP IRREG. SOB AT TIMES. O2 IN USE @ 2L/NC. NONPROD COUGH AT TIMES. NS @ 50 MLHR INFUSING IN LT FOREARM. RATES PAIN IN RT KNEE 8. SR ELEVATED X2. CL IN REACH.
[2019-09-19 20:00] VITALS: BP 108/72
--- NOTE | 2019-09-20 01:05 | NUR ---
LYING IN BED WITH EYES CLOSED. RESP NONLABORED. NO DISTRESS. O2 IN USE. CL IN REACH.
[2019-09-20 04:00] VITALS: BP 133/67
--- NOTE | 2019-09-20 05:19 | NUR ---
MEDICATED WITH NORCO FOR C/O PAIN IN RT KNEE. CL IN REACH.
[2019-09-20 05:48] LABS: ANION GAP 10.3 mmol/L (8-16); CALCIUM 8.7 mg/dL (8.5-10.1); CARBON DIOXIDE 32.3 mmol/L (21.0-32.0); MAGNESIUM - SERUM 1.8 mg/dL (1.8-2.4); PHOSPHOROUS 4.4 mg/dL (2.5-4.9); POTASSIUM - SERUM 3.6 mmol/L (3.5-5.1)
--- NOTE | 2019-09-20 06:25 | NUR ---
LYING IN BED WATCHING TV. NO DISTRESS. CL IN REACH.
[2019-09-20] MEDS ORDERED: BACTRIM DS TAB1 EAC1 PO (07:36)
[2019-09-20] MEDS ORDERED: BAYER CHEWABLE81 MG PO (07:36)
--- NOTE | 2019-09-20 08:34 | NUR ---
PT ALERT X 4. BREATH SOUNDS CLEAR BILAT. NON-PRODUCTIVE COUGH. IV TO LEFT ARM INFILTRATED. PUJA AND WOUND VAC TO RIGHT KNEE, NO OUTPUT. PT SITTING UP IN CHAIR. BED LOW, CALL LIGHT IN REACH. NO OTHER NEEDS AT THIS TIME.
[2019-09-20 09:13] VITALS: BP 141/78
[2019-09-20 09:28] LABS: BASOPHILS 0.2 % (0-2); EOSINOPHILS 1.9 % (0-7); HEMATOCRIT 39.2 % (36.0-48.0); HEMOGLOBIN 12.5 g/dL (12-16); IMMATURE GRANULOCYTES 0.2 % (0-5); LYMPHOCYTES 33.9 % (15-50); MCH 31.3 pg (26.0-34.0); MCHC 31.9 g/dL (31.0-37.0); MCV 98.2 fL (80.0-100.0); MEAN PLATELET VOLUME 9.8 fL (7.4-10.4); MONOCYTES 10.9 % (2-11); NEUTROPHILS 52.9 % (40-80); PLATELET COUNT 482 10x3/uL (130-400); RBC 3.99 10x6/uL (4.00-5.40); RDW 14.4 % (11.5-14.5); WBC 10.3 10x3/uL (4.8-10.8)
[2019-09-20] MEDS ORDERED: NICODERM CQ1 EAC3 TOPICAL (11:38)
[2019-09-20 11:47] VITALS: BP 90/61
--- NOTE | 2019-09-20 12:00 | MORECARE ---
CASE MANAGEMENT DISCHARGE SUMMARY PATIENT: MELANIE RAI UNIT: [id number] ADM DATE: 09/17/19 AGE: 59 : 56 SEX: F ROOM/BED: D.2240 AUTHOR: REZA,DOC PHYSICIAN: REFERRING PHYSICIAN: QUINN BREWSTER MD DATE OF SERVICE: 09/20/19 Discharge Plan Patient Name: MELANIE RAI Facility: [facility]:[place] : 1960 Planned Disposition: Anticipated Discharge Date: Discharge Date: Expected LOS: Initial Reviewer: [email or web address] Initial Review Date: 09/17/2019 Generated: 09/20/19 1:00 pm Comments DCP- Discharge Planning Updated by [email or web address]: Aura Montes on 09/20/19 10:[address] Patient Name: MELANIE RAI Admission Status: ER Accout number: [id number] Admission Date: 09-17-2019 : 1960 Admission Diagnosis:CELLULITIS OF RIGHT LOWER LIMB Attending: IWONA Current LOS: 3 Anticipated DC Date: Planned Disposition: Primary Insurance: [place] [employer] Discharge Planning Comments: CM met with patient at bedside after explaining CM role and obtaining verbal consent. CM discussed availability / needs of home health, REHAB and medical equipment. PATIENT STATES IS CURRENT WITH [facility]. INDIRA SIGNED AND I WILL FAX DC TO [facility]. PATIENT HAS FAMILY THAT WILL OUTDOOR FITNESS TRAINER AT TRANSPORT. SHE IS TO BE DISCHARGED WITH THE [facility] WOUND VAC. CM TO FOLLOW AND ASSIST NEEDED. Optoelectronic Technician: Aura Montes DCPIA - Discharge Planning Initial Assessment Updated by [email or web address]: Aura Montes on 09/20/19 11:55 am * Is the patient Alert and Oriented? Yes * Preadmission Environment Home Alone * ADLs Independent * Community resources currently utilized Home Health * Please name any agencies selected above. [facility] * Additional services required to return to the preadmission environment? No * Can the patient safely return to the preadmission environment? Yes * Has this patient been hospitalized within the prior 30 days at any hospital? No External Providers External Provider: [facility] Next Contact Date: Service Request Date: Service Type: Resolution: Reviewer: Comments: Patient Name: MELANIE RAI Page [phone] at 1200 All edits/amendments must be made on the electronic document DICTATION DATE: 09/20/19 1200 ROOM CLEANER: KIRSTEN 09/20/19 1200 RPT#: [id number] DC DATE: STATUS: ADM IN [facility] [address] [place] [address] END OF REPORT
--- NOTE | 2019-09-20 12:57 | NUR ---
DISCHARGE PAPERWORK SIGNED, ALL QUESTIONS ANSWERED. IV TO RIGHT FOREARM, DC'D, TIP INTACT. ESCORTED OUT VIA WHEELCHAIR.
--- NOTE | 2019-09-21 09:01 | MORECARE ---
CASE MANAGEMENT DISCHARGE SUMMARY PATIENT: MELANIE RAI UNIT: [id number] ADM DATE: 09/17/19 AGE: 59 : 56 SEX: F ROOM/BED: D.2240 AUTHOR: REZA,DOC PHYSICIAN: REFERRING PHYSICIAN: QUINN BREWSTER MD DATE OF SERVICE: 09/21/19 Discharge Plan Patient Name: MELANIE RAI Facility: [facility]:[place] : 1960 Planned Disposition: Anticipated Discharge Date: Discharge Date: 09/20/2019 Expected LOS: Initial Reviewer: [email or web address] Initial Review Date: 09/17/2019 Generated: 09/21/19 10:00 am Comments DCP- Discharge Planning Updated by [email or web address]: Aura Montes on 09/20/19 10:[address] Patient Name: MELANIE RAI Admission Status: ER Accout number: [id number] Admission Date: 09-17-2019 : 1960 Admission Diagnosis:CELLULITIS OF RIGHT LOWER LIMB Attending: IWONA Current LOS: 3 Anticipated DC Date: Planned Disposition: Primary Insurance: [place] PRIVATE OPTIONS [place] Discharge Planning Comments: CM met with patient at bedside after explaining CM role and obtaining verbal consent. CM discussed availability / needs of home health, REHAB and medical equipment. PATIENT STATES IS CURRENT WITH [facility]. INDIRA SIGNED AND I WILL FAX DC TO [place]. PATIENT HAS FAMILY THAT WILL WOOD BLOCK ARTIST AT TRANSPORT. SHE IS TO BE DISCHARGED WITH THE PROVENA WOUND VAC. CM TO FOLLOW AND ASSIST NEEDED. Wirer Helper: Aura Montes DCPIA - Discharge Planning Initial Assessment Updated by [id number]: Aura Montes on 09/20/19 11:55 am * Is the patient Alert and Oriented? Yes * Preadmission Environment Home Alone * ADLs Independent * Community resources currently utilized Home Health * Please name any agencies selected above. [facility] * Additional services required to return to the preadmission environment? No * Can the patient safely return to the preadmission environment? Yes * Has this patient been hospitalized within the prior 30 days at any hospital? No Last DP export: 09/20/19 11:00 am Patient Name: MELANIE RAI Page [id number] at 0901 All edits/amendments must be made on the electronic document DICTATION DATE: 09/21/19899 MEDICAL RECORDS TECH: KIRSTEN 09/21/19899 RPT#: [id number] DC DATE:09/20/19 STATUS: DIS IN [facility] [address] [place] [address] END OF REPORT
== END 2019-09-20 12:58 | disposition home health service (06) | DRG 920 ==
LOC: D.ER 13:45 → D.MS 20:41
PROVIDERS: Family Medicine; ADMIT Family Medicine; ATTEND Family Medicine
DX: L76.82 Other postprocedural complications of skin and subcutaneous tissue (principal); L03.115 Cellulitis of right lower limb; F17.203 Nicotine dependence unspecified, with withdrawal; F41.8 Other specified anxiety disorders; E78.5 Hyperlipidemia, unspecified; I10 Essential (primary) hypertension; J44.9 Chronic obstructive pulmonary disease, unspecified; K21.9 Gastro-esophageal reflux disease without esophagitis; Y83.9 Surgical procedure, unspecified as the cause of abnormal reaction of the patient, or of later complication, without mention of misadventure at the time of the procedure

== ENCOUNTER 2019-09-21 19:30 | Emergency (ER) | payer MEDICAID ==
[~2019-09-21] VITALS: Ht 170.2 cm; Wt 106.1 kg
[~2019-09-21 19:30] MED LIST changes: +BACTRIM DS TAB1 EAC1 PO; +NICODERM CQ1 EAC3 TOPICAL
[2019-09-21 19:45] VITALS: Ht 170.2 cm; Wt 106.1 kg
[2019-09-21 22:17] VITALS: BP 135/84
== END 2019-09-21 22:18 | disposition home or self-care (01) ==
LOC: D.ER 19:30
DX: Z96.651 Presence of right artificial knee joint (principal); G62.9 Polyneuropathy, unspecified; J44.9 Chronic obstructive pulmonary disease, unspecified

== ENCOUNTER 2019-10-10 09:31 | Inpatient (IN) | payer MEDICAID ==
[~2019-10-10] VITALS: Ht 170.2 cm; Wt 103.7 kg
--- NOTE | ~2019-10-10 | HEMODYNAMI ---
PATIENT:MELANIE RAI MEDICAL RECORD: [id number] : 56 LOCATION: [id number] ADMISSION DATE: 10/10/19 Generatedon:10/18/201913:30 Patient name: MELANIE RAI Patient #: [id number] SSN: : 1960 Date of study: 10/18/2019 Page: Of Hemodynamic Procedure Report Patient Data Patient Demographics Procedure consent was obtained First Name: MELANIE Gender: Female Last Name: FREDI : 1960 Middle Initial: MATTHEW Age: 59 year(s) Patient #: [id number] Race: Unknown Additional ID: [id number] Contact details Address: [address] [place] [address] DRIVE State: [facility] Zip code: [address] Past Medical History Allergies Allergen Reaction Date Comments Reported Other allergy 10/18/2019 diclofenac Admission Admission Data Admission Date: 10/10/2019 Admission Time: 23:51 Room #: D.2238 Procedure Procedure Types Cath Procedure Peripheral Cath Diagnostic Procedure PICC PICC Line Placement Procedure Description Procedure Date Procedure Date: 10/18/2019 Procedure Start Time: 13:22 Procedure Staff Name Function Wilfred Cavazos MD Performing Physician GABRIEL PARKS RT Monitor Abrahan Berrios RT Scrub Nellie Victoria RN Nurse Arlette BREAUX RN Nurse Procedure Data Cath Procedure Fluoroscopy Diagnostic fluoroscopy Total fluoroscopy Time: 0.1 time: 0.1 min min Diagnostic fluoroscopy Total fluoroscopy dose: 1 dose: 1 mGy mGy Hemodynamics Rest Pre Cath Intra NCS Post Cath Procedure Log Time Note 13:01:16 GABRIEL SOARES (R) sent for patient. Start room use. 13:01:17 Time tracking: Regular hours (M-F 7:00 - 5:00) 13:01:21 Plan of Care:Hemodynamics will remain stable., Cardiac rhythm will remain stable., Comfort level will be maintained., Respiratory function will remain adequate., Patient/ family verbilizes understanding of procedure., Procedure tolerated without complication., Recovers from procedure without complications.. 13:01:32 Patient received from Med/Surg to IR Alert and oriented. Tansferred to table in Supine position. 13:01:35 Signed procedure consent form obtained from patient. 13:01:36 Warm blankets applied, and chalo hugger turned on for patient comfort. 13:01:36 Correct patient and procedure confirmed by team. 13:01:38 - 13:01:42 H&P Date Dictated: 10/18/2019 Within 30 days and on chart.. 13:01:43 Pre-procedure instructions explained to patient. 13:02:02 Patient allergic to Other allergydiclofenac 13:02:05 Is the patient allergic to Iodine/contrast media? No. 13:02:15 Is patient on blood thinner?Yes 13:02:22 ACC The patient was administered the following blood thiners within the last 24 hours: Judyqujune 13:05:17 Patient diabetic? No. 13:05:26 - 13:05:38 Right Arm was prepped with chlora-prep and draped in sterile fashion. 13:05:39 Alarms reviewed by Josue Shipman 13:05:45 Sharps counted by scrub and verified by Mary Anne 13:05:47 - 13:21:04 Physician arrived 13:21:04 --------ALL STOP TIME OUT------ 13:21:05 Final Timeout: patient, procedure, and site verified with staff and physician. All members of the team are in agreement. 13:21:08 Left Arm site verified by team. 13:22:07 Procedure started. 13:22:07 Full Disclosure recording started 13:24:27 Venous access obtained using ultrasound guidance. 13:27:23 PICC line was trimmed to 41cm and advanced to the superior vena cava.Position verified under fluoroscopy. 13:27:44 Procedure ended.(Physican Out) 13:28:36 Fluoroscopy time 00.10 minutes. 13::39 Fluoroscopy dose: 1 mGy 13::39 Flurop Dose total: 1 13:29:02 Dose Area Product 1 mGy/cm. 13:29:05 Sharps counted by scrub and verified by Mary Anne 13:29:12 Post procedure instruction explained to patient.Patient verbalizes understanding. 13:29:15 Procedure and supply charges have been captured, reviewed, submitted an d are correct. 13:29:34 - 13:29:37 Use device set IR Diagnostic 13:29:38 Kala Jemagatha () opened to sterile field. 13:29:39 Sterile Angiographic Pack opened to sterile field. 13:29:40 Tegaderm 4 x 4 (1626W) opened to sterile field. 13:29:52 PowerPICC 5Fr double lumen catheter opened to sterile field. 13:30:00 - Device Usage Item Name Manufacture Quantity Catalog Hospital Part Current Minimal Lot# / Number Charge Number Stock Stock Serial# Code Kala Kirkpatrick Microtek 1 [id number] 5 (2002S) Medical Inc. Sterile Cardinal 1 [id number] 5 Angiographic Health Pack Tegaderm 4 x 3M 1 [id number] 5 4 (1626W) [facility] 1 [id number] 5 5Fr double lumen catheter Signature Audit [place] Stage Time Signature Unsigned Intra-Procedure 10/18/2019 GABRIEL PARKS RT 1:30:48 PM (R) [facility] [address] [place] [address]
[2019-10-10 10:04] LABS: BASOPHILS 0.1 % (0-2); EOSINOPHILS 0.8 % (0-7); HEMATOCRIT 36.4 % (36.0-48.0); HEMOGLOBIN 12.1 g/dL (12-16); IMMATURE GRANULOCYTES 0.3 % (0-5); LYMPHOCYTES 25.5 % (15-50); MCH 31.9 pg (26.0-34.0); MCHC 33.2 g/dL (31.0-37.0); MEAN PLATELET VOLUME 9.6 fL (7.4-10.4); MONOCYTES 12.8 % (2-11); NEUTROPHILS 60.5 % (40-80); RBC 3.79 10x6/uL (4.00-5.40); RDW 14.6 % (11.5-14.5); WBC 10.4 10x3/uL (4.8-10.8)
[2019-10-10 10:11] LABS: PLATELET COUNT 339 10x3/uL (130-400)
[2019-10-10 10:15] LABS: ANION GAP 12.1 mmol/L (8-16); CALCIUM 9.4 mg/dL (8.5-10.1); CARBON DIOXIDE 28.3 mmol/L (21.0-32.0); CREATININE - SERUM 1.2 mg/dL (0.6-1.3); POTASSIUM - SERUM 3.4 mmol/L (3.5-5.1)
[2019-10-10] MEDS ORDERED: HYDROCODON-ACE1 EA10 PO (10:30)
[2019-10-10 10:37] VITALS: BP 107/67; BMI 36.9
--- NOTE | 2019-10-10 13:53 | NUR ---
PTS L.FA PIV INFILTRATED AND WAS RED AND PAINFUL. D/C WITH CATHETER TIP FULLY INTACT. NEW 22GUAGE INSERTED INTO NEW LOCATION IN L.FA. SECURED WITH TEGADERM AND IV FLUIDS DRIPPING IN.
[2019-10-10 14:42] VITALS: BP 101/55
[2019-10-10 15:24] VITALS: BP 101/55; BMI 34.5
[2019-10-10 15:29] LABS: PROTEIN - BODY FLUID 4.8 G/DL
--- NOTE | 2019-10-10 15:50 | NUR ---
PATIENT IN ROOM. DENIES PAIN. ALERT AND ORIENTED. POST OP VITAL SIGNS TAKEN AND RECORDED WITH TRANSFERRING NURSE. BED LOW POSITION. CALL LIGHT IN REACH. WILL CONTINUE TO MONITOR.
[2019-10-10 15:53] LABS: MACROPHAGES BF 1 %; NEUT - BF 93 %
[2019-10-10 17:57] LABS: ANION GAP 10.8 mmol/L (8-16); CALCIUM 8.7 mg/dL (8.5-10.1); CARBON DIOXIDE 27.2 mmol/L (21.0-32.0)
[2019-10-10 20:00] VITALS: BP 105/58
--- NOTE | 2019-10-11 02:13 | NUR ---
ASSESSED AT THE BEGINNING OF THE SHIFT. PT IS ALERT AND ORIENTED, ABLE TO VERBALIZE NEEDS. SHE HAS A RIGHT KNEE I & D WHICH IS DRESSED AND PUJA WRAPPED. THERE IS ONLY ONE SCD ON THE LEFT LEG. MD WAS CALLED TO HAVE MEDS STARTED AND A NICOTINE PATCH WAS ALSO REQUESTED BUT IT WAS NO REMEMBERED AND PT STATED SHE WOULD WAIT UNTILL MORNING WHEN THE MD CAME RATHER THAN CALL MD AGAIN. HER BLOOD SUGAR DID NOT REQUIRE ANY INSULIN AT 147. AT THIS TIME SHE APPEARS TO BE ASLEEP.
[2019-10-11 04:00] VITALS: BP 120/71
[2019-10-11 05:00] LABS: BASOPHILS 0.1 % (0-2); EOSINOPHILS 0 % (0-7); HEMATOCRIT 30.4 % (36.0-48.0); HEMOGLOBIN 9.8 g/dL (12-16); IMMATURE GRANULOCYTES 0.3 % (0-5); LYMPHOCYTES 15.8 % (15-50); MCH 31.4 pg (26.0-34.0); MCHC 32.2 g/dL (31.0-37.0); MCV 97.4 fL (80.0-100.0); MEAN PLATELET VOLUME 9.8 fL (7.4-10.4); MONOCYTES 9.4 % (2-11); NEUTROPHILS 74.4 % (40-80); PLATELET COUNT 326 10x3/uL (130-400); RBC 3.12 10x6/uL (4.00-5.40); RDW 14.6 % (11.5-14.5); WBC 11.1 10x3/uL (4.8-10.8)
[2019-10-11 05:25] LABS: ANION GAP 8.4 mmol/L (8-16); CALCIUM 8.8 mg/dL (8.5-10.1); CARBON DIOXIDE 30.4 mmol/L (21.0-32.0); POTASSIUM - SERUM 3.8 mmol/L (3.5-5.1)
[2019-10-11 08:13] VITALS: BP 129/57
[2019-10-11 09:21] LABS: BASOPHILS 0 % (0-2); EOSINOPHILS 0 % (0-7); HEMATOCRIT 32.3 % (36.0-48.0); HEMOGLOBIN 10.3 g/dL (12-16); IMMATURE GRANULOCYTES 0.3 % (0-5); LYMPHOCYTES 18.9 % (15-50); MCH 31.2 pg (26.0-34.0); MCHC 31.9 g/dL (31.0-37.0); MCV 97.9 fL (80.0-100.0); MEAN PLATELET VOLUME 9.7 fL (7.4-10.4); MONOCYTES 5.4 % (2-11); NEUTROPHILS 75.4 % (40-80); PLATELET COUNT 350 10x3/uL (130-400); RDW 14.5 % (11.5-14.5); WBC 12.1 10x3/uL (4.8-10.8)
--- NOTE | 2019-10-11 09:23 | NUR ---
SHE IS AWAKE. HER RIGHT LEG IS SWOLLEN, THE KNEE HAS AN PUJA WRAPPED ON IT. SHE HAS A SCD ON THE LEFT LEG. SHE IS REFUSING TO HAVE HER FINGERSTICK DONE. I EXPLAINED TO HER ABOUT GLUCOSE CONTROL, BUT SHE DOES NOT WANT TO HAVE HER FINGER STUCK. THE CALL LIGHT IS WITHIN REACH AND THE BED ALARM IS ON.
[2019-10-11 11:56] VITALS: BP 113/64
[2019-10-11 15:22] VITALS: BP 117/84
--- NOTE | 2019-10-11 15:35 | NUR ---
REMOVED IV, QUESTIONS ANSWERED, PAPERWORK SIGNED. GOING TO [facility]. THE DAUGHTER IS GOING TO FOLLOW THE MANUFACTURING SPECIALIST THERE. SHE LEFT WITH THE [facility] MANUFACTURING SPECIALIST IN A WHEELCHAIR.
[2019-10-11 15:54] VITALS: Ht 170.2 cm; Wt 103.7 kg
[2019-10-11 20:00] VITALS: BP 144/72
[2019-10-12 04:00] VITALS: BP 152/91
[2019-10-12 06:21] LABS: BASOPHILS 0.2 % (0-2); EOSINOPHILS 0.4 % (0-7); HEMATOCRIT 31.2 % (36.0-48.0); HEMOGLOBIN 9.8 g/dL (12-16); IMMATURE GRANULOCYTES 0.8 % (0-5); LYMPHOCYTES 32.2 % (15-50); MCH 30.7 pg (26.0-34.0); MCHC 31.4 g/dL (31.0-37.0); MCV 97.8 fL (80.0-100.0); MEAN PLATELET VOLUME 9.9 fL (7.4-10.4); MONOCYTES 12.3 % (2-11); NEUTROPHILS 54.1 % (40-80); PLATELET COUNT 397 10x3/uL (130-400); RBC 3.19 10x6/uL (4.00-5.40); RDW 14.7 % (11.5-14.5); WBC 11.1 10x3/uL (4.8-10.8)
[2019-10-12 06:33] LABS: ANION GAP 8.7 mmol/L (8-16); CALCIUM 8.9 mg/dL (8.5-10.1); CARBON DIOXIDE 31.2 mmol/L (21.0-32.0); MAGNESIUM - SERUM 2.1 mg/dL (1.8-2.4)
[2019-10-12 06:38] LABS: POTASSIUM - SERUM 2.9 mmol/L (3.5-5.1)
--- NOTE | 2019-10-12 08:48 | NUR ---
RESTING IN BED, NO DISTRESS NOTED, DRESSING TO R KNEE, CONT TO MONITOR PAIN
--- NOTE | 2019-10-12 09:12 | OP ---
PATIENT NAME: MELANIE DAWN MEDICAL RECORD: [id number] :56 LOCATION:D.MS Head2238 ADMISSION DATE:10/10/19 SURGEON: FARHAT SPEARS MD DATE OF OPERATION: 10/10/2019 PREOPERATIVE DIAGNOSIS: Superficial infection of a total knee wound. POSTOPERATIVE DIAGNOSIS: Deep infection of total knee wound. PROCEDURE: Irrigation and debridement of the patient's right knee. SURGEON: Farhat Spears MD RUNNER OUT: ERIC Claire INTRAOPERATIVE COMPLICATIONS: None. SUMMARY OF PATHOLOGIC FINDINGS: While the patient was thought to have superficial infection only dissection showed that it did communicate with the paramedian arthrotomy. INDICATIONS: Ms. Dawn is a 59-year-old female who had a total knee done in an outside facility. This had resulted in substantial pain and loosening of the hardware. She presented for revision. In the immediate days following her revision she fell and split her incision open; however, at the time of that debridement, the paramedian arthrotomy was tight without leakage. Subsequent to that closure, she fell again and again split her knee open, which became infected. It has been treated superficially with a dressing change and aggressive p.o. antibiotics. She returned to the clinic with further draining. She was signed up today for irrigation and closure with Restrata grafting; however, at the time of surgery, the communication thusly was noted. OPERATIVE SUMMARY IN DETAIL: After obtaining the appropriate preoperative orthopedic surgery consent as well as anesthetic consultation, evaluation and clearance, the patient was brought to the operating room and placed on the operating table in supine position. After adequate general laryngeal mask airway was administered, the patient's right upper extremity and shoulder were then prepped and draped in routine sterile fashion. Cultures were taken. The 2 open places were made communicative and then dissection was carried out first with curettage and unfortunately, the patient's bursal area continued to be open and palpably it did communicate with the patient's paramedian arthrotomy. Please note that synovial fluid was taken prior to any of this and sent for sampling. At the time of finding the opening, the decision was made to proceed with an arthrotomy and debridement. The paramedian arthrotomy was extended, pulsatile lavage irrigation was then carried out both into the deep joint as well as into the superficial spaces and recess. A gram of vancomycin and a gram of tobramycin were placed into. The paramedian arthrotomy was then closed with #2 Ethibond by ERIC Claire. The skin was likewise closed with 3-0 Prolene and asby-hda-ydi-near suture with plans to come back and do polyethylene exchange with a more thorough debridement. The patient's polyethylene is a revision stock. Polyethylene was not immediately available for exchange; therefore, she will be admitted, kept on IV antibiotics and brought back to the OR on Monday for a more thorough I and D with polyethylene exchange of this acutely infected revision total knee. She will be placed on broad-spectrum IV antibiotics now and cultures are pending. Please note, after closure, sterile OPERATIVE REPORT [id number] FREDI,CLYDA MATTHEW dressings were applied. The patient was awakened and taken to recovery room in stable condition. All final needle and sponge counts were correct. TRANSINT:[id number] Voice Confirmation ID: [id number] DOCUMENT ID: [id number] TORY LUX, FARHAT CORRALES at 0912 CC: [id number] DICTATION DATE: 10/11/19 1149 STAINED GLASS ARTIST: 10/11/19 2250 ADM IN [facility] [id number] [place] [address]
[2019-10-12 10:44] VITALS: BP 100/68
[2019-10-12 17:43] VITALS: BP 108/63
[2019-10-12 20:00] VITALS: BP 113/69
--- NOTE | 2019-10-12 21:30 | NUR ---
AWAKE,ALERT.NO COMPALITNS AT PRESENT. PUJA WRAP DRESSING INTACT TO RIGHT KNEE.NO DRAINAGE NOTED. O2 @ 3L PER NC ON. NO DISTRESS NOTED. IV TO LEFT WRIST INTACT WITHOUT REDNESS OR EDEMA NOTED. CL IN REACH
[2019-10-13 04:00] VITALS: BP 126/69
[2019-10-13 07:07] LABS: BASOPHILS 0.2 % (0-2); EOSINOPHILS 1.3 % (0-7); HEMATOCRIT 33.3 % (36.0-48.0); HEMOGLOBIN 10.6 g/dL (12-16); IMMATURE GRANULOCYTES 0.7 % (0-5); LYMPHOCYTES 28.9 % (15-50); MCHC 31.8 g/dL (31.0-37.0); MCV 97.4 fL (80.0-100.0); MEAN PLATELET VOLUME 9.5 fL (7.4-10.4); MONOCYTES 15.2 % (2-11); NEUTROPHILS 53.7 % (40-80); PLATELET COUNT 393 10x3/uL (130-400); RBC 3.42 10x6/uL (4.00-5.40); RDW 14.6 % (11.5-14.5); WBC 10.7 10x3/uL (4.8-10.8)
[2019-10-13 07:29] LABS: ANION GAP 9.8 mmol/L (8-16); CALCIUM 9.1 mg/dL (8.5-10.1); CARBON DIOXIDE 31.4 mmol/L (21.0-32.0); MAGNESIUM - SERUM 1.8 mg/dL (1.8-2.4); POTASSIUM - SERUM 3.2 mmol/L (3.5-5.1)
--- NOTE | 2019-10-13 07:48 | NUR ---
I have reviewed this patient and I concur with the Shift Assessment completed by the Licensed Practical Nurse today this shift.
--- NOTE | 2019-10-13 07:55 | NUR ---
RESTING IN BED, NO DISTRESS NOTED, EYES CLOSED, IV INFUSING PER L WRIST, CONT TO MONITOR
[2019-10-13 08:00] VITALS: BP 124/63
--- NOTE | 2019-10-13 13:25 | NUR ---
REFUSING BLOOD SUGARS
[2019-10-13 13:30] VITALS: BP 137/71
[2019-10-13 18:26] VITALS: BP 131/58
[2019-10-13 20:00] VITALS: BP 123/83
--- NOTE | 2019-10-13 21:00 | NUR ---
WATCHING TV QUEITLY WITH NO DISTRESS NOTED. NO COMPLAITNS VOICED. RESP UNALBORED. PUJA WRAP TO RIGHT KNEE INTACT WITHOUT DRAINAGE NOTED.CL IN REACH
[2019-10-14] VITALS: BP 123/71
[2019-10-14 04:00] VITALS: BP 111/79
--- NOTE | 2019-10-14 04:16 | NUR ---
I have reviewed this patient and I concur with the Shift Assessment completed by the Licensed Practical Nurse today this shift.
[2019-10-14 05:17] LABS: ANION GAP 11.6 mmol/L (8-16); CALCIUM 9.4 mg/dL (8.5-10.1); CARBON DIOXIDE 30.4 mmol/L (21.0-32.0); MAGNESIUM - SERUM 1.8 mg/dL (1.8-2.4)
[2019-10-14 05:59] LABS: BASOPHILS 0.2 % (0-2); EOSINOPHILS 1.5 % (0-7); HEMATOCRIT 33.1 % (36.0-48.0); HEMOGLOBIN 10.5 g/dL (12-16); IMMATURE GRANULOCYTES 0.7 % (0-5); LYMPHOCYTES 28.4 % (15-50); MCHC 31.7 g/dL (31.0-37.0); MCV 97.6 fL (80.0-100.0); MEAN PLATELET VOLUME 9.6 fL (7.4-10.4); MONOCYTES 12.9 % (2-11); NEUTROPHILS 56.3 % (40-80); PLATELET COUNT 474 10x3/uL (130-400); RBC 3.39 10x6/uL (4.00-5.40); RDW 14.7 % (11.5-14.5); WBC 12.4 10x3/uL (4.8-10.8)
--- NOTE | 2019-10-14 08:30 | NUR ---
ASSESSMENT PER FLOW SHEET. NPO FOR SURGERY TODAY. PAIN MEDS ORDERED PER MAR WITH SIPS OF WATER. UP TO CHAIR.CALL LIGHT IN REACH.
[2019-10-14 08:41] VITALS: BP 103/71
[2019-10-14 11:45] VITALS: BP 109/60
--- NOTE | 2019-10-14 13:02 | NUR ---
Nutrition follow-up: Pt NPO for TKA today PO intake of regular diet has been 100% of meals labs reviewed Wt: 219# RDN following.
--- NOTE | 2019-10-14 14:20 | NUR ---
PREMEDS ORDERED.TO OR VIA BED
[2019-10-14 17:03] VITALS: BP 127/93
--- NOTE | 2019-10-14 17:07 | NUR ---
BACK FROM PACU VIA BED. DRESSING RIGHT KNEE WITH MINNIMAL DRAINAGE AT BOTTOM.VSS.
--- NOTE | 2019-10-14 19:30 | NUR ---
A&O X 4, PAIN 08/27. DRESSING TO RLE CDI. SCDS REMOVED PER REQUEST, MANUELA GUZMAN IN USE. CTM.
[2019-10-14 20:00] VITALS: BP 117/65
[2019-10-15] VITALS: BP 152/83
[2019-10-15 04:00] VITALS: BP 140/86
[2019-10-15 05:14] LABS: ANION GAP 10.1 mmol/L (8-16); CALCIUM 8.8 mg/dL (8.5-10.1); CARBON DIOXIDE 30.4 mmol/L (21.0-32.0); MAGNESIUM - SERUM 1.7 mg/dL (1.8-2.4); POTASSIUM - SERUM 3.5 mmol/L (3.5-5.1)
[2019-10-15 05:17] LABS: BASOPHILS 0.1 % (0-2); EOSINOPHILS 0.5 % (0-7); HEMATOCRIT 30.3 % (36.0-48.0); HEMOGLOBIN 9.8 g/dL (12-16); IMMATURE GRANULOCYTES 0.5 % (0-5); MCH 31.2 pg (26.0-34.0); MCHC 32.3 g/dL (31.0-37.0); MCV 96.5 fL (80.0-100.0); MEAN PLATELET VOLUME 9.4 fL (7.4-10.4); MONOCYTES 10.4 % (2-11); NEUTROPHILS 72.5 % (40-80); PLATELET COUNT 457 10x3/uL (130-400); RBC 3.14 10x6/uL (4.00-5.40); RDW 14.6 % (11.5-14.5); WBC 15.5 10x3/uL (4.8-10.8)
[2019-10-15 05:29] LABS: CREATININE - SERUM 1.6 mg/dL (0.6-1.3)
--- NOTE | 2019-10-15 06:31 | NUR ---
I have reviewed this patient and I concur with the Shift Assessment completed by the Licensed Practical Nurse today this shift.
[2019-10-15 08:42] VITALS: BP 125/70
--- NOTE | 2019-10-15 08:51 | NUR ---
IV LEAKING LEFT FOREARM. IV DCD WITH CATH TIP INTACT. IV RESITED TO RIGHT FOREARM X1 STICK ASEPTIC TECH, 20G.
[2019-10-15 12:45] VITALS: BP 125/70
[2019-10-15 17:00] VITALS: BP 128/81
[2019-10-15 20:00] VITALS: BP 126/70
--- NOTE | 2019-10-15 21:00 | NUR ---
INCONTINENT VOID IN BED. LINENS CHANGED. PT REPORTS PAIN TO RLE. NO NEEDS VOICED, CTM.
[2019-10-16] VITALS: BP 117/73
--- NOTE | 2019-10-16 01:40 | NUR ---
I have reviewed this patient and I concur with the Shift Assessment completed by the Licensed Practical Nurse today this shift.
[2019-10-16 04:00] VITALS: BP 118/73
[2019-10-16 06:07] LABS: BASOPHILS 0.1 % (0-2); EOSINOPHILS 2.4 % (0-7); HEMATOCRIT 28.6 % (36.0-48.0); HEMOGLOBIN 9.2 g/dL (12-16); IMMATURE GRANULOCYTES 0.4 % (0-5); LYMPHOCYTES 19.6 % (15-50); MCH 31.2 pg (26.0-34.0); MCHC 32.2 g/dL (31.0-37.0); MCV 96.9 fL (80.0-100.0); MEAN PLATELET VOLUME 9.3 fL (7.4-10.4); NEUTROPHILS 65.5 % (40-80); PLATELET COUNT 425 10x3/uL (130-400); RBC 2.95 10x6/uL (4.00-5.40); RDW 14.5 % (11.5-14.5); WBC 12.7 10x3/uL (4.8-10.8)
[2019-10-16 07:48] LABS: CALCIUM 9.4 mg/dL (8.5-10.1); CARBON DIOXIDE 30.2 mmol/L (21.0-32.0); CREATININE - SERUM 1.3 mg/dL (0.6-1.3)
[2019-10-16 07:49] LABS: POTASSIUM - SERUM 3.2 mmol/L (3.5-5.1)
--- NOTE | 2019-10-16 08:15 | NUR ---
CPM REMOVED. PATIENT UP TO BEDSIDE COMMODE. BACK TO BED.
[2019-10-16 09:17] VITALS: BP 113/65
--- NOTE | 2019-10-16 11:00 | NUR ---
DRESSING CHANGED TO RIGHT KNEE WITH ASPETIC TECHNIQUE. MINIMAL AMOUNT OR RED DRAINAGE NOTED.
[2019-10-16 14:41] VITALS: BP 122/79
--- NOTE | 2019-10-16 15:17 | NUR ---
PATIENT IN BED. WITHOUT DISTRESS. UP TO BEDSIDE COMMODE. AND BACK TO BED. DENIES NEEDS. BED LOW POSITION. CALL LIGHT IN REACH. WILL CONTINUE TO MONITOR.
[2019-10-16 17:39] VITALS: BP 118/64
[2019-10-16 20:00] VITALS: BP 112/62
--- NOTE | 2019-10-16 22:00 | NUR ---
CPM REMOVED. PT UP TO BSC, STANDBY ASSIST. REPORTS PAIN OF 9/10. CTM
[2019-10-17] VITALS: BP 121/76
[2019-10-17 04:00] VITALS: BP 100/59
[2019-10-17 04:59] LABS: BASOPHILS 0.2 % (0-2); EOSINOPHILS 4.4 % (0-7); HEMATOCRIT 27.2 % (36.0-48.0); HEMOGLOBIN 8.8 g/dL (12-16); IMMATURE GRANULOCYTES 0.4 % (0-5); LYMPHOCYTES 23.6 % (15-50); MCH 31.1 pg (26.0-34.0); MCHC 32.4 g/dL (31.0-37.0); MCV 96.1 fL (80.0-100.0); MEAN PLATELET VOLUME 9.4 fL (7.4-10.4); MONOCYTES 11.2 % (2-11); NEUTROPHILS 60.2 % (40-80); PLATELET COUNT 452 10x3/uL (130-400); RBC 2.83 10x6/uL (4.00-5.40); RDW 14.2 % (11.5-14.5); WBC 12.5 10x3/uL (4.8-10.8)
[2019-10-17 05:02] LABS: ANION GAP 9.9 mmol/L (8-16); CALCIUM 9.2 mg/dL (8.5-10.1); CARBON DIOXIDE 30.2 mmol/L (21.0-32.0); CREATININE - SERUM 1.3 mg/dL (0.6-1.3); POTASSIUM - SERUM 3.1 mmol/L (3.5-5.1)
--- NOTE | 2019-10-17 05:11 | NUR ---
I have reviewed this patient and I concur with the Shift Assessment completed by the Licensed Practical Nurse today this shift.
--- NOTE | 2019-10-17 07:42 | NUR ---
ALERT AND ORIENTED. LUNGS DIMINISHED BILATERALLY. O2 IN PLACE AT 3LNC. HEART SOUNDS S1 AND S2 HEARD IN ALL ARREDONDO. BOWEL SOUNDS ACTIVE X 4. IV TO RFA PATENT WITHOUT REDNESS. DENIES NEEDS. BED LOW. CALL COTTO AND PERSONAL ITEMS IN REACH. WILL CONTINUE TO MONITOR.
[2019-10-17 09:03] VITALS: BP 113/70
--- NOTE | 2019-10-17 10:30 | NUR ---
WOUND VAC PLACED TO RIGHT KNEE PER ORDER.
--- NOTE | 2019-10-17 12:39 | NUR ---
SITTING IN CHAIR AT BEDSIDE EATING LUNCH. DENIES NEEDS. WILL CONTINUE TO MONITOR.
[2019-10-17 13:00] VITALS: BP 118/61
--- NOTE | 2019-10-17 13:07 | MORECARE ---
CASE MANAGEMENT DISCHARGE SUMMARY PATIENT: MELANIE RAI UNIT: [id number] ADM DATE: 10/10/19 AGE: 59 : 56 SEX: F ROOM/BED: D.2238 AUTHOR: IVETH COBB PHYSICIAN: REFERRING PHYSICIAN: FARHAT SPEARS MD DATE OF SERVICE: 10/17/19 Discharge Plan Patient Name: MELANIE RAI Facility: [facility]:[place] : 1960 Planned Disposition: Home Health Service Anticipated Discharge Date: Discharge Date: Expected LOS: Initial Reviewer: [email or web address] Initial Review Date: 10/11/2019 Generated: 10/17/19 2:07 pm Patient Name: MELANIE RAI Page [phone] at 1307 All edits/amendments must be made on the electronic document DICTATION DATE: 10/17/19 1307 MEDICATION TECH: KIRSTEN 10/17/19 1307 RPT#: [id number] DC DATE: STATUS: ADM IN [facility] [address] [place] [address] END OF REPORT
--- NOTE | 2019-10-17 13:15 | MORECARE ---
CASE MANAGEMENT DISCHARGE SUMMARY PATIENT: MELANIE RAI UNIT: [id number] ADM DATE: 10/10/19 AGE: 59 : 56 SEX: F ROOM/BED: D.2238 AUTHOR: REZA,DOC PHYSICIAN: REFERRING PHYSICIAN: FARHAT SPEARS MD DATE OF SERVICE: 10/17/19 Discharge Plan Patient Name: MELANIE RAI Facility: [facility]:[place] : 1960 Planned Disposition: Home Health Service Anticipated Discharge Date: Discharge Date: Expected LOS: Initial Reviewer: [email or web address] Initial Review Date: 10/11/2019 Generated: 10/17/19 2:15 pm Comments DCP- Discharge Planning Updated by [email or web address]: Aura Montes on 10/17/19 12:[address] Patient Name: MELANIE RAI Admission Status: Elective Accout number: [id number] Admission Date: 10-10-2019 : 1960 Admission Diagnosis:INFECT/INFLM REACTION DUE TO INTERNAL R KNEE PROSTH, IN Attending: FARHAT SPEARS Current LOS: 7 Anticipated DC Date: Planned Disposition: Home Health Service Primary Insurance: [place] PRIVATE OPTIONS [facility] Discharge Planning Comments: CM met with patient at bedside after explaining CM role and obtaining verbal consent. CM discussed availability / needs of home health, REHAB and medical equipment. PATIENT WILL NEED 4 WEEKS OF IV ANTIBIOTICS WHEN DISCHARGED. INDIRA SIGNED FOR [facility] AND [facility] IV. I WILL FAX INITIAL INFORMATION OVER TO BOTH COMPANIES. CM TO FOLLOW AND ASSIST NEEDED. Research Quality Assurance Specialist: Aura Montes DCPIA - Discharge Planning Initial Assessment Updated by [email or web address]: Aura Montes on 10/17/19 1:12 pm * Is the patient Alert and Oriented? Yes * PCP ESQUIVEL * Pharmacy [facility] * Preadmission Environment Home with Family * ADLs Independent * Other Equipment BSC,WALKER * Community resources currently utilized None * Additional services required to return to the preadmission environment? Yes * Can the patient safely return to the preadmission environment? Yes * Has this patient been hospitalized within the prior 30 days at any hospital? No External Providers [facility] [place] Next Contact Date: Service Request Date: Service Type: Resolution: Reviewer: Comments: Last DP export: 10/17/19 12:07 p Patient Name: MELANIE RAI Page [phone] at 1315 All edits/amendments must be made on the electronic document DICTATION DATE: 10/17/191314 CLOTH DESIZING RANGE TENDER: KIRSTEN 10/17/19 1315 RPT#: [id number] DC DATE: STATUS: ADM IN [facility] [address] [place] [address] END OF REPORT
--- NOTE | 2019-10-17 13:22 | MORECARE ---
CASE MANAGEMENT DISCHARGE SUMMARY PATIENT: MELANIE RAI UNIT: [id number] ADM DATE: 10/10/19 AGE: 59 : 56 SEX: F ROOM/BED: D.2238 AUTHOR: REZA,DOC PHYSICIAN: REFERRING PHYSICIAN: FARHAT SPEARS MD DATE OF SERVICE: 10/17/19 Discharge Plan Patient Name: MELANIE RAI Facility: [facility]:[place] : 1960 Planned Disposition: Home Health Service Anticipated Discharge Date: Discharge Date: Expected LOS: Initial Reviewer: [email or web address] Initial Review Date: 10/11/2019 Generated: 10/17/19 2:22 pm Comments DCP- Discharge Planning Updated by [email or web address]: Aura Montes on 10/17/19 12:[address] Patient Name: MELANIE RAI Admission Status: Elective Accout number: [id number] Admission Date: 10-10-2019 : 1960 Admission Diagnosis:INFECT/INFLM REACTION DUE TO INTERNAL R KNEE PROSTH, IN Attending: FARHAT SPEARS Current LOS: 7 Anticipated DC Date: Planned Disposition: Home Health Service Primary Insurance: [place] PRIVATE OPTIONS [facility] Discharge Planning Comments: CM met with patient at bedside after explaining CM role and obtaining verbal consent. CM discussed availability / needs of home health, REHAB and medical equipment. PATIENT WILL NEED 4 WEEKS OF IV ANTIBIOTICS WHEN DISCHARGED. INDIRA SIGNED FOR [facility] AND [facility] IV. I WILL FAX INITIAL INFORMATION OVER TO BOTH COMPANIES. CM TO FOLLOW AND ASSIST NEEDED. Certified Hyperbaric Technician: Aura Montes DCPIA - Discharge Planning Initial Assessment Updated by [id number]: Aura Montes on 10/17/19 1:12 pm * Is the patient Alert and Oriented? Yes * PCP ESQUIVEL * Pharmacy [facility] * Preadmission Environment Home with Family * ADLs Independent * Other Equipment BSC,WALKER * Community resources currently utilized None * Additional services required to return to the preadmission environment? Yes * Can the patient safely return to the preadmission environment? Yes * Has this patient been hospitalized within the prior 30 days at any hospital? No External Providers External Provider: [facility] Next Contact Date: Service Request Date: Service Type: Resolution: Reviewer: Comments: Last DP export: 10/17/19 12:16 p Patient Name: MELANIE RAI Page [phone] at 1322 All edits/amendments must be made on the electronic document DICTATION DATE: 10/17/19 1322 PEARL GLUE DRIER: KIRSTEN 10/17/19 1322 RPT#: [id number] DC DATE: STATUS: ADM IN [facility] [address] [place] [address] END OF REPORT
--- NOTE | 2019-10-17 14:35 | NUR ---
EDUCATION PROVIDED ON NEED FOR UA. HAT IN TOILET.
[2019-10-17 17:36] VITALS: BP 118/73
[2019-10-17 19:08] LABS: AEROBE ID Final report (())
[2019-10-17 20:00] VITALS: BP 109/57
--- NOTE | 2019-10-17 20:00 | NUR ---
PATIENT RESTING IN BED WATCHING TV WITH CPM MACHINE ON. NO S/S OF ACUTE DISTRESS. NO C/O AT THIS TIME. PATIENT IS WEARING 3L OF O2 NASAL CANNULA. PATIENT HAS RIGHT FOREARM IV, 1/2 NORMAL SALINE @ 30 ML/HR. IV IS PATENT WITHOUT REDNESS, SWELLING, OR TENDERNESS. PATIENT IS ON TELEMETRY. PATIENT HAS PREVEENA WOUND VAC TO RIGHT KNEE. PATIENT TOLD ME "I AM NO DIABETIC SO THERE IS NO REASON TO CHECK MY BLOOD SUGAR. THEY ARE GOING TO DO IT ANYWAY DURING MORNING RUN." I INSTRUCTED THE PATIENT THAT WE ARE SIMPLY MAKING SURE THAT HER BLOD SUGARS STAY WITHIN NORMAL LIMITS. PATIENT STILL DECLINED. CALL LIGHT WITHIN REACH. WILL CONTINUE TO MONITOR.
--- NOTE | 2019-10-18 01:09 | NUR ---
I have reviewed this patient and I concur with the Shift Assessment completed by the Licensed Practical Nurse today this shift.
[2019-10-18 04:00] VITALS: BP 116/67
[2019-10-18 05:32] LABS: BASOPHILS 0.2 % (0-2); EOSINOPHILS 4.1 % (0-7); HEMOGLOBIN 8.8 g/dL (12-16); IMMATURE GRANULOCYTES 0.2 % (0-5); LYMPHOCYTES 21.5 % (15-50); MCH 30.6 pg (26.0-34.0); MCHC 31.4 g/dL (31.0-37.0); MCV 97.2 fL (80.0-100.0); MEAN PLATELET VOLUME 9.5 fL (7.4-10.4); MONOCYTES 12.1 % (2-11); NEUTROPHILS 61.9 % (40-80); PLATELET COUNT 490 10x3/uL (130-400); RBC 2.88 10x6/uL (4.00-5.40); RDW 14.3 % (11.5-14.5); WBC 12.8 10x3/uL (4.8-10.8)
[2019-10-18 05:48] LABS: ANION GAP 9.1 mmol/L (8-16); CALCIUM 9.2 mg/dL (8.5-10.1); CARBON DIOXIDE 31.3 mmol/L (21.0-32.0); CREATININE - SERUM 1.5 mg/dL (0.6-1.3); POTASSIUM - SERUM 3.4 mmol/L (3.5-5.1)
--- NOTE | 2019-10-18 07:25 | NUR ---
ALERT AND ORIENTED. LUNGS CLEAR BILATERALLY. HEART SOUNDS S1 AND S2 HEARD IN ALL ARREDONDO. BOWEL SOUNDS ACTIVE X 4. IV TO RFA PATENT WITHOUT REDNESS. WOUND VAC IN PLACE TO RIGHT KNEE. DRSG C/D/I. CURRENTLY USING CPM. DENIES NEEDS. BED LOW. CALL COTTO AND PERSONAL ITEMS IN REACH. WILL CONTINUE TO MONITOR.
--- NOTE | 2019-10-18 09:33 | OP ---
PATIENT NAME: JESUS DAWN MEDICAL RECORD: [id number] :56 LOCATION:D.MS Head2238 ADMISSION DATE:10/10/19 SURGEON: FARHAT SPEARS MD DATE OF OPERATION: 10/14/2019 PREOPERATIVE DIAGNOSIS: Acute infection of the patient's right total knee revision. POSTOPERATIVE DIAGNOSIS: Acute infection of the patient's right total knee revision. PROCEDURE: 1. Revision of total knee arthroplasty, single component - polyethylene exchange. 2. Irrigation and debridement of the knee cavity. SURGEON: Farhat Spears MD FUND ACCOUNTING MANAGER: ERIC Claire and LUIGI Alcazar. INTRAOPERATIVE COMPLICATIONS: None. SUMMARY OF PATHOLOGIC FINDINGS: Essentially none. INDICATIONS: Mrs. Jesus Dawn is an unfortunate 59-year-old female who had a total knee arthroplasty at another institution and eventually showed up at my clinic for revision. At the time of her revision everything looked well; however, in the postoperative setting she fell and opened her skin incision without opening her paramedian arthrotomy. This was copiously irrigated and closed and the appropriate antibiotics were given. She was doing fairly well until she fell again and at the time of this explorative surgery she was found to have communication with her joint itself. That surgery being done last . Arthrotomy was performed then and I&D was carried out with plans to come back for polyethylene exchange as the polyethylene for this component was not immediately available as it is a high-end revision system. OPERATIVE SUMMARY IN DETAIL: After obtaining the appropriate preoperative orthopedic surgery consent as well as anesthetic consultation, evaluation and clearance, the patient was brought to the operating room and placed on the operating table in supine position. After general laryngeal mask airway was administered, tourniquet was placed in the proximal aspect of the patient's right knee. Right lower extremity was then prepped and draped in routine sterile fashion. The leg was elevated and exsanguinated, tourniquet was inflated to 350 mmHg. Previously placed sutures were removed. Paramedian arthrotomy was reopened again and at this point the knee was gently subluxed forward and the polyethylene and post were removed. Having removed this, the knee was copiously irrigated with very dilute Betadine as well as pulsatile lavage irrigation. Hand brush was utilized to brush all aspects anterior, posterior, medially and laterally of every component noted. Curettage was utilized to debride the upper portion of the synovium. Rongeur was also used to debride anything that appeared nonviable. Wound was then pulsatile lavage irrigated some more. Polyethylene was then replaced. The knee was relocated and it was very stable in all planes. At this point, a gram of vancomycin and a gram of tobramycin were placed into the wound. Paramedian arthrotomy was closed with #2 Ethibond by both assistants Live and Nathan including #1 Vicryl, 2-0 OPERATIVE REPORT [id number] JESUS DAWN Vicryl and skin wilma. Sterile dressings were applied. The patient was awakened and taken to the recovery room in stable condition. All final needle and sponge counts were correct. TRANSINT:[id number] Voice Confirmation ID: [id number] DOCUMENT ID: [id number] TORY LUX, FARHAT CORRALES at 0933 CC: [id number] DICTATION DATE: 10/17/19 1328 BLOOD DONOR RECRUITER: 10/17/19 1625 ADM IN [facility] [address] [place] [address]
--- NOTE | 2019-10-18 09:42 | NUR ---
CONSENTS SIGNED FOR PICC PLACEMENT AND IR MADE AWARE.
[2019-10-18 10:00] LABS: BILIRUBIN NEGATIVE (NEGATIVE); GLUCOSE NEGATIVE (NEGATIVE); KETONE NEGATIVE (NEGATIVE); NITRITE NEGATIVE (NEGATIVE); UROBILINOGEN NORMAL (NORMAL)
[2019-10-18 11:05] VITALS: BP 124/73
[2019-10-18] MEDS ORDERED: ELIQUIS2.5 MG PO (12:08)
[2019-10-18] MEDS ORDERED: VANCOMYCIN 1 GM/1 G1 IV (12:08)
[2019-10-18] MEDS ORDERED: HYDROCODON-ACE1 EA10 PO (12:09)
--- NOTE | 2019-10-18 12:51 | NUR ---
PATIENT TAKEN FOR PICC PLACEMENT.
[2019-10-18 13:31] VITALS: BP 121/70
[2019-10-18] MEDS ORDERED: NICODERM CQ1 EAC3 TOPICAL (15:22)
--- NOTE | 2019-10-18 15:26 | NUR ---
IV REMOVED FROM RIGHT WRIST FOR DISCHARGE.
--- NOTE | 2019-10-18 16:04 | NUR ---
DISCHARGE EDUCATION PROVIDED BOTH WRITTEN AND VERBAL. VERBALIZED UNDERSTANDING. DENIES FURTHER QUESTIONS. TELEMETRY REMOVED AND RETURNED TO [facility]. PATIENT WAITING [facility] TO COME TO HOSPITAL AND PROVIDE INSTRUCTIONS ON IV ABX.
--- NOTE | 2019-10-18 18:37 | NUR ---
PATIENT DC HOME WITH ALL BELONGINGS.
--- NOTE | 2019-10-19 18:11 | MORECARE ---
CASE MANAGEMENT DISCHARGE SUMMARY PATIENT: MELANIE RAI UNIT: [id number] ADM DATE: 10/10/19 AGE: 59 : 56 SEX: F ROOM/BED: D.2238 AUTHOR: REZA,DOC PHYSICIAN: REFERRING PHYSICIAN: FARHAT SPEARS MD DATE OF SERVICE: 10/19/19 Discharge Plan Patient Name: MELANIE RAI Facility: [facility]:[place] : 1960 Planned Disposition: Home Health Service Anticipated Discharge Date: Discharge Date: 10/18/2019 Expected LOS: Initial Reviewer: [email or web address] Initial Review Date: 10/11/2019 Generated: 10/19/19 7:11 pm Comments DCP- Discharge Planning Updated by [email or web address]: Aura Montes on 10/17/19 12:[address] Patient Name: MELANIE RAI Admission Status: Elective Accout number: [id number] Admission Date: 10-10-2019 : 1960 Admission Diagnosis:INFECT/INFLM REACTION DUE TO INTERNAL R KNEE PROSTH, IN Attending: FARHAT SPEARS Current LOS: 7 Anticipated DC Date: Planned Disposition: Home Health Service [place]: [place] PR[place] [facility] Discharge Planning Comments: CM met with patient at bedside after explaining CM role and obtaining verbal consent. CM discussed availability / needs of home health, REHAB and medical equipment. PATIENT WILL NEED 4 WEEKS OF IV ANTIBIOTICS WHEN DISCHARGED. INDIRA SIGNED FOR [facility] AND [facility]. I WILL FAX INITIAL INFORMATION OVER TO BOTH COMPANIES. CM TO FOLLOW AND ASSIST NEEDED. Roller Mill Tender: Aura Montes DCPIA - Discharge Planning Initial Assessment Updated by [email or web address]: Aura Montes on 10/17/19 1:12 pm * Is the patient Alert and Oriented? Yes * PCP ESQUIVEL * Pharmacy [facility] * Preadmission Environment Home with Family * ADLs Independent * Other Equipment BSC,WALKER * Community resources currently utilized None * Additional services required to return to the preadmission environment? Yes * Can the patient safely return to the preadmission environment? Yes * Has this patient been hospitalized within the prior 30 days at any hospital? No Coverage Notice Reviewer: [email or web address] - Aura Montes Notice Issued Date-Time: 10/17/2019 13:24 Notice Type: Patient Choice Letter Notice Delivered To: Relationship to Patient: Surveying Crew Stake Runner Name: Delivery Method: HAND - Hand Delivered Noreen Days: Prior Verbal Notification: Recipient Understood Notice: Yes Recipient Signature: Yes Med Rec Note Co-signed by Attending: Coverage Notice Comment: [facility] Last DP export: 10/17/19 12:22 p Patient Name: MELANIE RAI Page [phone] at 1811 All edits/amendments must be made on the electronic document DICTATION DATE: 10/19/191810 LIQUOR BLENDER: KIRSTEN 10/19/191810 RPT#: [id number] DC DATE:10/18/19 STATUS: DIS IN [facility] [address] [place] [address] END OF REPORT
== END 2019-10-18 18:38 | disposition home health service (06) | DRG 467 ==
LOC: D.MS 09:31 → D.OPS 09:31 → D.MS 14:07 → D.OPS 23:49 → D.MS 23:51
PROVIDERS: Anesthesiology; Emergency Medicine; Family Medicine; ADMIT Orthopaedic Surgery; ATTEND Orthopaedic Surgery
PROC: 0S9C3ZZ Drainage of Right Knee Joint, Percutaneous Approach (ICD-10-PCS; principal; 2019-10-10 12:00)
PROC: 0SPC0JZ Removal of Synthetic Substitute from Right Knee Joint, Open Approach (ICD-10-PCS; 2019-10-14)
PROC: 0SRC0J9 Replacement of Right Knee Joint with Synthetic Substitute, Cemented, Open Approach (ICD-10-PCS; 2019-10-14)
DX: T84.53XA Infection and inflammatory reaction due to internal right knee prosthesis, initial encounter (principal); E87.1 Hypo-osmolality and hyponatremia; F17.203 Nicotine dependence unspecified, with withdrawal; J96.11 Chronic respiratory failure with hypoxia; E87.6 Hypokalemia; J44.9 Chronic obstructive pulmonary disease, unspecified; G62.9 Polyneuropathy, unspecified; E78.5 Hyperlipidemia, unspecified; G25.81 Restless legs syndrome; M79.7 Fibromyalgia; M19.90 Unspecified osteoarthritis, unspecified site; F31.9 Bipolar disorder, unspecified; F41.8 Other specified anxiety disorders; G89.29 Other chronic pain

== ENCOUNTER → 2019-10-21 20:43 | Outpatient (CLI) | payer MEDICAID ==
[2019-10-11 15:54] VITALS: BMI 34.4
[~2019-10-21 20:43] MED LIST changes: +HYDROCODON-ACE1 EA10 PO; +VANCOMYCIN 1 GM/1 G1 IV
[2019-10-21 22:08] LABS: BASOPHILS 0.4 % (0-2); EOSINOPHILS 4.6 % (0-7); HEMOGLOBIN 9.5 g/dL (12-16); IMMATURE GRANULOCYTES 0.2 % (0-5); LYMPHOCYTES 22.6 % (15-50); MCH 31.1 pg (26.0-34.0); MCHC 31.7 g/dL (31.0-37.0); MCV 98.4 fL (80.0-100.0); MEAN PLATELET VOLUME 10.4 fL (7.4-10.4); MONOCYTES 11.6 % (2-11); NEUTROPHILS 60.6 % (40-80); PLATELET COUNT 558 10x3/uL (130-400); RBC 3.05 10x6/uL (4.00-5.40); RDW 14.7 % (11.5-14.5); WBC 11.3 10x3/uL (4.8-10.8)
[2019-10-21 22:27] LABS: C-REACTIVE PROTEIN 8.9 mg/dL (0.0-0.9); CREATININE - SERUM 1.4 mg/dL (0.6-1.3); VANCOMYCIN - TROUGH 19.3 ug/mL (10.0-20.0)
[2019-10-21 23:09] LABS: ERYTHROCYTE SEDIMENTATION RATE 108 mm/hr (0-30)
== END | disposition home or self-care (01) ==
LOC: D.LABREF 20:43
PROVIDERS: ATTEND Orthopaedic Surgery
DX: Z47.1 Aftercare following joint replacement surgery (principal); Z45.2 Encounter for adjustment and management of vascular access device; C44.90 Unspecified malignant neoplasm of skin, unspecified

== ENCOUNTER → 2019-10-28 18:31 | Outpatient (CLI) | payer MEDICAID ==
[2019-10-11 15:54] VITALS: BMI 34.4
[2019-10-28 18:53] LABS: BASOPHILS 0.2 % (0-2); EOSINOPHILS 4.9 % (0-7); HEMATOCRIT 32.1 % (36.0-48.0); HEMOGLOBIN 9.9 g/dL (12-16); IMMATURE GRANULOCYTES 0.1 % (0-5); LYMPHOCYTES 29.4 % (15-50); MCH 30.1 pg (26.0-34.0); MCHC 30.8 g/dL (31.0-37.0); MCV 97.6 fL (80.0-100.0); MONOCYTES 14.9 % (2-11); NEUTROPHILS 50.5 % (40-80); PLATELET COUNT 462 10x3/uL (130-400); RBC 3.29 10x6/uL (4.00-5.40); RDW 14.8 % (11.5-14.5)
[2019-10-28 19:19] LABS: C-REACTIVE PROTEIN 3.6 mg/dL (0.0-0.9); CREATININE - SERUM 1.6 mg/dL (0.6-1.3); VANCOMYCIN - TROUGH 28.3 ug/mL (10.0-20.0)
[2019-10-28 20:08] LABS: ERYTHROCYTE SEDIMENTATION RATE 70 mm/hr (0-30)
== END | disposition home or self-care (01) ==
LOC: D.LABREF 18:31
PROVIDERS: ATTEND Orthopaedic Surgery
DX: Z47.1 Aftercare following joint replacement surgery (principal); C44.90 Unspecified malignant neoplasm of skin, unspecified

== ENCOUNTER → 2019-11-04 16:35 | Outpatient (CLI) | payer MEDICAID ==
[2019-10-11 15:54] VITALS: BMI 34.4
[2019-11-04 17:05] LABS: BASOPHILS 0.2 % (0-2); EOSINOPHILS 4.9 % (0-7); HEMATOCRIT 32.7 % (36.0-48.0); HEMOGLOBIN 10.4 g/dL (12-16); IMMATURE GRANULOCYTES 0.2 % (0-5); LYMPHOCYTES 31.8 % (15-50); MCH 30.1 pg (26.0-34.0); MCHC 31.8 g/dL (31.0-37.0); MCV 94.8 fL (80.0-100.0); MEAN PLATELET VOLUME 9.9 fL (7.4-10.4); MONOCYTES 11.7 % (2-11); NEUTROPHILS 51.2 % (40-80); RBC 3.45 10x6/uL (4.00-5.40); RDW 14.8 % (11.5-14.5); WBC 9.6 10x3/uL (4.8-10.8)
[2019-11-04 17:06] LABS: PLATELET COUNT 329 10x3/uL (130-400)
[2019-11-04 17:53] LABS: ALBUMIN 3.4 g/dL (3.4-5.0); ANION GAP 11.2 mmol/L (8-16); BILIRUBIN - TOTAL 0.42 mg/dL (0.2-1.3); C-REACTIVE PROTEIN 2.7 mg/dL (0.0-0.9); CALCIUM 9.3 mg/dL (8.5-10.1); CARBON DIOXIDE 33.3 mmol/L (21.0-32.0); CREATININE - SERUM 1.3 mg/dL (0.6-1.3); POTASSIUM - SERUM 3.5 mmol/L (3.5-5.1); PROTEIN - SERUM 7.2 g/dL (6.4-8.2); VANCOMYCIN - TROUGH 19.1 ug/mL (10.0-20.0)
[2019-11-04 18:00] LABS: ERYTHROCYTE SEDIMENTATION RATE 8 mm/hr (0-30)
== END | disposition home or self-care (01) ==
LOC: D.LABREF 16:35
PROVIDERS: ATTEND Family Medicine
DX: C44.90 Unspecified malignant neoplasm of skin, unspecified (principal); T84.53XA Infection and inflammatory reaction due to internal right knee prosthesis, initial encounter; T84.89XA Other specified complication of internal orthopedic prosthetic devices, implants and grafts, initial encounter; Z79.2 Long term (current) use of antibiotics

== ENCOUNTER → 2019-11-26 18:12 | Outpatient (CLI) | payer MEDICAID ==
[2019-10-11 15:54] VITALS: BMI 34.4
== END | disposition home or self-care (01) ==
LOC: D.LABREF 18:12
PROVIDERS: ATTEND Orthopaedic Surgery
DX: M17.12 Unilateral primary osteoarthritis, left knee (principal)

== ENCOUNTER 2019-12-08 17:56 | Emergency (ER) | payer MEDICAID ==
[2019-12-08 18:21] VITALS: Ht 170.2 cm
[2019-12-08] MEDS ORDERED: KEFLEX500 MG PO (21:30)
[2019-12-08 21:52] VITALS: BP 111/89
== END 2019-12-08 21:52 | disposition home or self-care (01) ==
LOC: D.ER 17:56
DX: S39.012A Strain of muscle, fascia and tendon of lower back, initial encounter (principal); W01.0XXA Fall on same level from slipping, tripping and stumbling without subsequent striking against object, initial encounter; S50.01XA Contusion of right elbow, initial encounter; S80.01XA Contusion of right knee, initial encounter; S81.011A Laceration without foreign body, right knee, initial encounter; S51.012A Laceration without foreign body of left elbow, initial encounter; J44.9 Chronic obstructive pulmonary disease, unspecified

== ENCOUNTER 2019-12-10 11:44 | Inpatient (IN) | payer MEDICAID ==
[~2019-12-10] VITALS: Ht 170.2 cm; Wt 102.5 kg
[~2019-12-10 11:44] MED LIST changes: +KEFLEX500 MG PO
--- NOTE | 2019-12-10 12:10 | NUR ---
ARRIVED VIA WC. NO ACUTE DISTRESS NOTED. UPON ENTERING THE ROOM THE PATIENT WAS TALKING ON HER PHONE AND USING THE RESTROOM. CONTINUING TO MONITOR
[2019-12-10 12:45] LABS: BASOPHILS 0.2 % (0-2); EOSINOPHILS 1.5 % (0-7); HEMATOCRIT 35.9 % (36.0-48.0); IMMATURE GRANULOCYTES 0.4 % (0-5); LYMPHOCYTES 24.2 % (15-50); MCH 28.5 pg (26.0-34.0); MCHC 33.4 g/dL (31.0-37.0); MCV 85.3 fL (80.0-100.0); MEAN PLATELET VOLUME 8.9 fL (7.4-10.4); MONOCYTES 7.6 % (2-11); NEUTROPHILS 66.1 % (40-80); RBC 4.21 10x6/uL (4.00-5.40); RDW 14.5 % (11.5-14.5); WBC 16.8 10x3/uL (4.8-10.8)
[2019-12-10 12:48] LABS: PLATELET COUNT 572 10x3/uL (130-400)
[2019-12-10 12:57] VITALS: BP 117/73; BMI 35.5
[2019-12-10 13:01] LABS: APTT 35.2 SECONDS (22.8-39.4); PROTIME 13.1 SECONDS (11.6-15.0)
[2019-12-10 13:08] LABS: ALBUMIN 3.5 g/dL (3.4-5.0); BILIRUBIN - TOTAL 0.44 mg/dL (0.2-1.3); CALCIUM 8.8 mg/dL (8.5-10.1); CARBON DIOXIDE 30.2 mmol/L (21.0-32.0); CREATININE - SERUM 1.4 mg/dL (0.6-1.3); PROTEIN - SERUM 7.9 g/dL (6.4-8.2)
[2019-12-10 13:16] LABS: ANION GAP 14.6 mmol/L (8-16)
[2019-12-10 13:17] LABS: POTASSIUM - SERUM 1.8 mmol/L (3.5-5.1)
--- NOTE | 2019-12-10 13:41 | NUR ---
RECEIVED CRITICAL LAB VALUE FROM LAB: POTASSIUM 1.8 AND CHLORIDE 85. ELECTROLYTE PROTOCOLE FOLLOWED. MELVIN NOTIFIED. CONTINUING TO MONITOR
[2019-12-10 14:44] LABS: MAGNESIUM - SERUM 1.4 mg/dL (1.8-2.4); THYROID STIMULATING HORMONE 0.97 uIU/mL (0.36-3.74)
[2019-12-10 20:00] VITALS: BP 119/59
--- NOTE | 2019-12-10 20:00 | NUR ---
ALERT RESTING IN BED, DRESSING INTACT TO LEFT KNEE, REQUESTING PAIN PILL, SEE SHIFT ASSESSMENT CALL LIGHT IN REACH
[2019-12-11] VITALS: BP 120/65
--- NOTE | 2019-12-11 01:30 | NUR ---
POTASSIUM NOW AT 5.0, STOPPED IV FLUIDS WITH POTASSIUM AT THIS TIME, LABS TO RECHECKED IN AM
[2019-12-11 04:00] VITALS: BP 100/48
[2019-12-11 06:44] LABS: BASOPHILS 0.2 % (0-2); EOSINOPHILS 2.6 % (0-7); HEMATOCRIT 33.1 % (36.0-48.0); HEMOGLOBIN 11.2 g/dL (12-16); IMMATURE GRANULOCYTES 0.2 % (0-5); LYMPHOCYTES 23.7 % (15-50); MCH 28.6 pg (26.0-34.0); MCHC 33.8 g/dL (31.0-37.0); MCV 84.7 fL (80.0-100.0); MEAN PLATELET VOLUME 9.1 fL (7.4-10.4); MONOCYTES 11.6 % (2-11); NEUTROPHILS 61.7 % (40-80); PLATELET COUNT 520 10x3/uL (130-400); RBC 3.91 10x6/uL (4.00-5.40); RDW 14.5 % (11.5-14.5)
--- NOTE | 2019-12-11 07:15 | NUR ---
REC'D IN BED WITH EYES OPEN WATCHING TV. RESP EVEN AND UNLABORED WITH NO DISTRESS NOTED. CAN EXPRESS NEEDS AND WANTS. MO C/O NOTED. ASSESSMENT COMPLETED. C/L IN REACH AT BEDSIDE.
[2019-12-11 07:20] LABS: BILIRUBIN - TOTAL 0.37 mg/dL (0.2-1.3); CALCIUM 9.1 mg/dL (8.5-10.1); CARBON DIOXIDE 30.4 mmol/L (21.0-32.0); CREATININE - SERUM 1.1 mg/dL (0.6-1.3); PROTEIN - SERUM 6.9 g/dL (6.4-8.2)
[2019-12-11 07:24] LABS: MAGNESIUM - SERUM 1.8 mg/dL (1.8-2.4)
[2019-12-11 07:28] LABS: POTASSIUM - SERUM 2.4 mmol/L (3.5-5.1)
[2019-12-11 09:08] VITALS: BP 124/62
[2019-12-11 09:41] LABS: BILIRUBIN NEGATIVE (NEGATIVE); KETONE NEGATIVE (NEGATIVE); NITRITE NEGATIVE (NEGATIVE); UROBILINOGEN NORMAL mg/dL (< 2)
--- NOTE | 2019-12-11 10:22 | NUR ---
WAS MEDICATED WITH NORCO AT THIS TIME FOR C/O PAIN RATING 7/10 ON PAIN SCALE. C/L IN REACH AT BEDSIDE
[2019-12-11 12:14] VITALS: BP 108/62
--- NOTE | 2019-12-11 12:55 | NUR ---
PATIENT IN BED. LAB DRAWING BLOOD IN ROOM. DENIES ANY NEEDS AT THIS TIME. FREE FROM SIGNS OF DISTRESS. WILL CONTINUE TO MONITOR THROUGHTOUT THE DAY.
--- NOTE | 2019-12-11 13:12 | NUR ---
CALL WAS PLACED TO DR. MARTE ABOUT MAG ORDERS THAT HE ORDERED IV X 1 DOSE WHEN PT IS ALEADY BEENING COVERED BY ELECTROLYTE PROTOCOL. WAS INFORMED THAT SINCE PT IS BEING COVER BY ELECTROLYTE PROTOCOL TO DC IV. C/L IN REACH AT BEDSIDE.
[2019-12-11 14:10] VITALS: Ht 170.2 cm; Wt 102.5 kg
--- NOTE | 2019-12-11 15:17 | NUR ---
UPDATE GIVEN TO DAUGHTER AT THIS TIME.
[2019-12-11 17:07] VITALS: BP 153/77
[2019-12-11 19:34] LABS: T4 THYROXIN - FREE 0.94 ng/dL (0.76-1.46); THYROID STIMULATING HORMONE 0.67 uIU/mL (0.36-3.74)
[2019-12-11 20:00] VITALS: BP 109/58
[2019-12-12] VITALS: BP 118/64
[2019-12-12 04:00] VITALS: BP 103/51
[2019-12-12 06:27] LABS: BASOPHILS 0.2 % (0-2); EOSINOPHILS 1.5 % (0-7); HEMATOCRIT 31.3 % (36.0-48.0); HEMOGLOBIN 10.2 g/dL (12-16); IMMATURE GRANULOCYTES 0.2 % (0-5); LYMPHOCYTES 28.3 % (15-50); MCH 27.8 pg (26.0-34.0); MCHC 32.6 g/dL (31.0-37.0); MCV 85.3 fL (80.0-100.0); MEAN PLATELET VOLUME 9.1 fL (7.4-10.4); MONOCYTES 10.8 % (2-11); PLATELET COUNT 531 10x3/uL (130-400); RBC 3.67 10x6/uL (4.00-5.40); RDW 14.6 % (11.5-14.5)
[2019-12-12 07:29] LABS: ALBUMIN 2.8 g/dL (3.4-5.0); ANION GAP 12.2 mmol/L (8-16); BILIRUBIN - TOTAL 0.22 mg/dL (0.2-1.3); CALCIUM 9.2 mg/dL (8.5-10.1); CARBON DIOXIDE 26.8 mmol/L (21.0-32.0); CREATININE - SERUM 1.1 mg/dL (0.6-1.3); MAGNESIUM - SERUM 1.9 mg/dL (1.8-2.4); PROTEIN - SERUM 6.7 g/dL (6.4-8.2)
[2019-12-12 09:25] VITALS: BP 124/68
[2019-12-12 13:10] VITALS: BP 121/80
[2019-12-12 17:48] VITALS: BP 117/74
[2019-12-13 04:00] VITALS: BP 131/76; BP 177/84
[2019-12-13 06:44] LABS: BASOPHILS 0.2 % (0-2); EOSINOPHILS 2.3 % (0-7); HEMATOCRIT 33.5 % (36.0-48.0); IMMATURE GRANULOCYTES 0.2 % (0-5); LYMPHOCYTES 30.6 % (15-50); MCH 28.6 pg (26.0-34.0); MCHC 32.8 g/dL (31.0-37.0); MEAN PLATELET VOLUME 9.3 fL (7.4-10.4); MONOCYTES 11.5 % (2-11); NEUTROPHILS 55.2 % (40-80); PLATELET COUNT 587 10x3/uL (130-400); RBC 3.85 10x6/uL (4.00-5.40); WBC 10.6 10x3/uL (4.8-10.8)
[2019-12-13 07:11] LABS: ALBUMIN 2.9 g/dL (3.4-5.0); ANION GAP 12.8 mmol/L (8-16); BILIRUBIN - TOTAL 0.19 mg/dL (0.2-1.3); CALCIUM 9.5 mg/dL (8.5-10.1); CARBON DIOXIDE 26.7 mmol/L (21.0-32.0); CREATININE - SERUM 1.1 mg/dL (0.6-1.3); PROTEIN - SERUM 6.8 g/dL (6.4-8.2)
[2019-12-13 07:12] LABS: POTASSIUM - SERUM 3.5 mmol/L (3.5-5.1)
[2019-12-13] MEDS ORDERED: ALDACTONE25 MG PO (10:35)
[2019-12-13] MEDS ORDERED: K-DUR20 MEQ PO (10:36)
[2019-12-13] MEDS ORDERED: MUPIROCIN22 GM TOPICAL (10:37)
[2019-12-13] MEDS ORDERED: NIZORAL 2 % SH120 ML TOPICAL (10:38)
[2019-12-13 10:43] VITALS: BP 127/73
[2019-12-13 13:03] VITALS: BP 130/70
--- NOTE | 2019-12-13 13:28 | MORECARE ---
CASE MANAGEMENT DISCHARGE SUMMARY PATIENT: MELANIE RAI UNIT: [id number] ADM DATE: 12/10/19 AGE: 59 : 56 SEX: F ROOM/BED: D.2206 AUTHOR: IVETH COBB PHYSICIAN: REFERRING PHYSICIAN: MCKAY ESQUIVEL MD DATE OF SERVICE: 12/13/19 Discharge Plan Patient Name: MELANIE RAI Facility: [facility]:[place] : 1960 Planned Disposition: Home Anticipated Discharge Date: Discharge Date: Expected LOS: Initial Reviewer: [email or web address] Initial Review Date: 12/10/2019 Generated: 12/13/19 2:27 pm DCPIA - Discharge Planning Initial Assessment Updated by [email or web address]: Kelsey Capellan on 12/13/19 1:25 pm * Is the patient Alert and Oriented? Yes * How many steps to enter\exit or inside your home? RAMP * PCP SIERRA * Pharmacy [facility] * Preadmission Environment Home with Family * ADLs Independent * Equipment Bedside Commode Other Walker * Other Equipment BEDSIDE TABLE * List name and contact numbers for known caregivers / representatives who currently or will assist patient after discharge: JUNE COUNTS INCLUDE 234 BEDS AT [facility] [phone] * Verbal permission to speak to the caregivers and representatives has been obtained from the patient. N/A * Community resources currently utilized None * Please name any agencies selected above. [facility] * Additional services required to return to the preadmission environment? No * Can the patient safely return to the preadmission environment? Yes * Has this patient been hospitalized within the prior 30 days at any hospital? No Patient Name: MELANIE RAI Page [phone] at 1328 All edits/amendments must be made on the electronic document DICTATION DATE: 12/13/19 1327 CARPENTER APPRENTICE: KIRSTEN 12/13/19 1327 RPT#: [id number] DC DATE: STATUS: ADM IN [facility] [address] [place] [address] END OF REPORT
--- NOTE | 2019-12-13 13:38 | MORECARE ---
CASE MANAGEMENT DISCHARGE SUMMARY PATIENT: MELANIE RAI UNIT: [id number] ADM DATE: 12/10/19 AGE: 59 : 56 SEX: F ROOM/BED: D.2206 AUTHOR: IVETH COBB PHYSICIAN: REFERRING PHYSICIAN: MCKAY ESQUIVEL MD DATE OF SERVICE: 12/13/19 Discharge Plan Patient Name: MELANIE RAI Facility: [facility]:[place] : 1960 Planned Disposition: Home Anticipated Discharge Date: Discharge Date: Expected LOS: Initial Reviewer: [email or web address] Initial Review Date: 12/10/2019 Generated: 12/13/19 2:37 pm Comments DCP- Discharge Planning Updated by [email or web address]: Kelsey Capellan on 12/13/19 12:[address] Patient Name: MELANIE RAI Admission Status: Elective Accout number: [id number] Admission Date: 12-10-2019 : 1960 Admission Diagnosis:HYPOKALEMIA Attending: MCKAY ESQUIVEL Current LOS: 3 Anticipated DC Date: Planned Disposition: Home Primary Insurance: [place] [employer] Discharge Planning Comments: CM met with patient to complete initial dc planning assessment. CM educated patient on the CM role and verbal consent given by patient to complete assessment. Patient lives at home with her friends where she is independent at home. At discharge patient plans to return home and feels this is a safe discharge. She plans on driving herself home. She stated that she felt safe. She states that she is independent with her care. She has her walker at her bedside and her car is out front. She has a bedside commode and table at home. She does have a daughter that could possibly drive her home. I expressed my concern about her safety and driving herself home. She dannielle got a little upset I questioned her. I told her that the MD would be the one to give her the blessing to drive herself home. She will have house calls. Patient denied known discharge needs at this time. CM will continue to follow and will assist as needed with dc plans/needs. Resist Coater Developer: Kelsey Capellan DCPIA - Discharge Planning Initial Assessment Updated by [email or web address]: Kelsey Capellan on 12/13/19 1:25 pm * Is the patient Alert and Oriented? Yes * How many steps to enter\exit or inside your home? RAMP * PCP ESQUIVEL * Pharmacy [facility] * Preadmission Environment Home with Family * ADLs Independent * Equipment Bedside Commode Other Walker * Other Equipment BEDSIDE TABLE * List name and contact numbers for known caregivers / representatives who currently or will assist patient after discharge: JUNE [facility] [phone] * Verbal permission to speak to the caregivers and representatives has been obtained from the patient. N/A * Community resources currently utilized None * Please name any agencies selected above. [facility] * Additional services required to return to the preadmission environment? No * Can the patient safely return to the preadmission environment? Yes * Has this patient been hospitalized within the prior 30 days at any hospital? No Last DP export: 12/13/19 12:28 p Patient Name: MELANIE RAI Page [phone] at 1338 All edits/amendments must be made on the electronic document DICTATION DATE: 12/13/197 HULL GRINDER: KIRSTEN 12/13/19 1337 RPT#: [id number] DC DATE: STATUS: ADM IN [facility] [address] [place] [address] END OF REPORT
--- NOTE | 2019-12-13 15:01 | MORECARE ---
CASE MANAGEMENT DISCHARGE SUMMARY PATIENT: MELANIE RAI UNIT: [id number] ADM DATE: 12/10/19 AGE: 59 : 56 SEX: F ROOM/BED: D.2206 AUTHOR: REZA,DOC PHYSICIAN: REFERRING PHYSICIAN: MCKAY ESQUIVEL MD DATE OF SERVICE: 12/13/19 Discharge Plan Patient Name: MELANIE RAI Facility: [facility]:[place] : 1960 Planned Disposition: Home Anticipated Discharge Date: Discharge Date: Expected LOS: Initial Reviewer: [email or web address] Initial Review Date: 12/10/2019 Generated: 12/13/19 4:01 pm Comments DCP- Discharge Planning Updated by [email or web address]: Kelsey Capellan on 12/13/19 1:[address] DAVIS SAID THE PATIENT COULD DRIVE HERSELF HOME AFTER 1730 BECAUSE SHE TOOK A PAIN PILL AT 1330 DCP- Discharge Planning Updated by [email or web address]: Kelsey Capellan on 12/13/19 12:[address] Patient Name: MELANIE RAI Admission Status: Elective Accout number: [id number] Admission Date: 12-10-2019 : 1960 Admission Diagnosis:HYPOKALEMIA Attending: MCKAY ESQUIVEL Current LOS: 3 Anticipated DC Date: Planned Disposition: Home Primary Insurance: [place] [employer] [facility] Discharge Planning Comments: CM met with patient to complete initial dc planning assessment. CM educated patient on the CM role and verbal consent given by patient to complete assessment. Patient lives at home with her friends where she is independent at home. At discharge patient plans to return home and feels this is a safe discharge. She plans on driving herself home. She stated that she felt safe. She states that she is independent with her care. She has her walker at her bedside and her car is out front. She has a bedside commode and table at home. She does have a daughter that could possibly drive her home. I expressed my concern about her safety and driving herself home. She dannielle got a little upset I questioned her. I told her that the MD would be the one to give her the blessing to drive herself home. She will have house calls. Patient denied known discharge needs at this time. CM will continue to follow and will assist as needed with dc plans/needs. Wafer Fabrication Technician: Kelsey Capellan DCPIA - Discharge Planning Initial Assessment Updated by [email or web address]: Kelsey Capellan on 12/13/19 1:25 pm * Is the patient Alert and Oriented? Yes * How many steps to enter\exit or inside your home? RAMP * PCP ESQUIVEL * Pharmacy [facility] * Preadmission Environment Home with Family * ADLs Independent * Equipment Bedside Commode Other Walker * Other Equipment BEDSIDE TABLE * List name and contact numbers for known caregivers / representatives who currently or will assist patient after discharge: JUNE COUNTS INCLUDE 234 BEDS AT [facility] [phone] * Verbal permission to speak to the caregivers and representatives has been obtained from the patient. N/A * Community resources currently utilized None * Please name any agencies selected above. [facility] * Additional services required to return to the preadmission environment? No * Can the patient safely return to the preadmission environment? Yes * Has this patient been hospitalized within the prior 30 days at any hospital? No Last DP export: 12/13/19 12:38 p Patient Name: MELANIE RAI Page [phone] at 1501 All edits/amendments must be made on the electronic document DICTATION DATE: 12/13/19 150 LABOR RELATIONS ANALYST: KIRSTEN 12/13/19 150 RPT#: [id number] DC DATE: STATUS: ADM IN [facility] [address] [place] [address] END OF REPORT
--- NOTE | 2019-12-13 17:47 | NUR ---
DISCHARGE TEACHING COMPLETE. NO FURTHER QUESTIONS. IV CATH REMOVED. CATH TIP INTACT. BELONGINGS GATHERED. PATIENT LEFT FLOOR VIA WHEELCHAIR TO HOME.
--- NOTE | 2019-12-16 08:49 | MORECARE ---
CASE MANAGEMENT DISCHARGE SUMMARY PATIENT: MELANIE RAI UNIT: [id number] ADM DATE: 12/10/19 AGE: 59 : 56 SEX: F ROOM/BED: D.2209 AUTHOR: REZA,DOC PHYSICIAN: REFERRING PHYSICIAN: MCKAY ESQUIVEL MD DATE OF SERVICE: 12/16/19 Discharge Plan Patient Name: MELANIE RAI Facility: [facility]:[place] : 1960 Planned Disposition: Home Anticipated Discharge Date: Discharge Date: 12/13/2019 Expected LOS: Initial Reviewer: [email or web address] Initial Review Date: 12/10/2019 Generated: 12/16/19 9:48 am Comments DCP- Discharge Planning Updated by [email or web address]: Kelsey Capellan on 12/13/19 1:[address] DAVIS SAID THE PATIENT COULD DRIVE HERSELF HOME AFTER 1730 BECAUSE SHE TOOK A PAIN PILL AT 1330 DCP- Discharge Planning Updated by [email or web address]: Kelsey Capellan on 12/13/19 12:[address] Patient Name: MELANIE RAI Admission Status: Elective Accout number: [id number] Admission Date: 12-10-2019 : 1960 Admission Diagnosis:HYPOKALEMIA Attending: MCKAY ESQUIVEL Current LOS: 3 Anticipated DC Date: Planned Disposition: Home Primary Insurance: [place] [employer] Discharge Planning Comments: CM met with patient to complete initial dc planning assessment. CM educated patient on the CM role and verbal consent given by patient to complete assessment. Patient lives at home with her friends where she is independent at home. At discharge patient plans to return home and feels this is a safe discharge. She plans on driving herself home. She stated that she felt safe. She states that she is independent with her care. She has her walker at her bedside and her car is out front. She has a bedside commode and table at home. She does have a daughter that could possibly drive her home. I expressed my concern about her safety and driving herself home. She dannielle got a little upset I questioned her. I told her that the MD would be the one to give her the blessing to drive herself home. She will have house calls. Patient denied known discharge needs at this time. CM will continue to follow and will assist as needed with dc plans/needs. Engineer Automated Equipment: Kelsey Capellan DCPIA - Discharge Planning Initial Assessment Updated by [email or web address]: Kelsey Capellan on 12/13/19 1:25 pm * Is the patient Alert and Oriented? Yes * How many steps to enter\exit or inside your home? RAMP * PCP ESQUIVEL * Pharmacy [facility] * Preadmission Environment Home with Family * ADLs Independent * Equipment Bedside Commode Other Walker * Other Equipment BEDSIDE TABLE * List name and contact numbers for known caregivers / representatives who currently or will assist patient after discharge: JUNE [facility] [phone] * Verbal permission to speak to the caregivers and representatives has been obtained from the patient. N/A * Community resources currently utilized None * Please name any agencies selected above. [facility] * Additional services required to return to the preadmission environment? No * Can the patient safely return to the preadmission environment? Yes * Has this patient been hospitalized within the prior 30 days at any hospital? No Last DP export: 12/13/19 2:01 p Patient Name: MELANIE RAI Page [id number] at 0849 All edits/amendments must be made on the electronic document DICTATION DATE: 12/16/19848 REPRODUCER: KIRSTEN 12/16/19848 RPT#: [id number] DC DATE:12/13/19 STATUS: DIS IN [facility] [address] [place] [address] END OF REPORT
[2019-12-16 15:11] LABS: ALDOSTERONE 14.2 ng/dL (0.0-30.0)
[2019-12-17 10:12] LABS: RENIN ACTIVITY - PLASMA 58.199 ng/mL/hr (0.167-5.380)
== END 2019-12-13 17:48 | disposition home or self-care (01) | DRG 641 ==
LOC: D.MS 11:44
PROVIDERS: Family Medicine; Internal Medicine Nephrology; ADMIT Family Medicine; ATTEND Family Medicine
DX: E87.6 Hypokalemia (principal); J96.11 Chronic respiratory failure with hypoxia; R53.1 Weakness; G62.9 Polyneuropathy, unspecified; E78.5 Hyperlipidemia, unspecified; J44.9 Chronic obstructive pulmonary disease, unspecified; Z72.0 Tobacco use; R42 Dizziness and giddiness; M79.7 Fibromyalgia; E55.9 Vitamin D deficiency, unspecified; G25.81 Restless legs syndrome; F31.9 Bipolar disorder, unspecified; F41.8 Other specified anxiety disorders; S81.011D Laceration without foreign body, right knee, subsequent encounter; W19.XXXD Unspecified fall, subsequent encounter; I10 Essential (primary) hypertension

== ENCOUNTER → 2020-05-28 11:40 | Outpatient (CLI) | payer MEDICAID ==
[2020-02-06 11:27] VITALS: BMI 35.7
[~2020-05-28 11:40] MED LIST changes: +ALDACTONE25 MG PO; +MUPIROCIN22 GM TOPICAL; +NIZORAL 2 % SH120 ML TOPICAL
[2020-05-28 12:08] LABS: CREATININE - SERUM 1.2 mg/dL (0.6-1.3); VANCOMYCIN - TROUGH 16.8 ug/mL (10.0-20.0)
== END | disposition home or self-care (01) ==
LOC: D.LABREF 11:40
PROVIDERS: ATTEND Family Medicine
DX: T84.89XA Other specified complication of internal orthopedic prosthetic devices, implants and grafts, initial encounter (principal); T84.53XA Infection and inflammatory reaction due to internal right knee prosthesis, initial encounter; Z96.651 Presence of right artificial knee joint; Z47.1 Aftercare following joint replacement surgery

== ENCOUNTER → 2020-06-01 10:31 | Outpatient (CLI) | payer BC ==
[2020-02-06 11:27] VITALS: BMI 35.7
[2020-06-01 11:14] LABS: CREATININE - SERUM 1.5 mg/dL (0.6-1.3); VANCOMYCIN - TROUGH 19.1 ug/mL (10.0-20.0)
== END | disposition home or self-care (01) ==
LOC: D.LABREF 10:31
PROVIDERS: ATTEND Family Medicine
DX: T84.53XA Infection and inflammatory reaction due to internal right knee prosthesis, initial encounter (principal); J44.9 Chronic obstructive pulmonary disease, unspecified; S22.42XD Multiple fractures of ribs, left side, subsequent encounter for fracture with routine healing; I25.10 Atherosclerotic heart disease of native coronary artery without angina pectoris

== ENCOUNTER → 2020-06-10 09:47 | Outpatient (CLI) | payer BC ==
[2020-02-06 11:27] VITALS: BMI 35.7
[2020-06-10 11:18] LABS: CREATININE - SERUM 1.2 mg/dL (0.6-1.3); VANCOMYCIN - TROUGH 17.8 ug/mL (10.0-20.0)
== END | disposition home or self-care (01) ==
LOC: D.LABREF 09:47
PROVIDERS: ATTEND Orthopaedic Surgery
DX: T84.53XA Infection and inflammatory reaction due to internal right knee prosthesis, initial encounter (principal)